=== PATIENT | male | born 1960 | race Caucasian/White ===

== ENCOUNTER 2017-06-21 03:13 | Inpatient (IN) ==
[2017-06-21] MEDS ORDERED: Ipratropium/Albuterol Neb 3 ML IH PRN (06:22)
[2017-06-21] MEDS ORDERED: Insulin Human Regular 100 UNIT in 0.9 % Sodium Chloride 100 ML IVC SCH (06:30)
[2017-06-21] MEDS ORDERED: Azithromycin 500 MG in D5% in Water 250 ML IVPB SCH (07:00)
[2017-06-21 08:11] LABS: Hematocrit 37.4 % (37.5-50.1)
[2017-06-21 08:12] LABS: Hemoglobin 13.1 g/dL (12.9-16.9); Mean Corpuscular Hemoglobin 32.4 pg (28.0-33.3); Mean Corpuscular Volume 92.6 fL (83.0-100.0); Mean Platelet Volume 9.9 fL (9.4-12.4); Platelet Count 299 K/mcL (140-400); Red Blood Count 4.04 M/mcL (4.19-5.50); Red Cell Distribution Width 12.7 % (11.5-14.5)
[2017-06-21 08:24] LABS: Alanine Aminotransferase 10 Units/L (0-55); Albumin 2.5 g/dL (3.5-5.0); Albumin/Globulin Ratio 0.6 (1.1-2.2); Alkaline Phosphatase 80 Units/L (38-126); Aspartate Amino Transferase 7 Units/L (5-34); BUN/Creatinine Ratio 14 (6-26); Bilirubin,Total 0.4 mg/dL (0.2-1.2); Blood Urea Nitrogen 13 mg/dL (8-26); Carbon Dioxide 25 mEq/L (19-29); Chloride 97 mEq/L (98-109); Globulin 4.5 g/dL (2.4-3.5); Glucose 182 mg/dL (70-99); Osmolality,Calculated 279 (280-300); Potassium 3.8 mEq/L (3.5-4.5); Sodium 132 mEq/L (136-145); eGFR For African Americans > 60 (> 60); eGFR For Non-African Americans > 60 (> 60)
[2017-06-21] MEDS ORDERED: Vancomycin 1,250 MG in D5% in Water 250 ML IVPB SCH (08:34)
[2017-06-21] MEDS ORDERED: Pregabalin 75 MG CAPSULE PO SCH (09:00)
[2017-06-21] MEDS ORDERED: Isosorbide MONOnitrate (24 HR) 30 MG TAB.ER.24H PO SCH (09:00)
[2017-06-21] MEDS ORDERED: Ipratropium/Albuterol Neb 3 ML IH SCH ×2 (09:00→10:00)
[2017-06-21 09:19] LABS: Basophils # 0.6 K/mcL (0.0-0.2); Neutrophils # 20.7 K/mcL (1.6-8.9)
[2017-06-21 09:21] LABS: Dohle Bodies Present (Not Present); Nucleated Red Blood Cells 1 /100 WBC (0); Platelet Estimate Normal (Normal)
[2017-06-21 09:41] LABS: Platelet Clumps Few (Not Present)
[2017-06-21] MEDS: Ranolazine 500 MG TAB.ER.12H PO SCH ×2 (09:54→20:00)
[2017-06-21] MEDS: 0.9 % Sodium Chloride 1,000 ML IVC SCH ×2 (09:54→22:57)
[2017-06-21] MEDS: Aspirin 81 MG TAB.CHEW PO SCH (09:54)
[2017-06-21] MEDS: Colchicine 0.6 MG TABLET PO SCH (09:54)
[2017-06-21] MEDS: Vancomycin 1,000 MG in D5% in Water 250 ML IVPB SCH ×2 (09:55→20:01)
--- NOTE | 2017-06-21 10:37 | Internal Med History&Physical ---
Date of Encounter: 06/21/17 Time of Encounter: 09:00 Assessment and Plan (1) COPD with exacerbation Current visit: Yes Status: Acute (2) Pneumonia due to gram-negative bacteria Current visit: Yes Status: Acute (3) DM2 (diabetes mellitus, type 2) Current visit: Yes Status: Acute Qualifiers: Diabetes mellitus complication status: without complication Diabetes mellitus chcf insulin use: with chcf use Qualified Code(s): E11.9 - Type 2 diabetes mellitus without complications; Z79.4 - halfway (current) use of insulin; Z79.4 - roasterman (current) use of insulin; Z79.4 - halfway ( current) use of insulin; Z79.4 - halfway (current) use of insulin (4) HTN (hypertension), benign Current visit: Yes Status: Acute 56yo male poor historian who presents as a transfer from [place] ED and found to have COPD exacerbation, pneumonia and hyperglycemia - Start Oral prednisone, Duonebs and mucinex. supplemental oxygen. Will not do IV steroids due to hyperglycemia. - Blood glucose levels have improved, pt was sent from [place] on Insulin drip but she is no longer acidotic, so will stop drip and place on SQ insulin with accuchecks - Will start on Vanc and Cefepime for pneumonia and monitor. Hope we can deescalate abx in 24hrs. Check Blood cultures. - Home meds reviewed and resumed as deemed appropriate. BP meds held due to hypotension. - GI and DVT prophylaxis with PPI and Heparin SQ. Internal Medicine - H&P: HPI Chief complaint: Cough, congestion, chills Admitted From: Home Plans for Post Hospital Care: Home History of present illness: Mr. Ibanez is a 56 year old male who was transferred from [place] ED, he has a pmh of DM2, CAD, COPD and tobacco abuse. He is a poor historian. He presented to the ED with complains for not feeling good for 2wks. He said he had been having cough and congestion for 2 weeks with no improvement. He reports he has also had chills but no fever. He denies chest pain, abdominal pain or dysuria. CXR done at [place] suggests possible vascular congestion but no visible infiltrates. Past Med Surg Social Fam HX - Past Medical History Medical history: COPD, diabetes, glaucoma, hyperlipidemia, hypertension, myocardial infarction, seizures, other Psychiatric history: depression - Past Surgical History Surgical History: splenectomy, tracheostomy, other - Social History Smoking Status: Former smoker Smokeless Tobacco Status: No Alcohol use: none Drug use: none - Family History Father Living Status: Hx Family Cardiac Disorders: Yes (CAD) Hx Family Cancer: Yes (lung CA) Internal Medicine - H&P: Meds RX: Canagliflozin/Metformin HCl [Invokamet 150-1,000 mg Tablet] 1 each PO BID [History] RX: Colchicine [Colcrys] 0.6 mg PO DAILY 04/08/15 [History] RX: DULoxetine [Cymbalta] 60 mg PO DAILY 04/08/15 [History] RX: Nortriptyline HCl 25 mg PO HS 04/08/15 [History] RX: OxyCODONE/APAP 7.5/325 [Percocet 7.5/325] 1 each PO Q8HR 04/08/15 [History] RX: Oxygen 1 each .ROUTE PRN PRN 04/08/15 [History] RX: Pravastatin Sodium [Pravachol] 20 mg PO DAILY 04/08/15 [History] RX: Pregabalin [Lyrica] 300 mg PO BID 04/08/15 [History] RX: SitaGLIPtin [Januvia] 100 mg PO DAILY PRN 04/08/15 [History] RX: Insulin Glargine,Hum.rec.anlog [Lantus Solostar] 80 unit SQ BID 04/09/15 [ History] RX: Insulin LISPRO [HumaLOG] 75 units SQ TIDWM 04/09/15 [History] RX: Albuterol Sulfate [Proair Hfa] 2 puff IH Q4H PRN 05/19/16 [History] RX: Aspirin 81 mg PO DAILY 05/19/16 [History] RX: Docusate Sodium [Dok] 100 mg PO DAILY PRN 05/19/16 [History] RX: Fluticasone/Salmeterol [Advair 250-50 Diskus] 1 puff IH BID 05/19/16 [ History] RX: Ipratropium/Albuterol Neb [Duoneb] 3 ml IH Q6HR PRN 05/19/16 [History] RX: Polyethylene Glycol 3350 [MiraLAX] 17 gm PO DAILY PRN 05/19/16 [History] RX: Clopidogrel [Plavix] 75 mg PO DAILY #30 tablet 05/20/16 [Rx] RX: Metoprolol [Lopressor] 25 mg PO BID #60 tablet 05/20/16 [Rx] RX: Nitroglycerin 0.4 mg SL Q5MIN PRN #30 tab.subl 05/20/16 [Rx] Allopurinol [Zyloprim 100 MG] 100 mg PO DAILY 06/21/17 [History] Isosorbide MONOnitrate (24 HR) [Imdur] 30 mg PO DAILY 06/21/17 [History] Ranolazine [Ranexa] 500 mg PO BID 06/21/17 [History] 3 Allergy/AdvReac Type Severity Reaction Status Date / Time No Known Allergies Allergy Verified 06/20/17 20:00 All Systems PM: A 10-system review of systems was performed and is negative for pertinent findings except as documented above in the HPI. - Constitutional Constitutional: chills, fever(s), no night sweats - EENT Eyes: no change in vision, no discharge, no pain, no photophobia Ears: no ear discharge, no ear pain, no tinnitus Nose, mouth and throat: no dysphagia, no nasal discharge, no neck pain, no sore throat - Cardiovascular Cardiovascular ROS IM: dyspnea, no chest pain, no diaphoresis, no lightheadedness, no palpitations, no syncope - Respiratory Respiratory: cough, dyspnea, no wheezing, no excessive phlegm production - Gastrointestinal Gastrointestinal: no abdominal pain, no diarrhea, no hematemesis, no hematochezia, no melena, no nausea, no vomiting - Genitourinary Genitourinary ROS male: no difficulty urinating - Musculoskeletal Musculoskeletal ROS IM: no numbness, no tingling - Integumentary Integumentary IM: no rash, no unusual bruising - Neurological Neurological ROS: no confusion, no convulsions, no focal weakness, no numbness, no tingling, no tremor(s) - Hematologic/Lymphatic Hematologic/Lymphatic: no easy bruising - Constitutional Vitals: Temp Pulse Resp BP Pulse Ox 98.8 F 93 18 100/51 88 06/21/17 07:30 06/21/17 07:30 06/21/17 07:30 06/21/17 07:30 06/21/17 07:30 General appearance: Present: A&O X 3 - Head Head exam: Present: atraumatic, normocephalic - Eye Eye exam: Present: PERRL, conjuntiva pink, sclera anicteric Pupils: Present: PERRL - Neck Neck exam general surgery: Present: supple, trachea midline. Absent: lymphadenopathy - Respiratory Respiratory exam: Present: rhonchi, wheezes. Absent: accessory muscle use, rales - Cardiovascular Cardiovascular exam: Present: RRR, +S1, +S2. Absent: diastolic murmur, gallop, rubs, systolic murmur - GI/Abdominal GI/Abdominal exam: Present: normal bowel sounds, soft, no peritoneal signs. Absent: distended, tenderness - Extremities Exam Extremities exam: Present: warm, radial pulses palpable and symmetrical. Absent : calf tenderness, cyanotic, pedal edema - Neurological Exam Neurological exam: Present: CN II-XII intact, oriented X3, no focal deficits. Absent: pronater drift, facial droop, speech deficit - Skin Skin exam: Present: dry, intact Internal Med - H&P Results - Labs CBC & Chem 7: 06/21/17 08:03 06/21/17 08:03 Labs: Short CBC 06/21/17 Range/Units 08:03 WBC 31.4 H* (4.3-11.1) K/mcL Hgb 13.1 D (12.9-16.9) g/dL Hct 37.4 L (37.5-50.1) % Plt Count 299 (140-400) K/mcL Neutrophils # 20.7 H (1.6-8.9) K/mcL BMP 06/21/17 08:03 Sodium 132 L Potassium 3.8 Chloride 97 L Carbon Dioxide 25 BUN 13 Creatinine 0.95 Glucose 182 H Calcium 9.0 Liver Function 06/21/17 Range/Units 08:03 Total Bilirubin 0.4 (0.2-1.2) mg/dL AST 7 (5-34) Units/L ALT 10 (0-55) Units/L Alkaline Phosphatase 80 (38-126) Units/L Albumin 2.5 L D (3.5-5.0) g/dL
[2017-06-21] MEDS: Ipratropium/Albuterol Neb 3 ML IH SCH ×3 (12:06→20:50)
[2017-06-21 12:22] LABS: ABG Base Excess 2 mEq/L (-2 to 3); ABG HCO3 26 mEq/L (21-27); ABG Oxygen Saturation 90 % (95-98); ABG PCO2 38 mmHg (35-45); ABG PH 7.45 pH Units (7.32-7.45); ABG PO2 56 mmHg (85-104); ABG TCO2 27 mEq/L (20-26)
[2017-06-21 12:56] LABS: Bilirubin,Urine Negative (Negative); Blood,Urine Negative (Negative); Clarity,Urine Clear (Clear); Color,Urine Yellow (Yellow); Glucose,Urine (UA) >=1000 mg/dL (Normal); Ketones,Urine Trace mg/dL (Negative); Leukocyte Esterase,Urine Negative (Negative); Nitrite,Urine Negative (Negative); Protein,Urine 30 mg/dL (Neg-Trace); Specific Gravity,Urine > 1.030 (1.010-1.025); Urobilinogen,Urine Normal (Normal)
[2017-06-21] MEDS: predniSONE 20 MG TABLET PO SCH (12:58)
[2017-06-21] MEDS: Insulin LISPRO 300 UNITS/3 ML VIAL SQ SCH ×2 (12:59→17:04)
[2017-06-21] MEDS: Cefepime HCl 2,000 MG in Water for inj. (sterile) 20 ML IVP SCH ×2 (12:59→19:58)
[2017-06-21 13:12] LABS: Bacteria,Urine None Seen per hpf (None-Few); RBC,Urine 0-3 per hpf (0-3); Squamous Epithelial Cell,Urine Few per lpf (None-Few); WBC,Urine 0-3 per hpf (0-3)
[2017-06-21] MEDS: *HR* OxyCODONE/APAP 7.5/325 TABLET PO PRN (17:02)
[2017-06-21] MEDS: *HR* Heparin 5,000 UNIT/ML VIAL SQ SCH (17:03)
[2017-06-21] MEDS ORDERED: *HR* Heparin 5,000 UNIT/ML VIAL SQ SCH (18:00)
[2017-06-21] MEDS: Insulin DETEMIR 100 UNIT/ML X5UNITS SQ SCH (19:58)
[2017-06-22] MEDS: Ipratropium/Albuterol Neb 3 ML IH SCH ×6 (00:45→21:05)
[2017-06-22] MEDS: Cefepime HCl 2,000 MG in Water for inj. (sterile) 20 ML IVP SCH (04:02)
[2017-06-22 04:14] LABS: Hematocrit 35.2 % (37.5-50.1); Hemoglobin 12.2 g/dL (12.9-16.9); Mean Corpuscular HGB Conc 34.7 g/dL (31.6-35.5); Mean Corpuscular Hemoglobin 32.5 pg (28.0-33.3); Mean Corpuscular Volume 93.9 fL (83.0-100.0); Mean Platelet Volume 10.2 fL (9.4-12.4); Platelet Count 309 K/mcL (140-400); Red Blood Count 3.75 M/mcL (4.19-5.50)
[2017-06-22 04:29] LABS: BUN/Creatinine Ratio 21 (6-26); Blood Urea Nitrogen 14 mg/dL (8-26); Carbon Dioxide 25 mEq/L (19-29); Chloride 105 mEq/L (98-109); Glucose 190 mg/dL (70-99); Magnesium 2.1 mg/dL (1.6-2.6); Osmolality,Calculated 292 (280-300); Potassium 3.9 mEq/L (3.5-4.5); Sodium 138 mEq/L (136-145); eGFR For African Americans > 60 (> 60); eGFR For Non-African Americans > 60 (> 60)
[2017-06-22] MEDS: *HR* Heparin 5,000 UNIT/ML VIAL SQ SCH ×2 (05:29→17:07)
[2017-06-22] MEDS: *HR* OxyCODONE/APAP 7.5/325 TABLET PO PRN (05:34)
[2017-06-22 05:44] LABS: Lymphocytes # 2.5 K/mcL (0.6-4.6); Monocytes # 1.3 K/mcL (0.0-1.3); Neutrophils # 27.9 K/mcL (1.6-8.9); Platelet Estimate Normal (Normal)
[2017-06-22] MEDS: Insulin LISPRO 300 UNITS/3 ML VIAL SQ SCH ×3 (08:26→17:06)
[2017-06-22] MEDS: predniSONE 20 MG TABLET PO SCH (08:37)
[2017-06-22] MEDS: Aspirin 81 MG TAB.CHEW PO SCH (08:37)
[2017-06-22] MEDS: Ranolazine 500 MG TAB.ER.12H PO SCH ×2 (08:37→21:47)
[2017-06-22] MEDS: Colchicine 0.6 MG TABLET PO SCH (08:37)
[2017-06-22] MEDS: Insulin DETEMIR 100 UNIT/ML X5UNITS SQ SCH ×2 (08:38→21:46)
[2017-06-22] MEDS: Vancomycin 1,000 MG in D5% in Water 250 ML IVPB SCH ×2 (08:38→21:45)
[2017-06-22] MEDS ORDERED: Piperacillin/Tazobactam 3.375 GM in Water for inj. (sterile) 20 ML IVP ONE (13:07)
--- NOTE | 2017-06-22 13:14 | Internal Med Progress Note ---
Date of Encounter: 06/22/17 Time of Encounter: 13:12 - Assessment and plan (1) Pneumonia due to gram-positive bacteria Current Visit: Yes Status: Acute (2) Bacteremia due to Gram-positive bacteria Current Visit: Yes Status: Acute (3) COPD with exacerbation Current Visit: Yes Status: Acute (4) DM2 (diabetes mellitus, type 2) Current Visit: Yes Status: Acute Qualifiers: Diabetes mellitus complication status: without complication Diabetes mellitus dedicated intermodal truck driver insulin use: with detention use Qualified Code(s): E11.9 - Type 2 diabetes mellitus without complications; Z79.4 - long term care social worker (current) use of insulin; Z79.4 - MCFP (current) use of insulin; Z79.4 - [facility] ( current) use of insulin; Z79.4 - [facility]FP (current) use of insulin (5) HTN (hypertension), benign Current Visit: Yes Status: Acute Assessment and plan: Persistently elevated leukocytosis, likely steroids are contributing Bactermia noted on Clood culture, will repeat cultures. Will change antibiotics to Zosyn and continue Vanc. Will consult ID for recommendations. Will order a Echo to rule out vegetation. continue steroids and nebs, will decrease Prednisone to 40mg. continue Accucheck with insulin coverage. DVT prophylaxis. - Subjective Interval history: pt reports some improvement but still feeling weak. - Constitutional Vitals: Temp Pulse Resp BP Pulse Ox 98.4 F 74 18 124/68 92 06/22/17 11:47 06/22/17 11:47 06/22/17 11:47 06/22/17 11:47 06/22/17 11:47 General appearance: Present: A&O X 3 - Head Head exam: Present: atraumatic, normocephalic - Eye Eye exam: Present: PERRL, conjuntiva pink, sclera anicteric Pupils: Present: PERRL - Neck Neck exam general surgery: Present: supple, trachea midline. Absent: lymphadenopathy - Respiratory Respiratory exam: Present: decreased breath sounds, CTAB, rhonchi. Absent: accessory muscle use, rales, wheezes - Cardiovascular Cardiovascular exam: Present: RRR, +S1, +S2. Absent: diastolic murmur, gallop, rubs, systolic murmur - GI/Abdominal GI/Abdominal exam: Present: normal bowel sounds, soft, no peritoneal signs. Absent: distended, tenderness - Extremities Exam Extremities exam: Present: warm, radial pulses palpable and symmetrical. Absent : calf tenderness, cyanotic, pedal edema - Neurological Exam Neurological exam: Present: CN II-XII intact, oriented X3, no focal deficits. Absent: pronater drift, facial droop, speech deficit - Skin Skin exam: Present: dry, intact Internal Medicine: Result - Labs CBC & Chem 7: 06/22/17 03:47 06/22/17 03:47 Labs: Short CBC 06/22/17 Range/Units 03:47 WBC 31.7 H* (4.3-11.1) K/mcL Hgb 12.2 L (12.9-16.9) g/dL Hct 35.2 L (37.5-50.1) % Plt Count 309 (140-400) K/mcL Neutrophils # 27.9 H (1.6-8.9) K/mcL BMP 06/22/17 03:47 Sodium 138 Potassium 3.9 Chloride 105 Carbon Dioxide 25 BUN 14 Creatinine 0.68 L Glucose 190 H Calcium 9.0 - ABG Interpretation ABG results: ABG ABG pH 7.45 pH Units (7.32-7.45) 06/21/17 12:18 ABG pCO2 38 mmHg (35-45) 06/21/17 12:18 ABG pO2 56 mmHg (85-104) L 06/21/17 12:18 ABG O2 Saturation 90 % (95-98) L 06/21/17 12:18 Consult Discharge Plan - Plan Referrals: Catrachita Hernández CNP [Primary Care Provider] - 06/29/17 1:00 pm
[2017-06-22] MEDS: 0.9 % Sodium Chloride 1,000 ML IVC SCH ×2 (13:26→20:17)
[2017-06-22] MEDS: Piperacillin/Tazobactam 3.375 GM/200 ML BAG IVPB SCH ×2 (14:54→21:50)
[2017-06-22] MEDS ORDERED: MetroNIDAZOLE 500 MG/100 ML 500 MG/100 ML BAG IVPB SCH (16:00)
[2017-06-23] MEDS: Ipratropium/Albuterol Neb 3 ML IH SCH ×6 (00:18→21:47)
[2017-06-23] MEDS: Vancomycin 1,250 MG in D5% in Water 250 ML IVPB SCH ×2 (06:27→17:54)
[2017-06-23] MEDS: Piperacillin/Tazobactam 3.375 GM/200 ML BAG IVPB SCH ×3 (06:28→22:20)
[2017-06-23] MEDS: *HR* Heparin 5,000 UNIT/ML VIAL SQ SCH ×2 (06:29→17:53)
[2017-06-23 06:44] LABS: Eosinophils % 0.1 %; Immature Granulocytes % 1.8 % (0-4); Nucleated Red Blood Cells 0.1 /100 WBC (0); Red Cell Distribution Width 13.2 % (11.5-14.5)
[2017-06-23 06:45] LABS: Basophils % 0.4 %; Hematocrit 37.1 % (37.5-50.1); Hemoglobin 12.7 g/dL (12.9-16.9); Lymphocytes # 4.1 K/mcL (0.6-4.6); Lymphocytes % 12.1 %; Mean Corpuscular HGB Conc 34.2 g/dL (31.6-35.5); Mean Corpuscular Hemoglobin 32.4 pg (28.0-33.3); Mean Corpuscular Volume 94.6 fL (83.0-100.0); Monocytes # 2.5 K/mcL (0.0-1.3); Monocytes % 7.5 %; Neutrophils # 26.4 K/mcL (1.6-8.9); Platelet Count 344 K/mcL (140-400); Red Blood Count 3.92 M/mcL (4.19-5.50); Segmented Neutrophils % 78.1 %
[2017-06-23 06:48] LABS: Basophils # 0.1 K/mcL (0.0-0.2)
[2017-06-23 06:56] LABS: Platelet Estimate Normal (Normal)
[2017-06-23 06:57] LABS: BUN/Creatinine Ratio 17 (6-26); Blood Urea Nitrogen 11 mg/dL (8-26); Carbon Dioxide 25 mEq/L (19-29); Chloride 110 mEq/L (98-109); Glucose 60 mg/dL (70-99); Magnesium 2.1 mg/dL (1.6-2.6); Osmolality,Calculated 293 (280-300); Potassium 3.2 mEq/L (3.5-4.5); Sodium 143 mEq/L (136-145); eGFR For African Americans > 60 (> 60); eGFR For Non-African Americans > 60 (> 60)
[2017-06-23] MEDS: 0.9 % Sodium Chloride 1,000 ML IVC SCH ×3 (08:39→20:40)
[2017-06-23] MEDS: Insulin DETEMIR 100 UNIT/ML X5UNITS SQ SCH ×2 (08:43→20:38)
[2017-06-23] MEDS: Aspirin 81 MG TAB.CHEW PO SCH (08:43)
[2017-06-23] MEDS: Colchicine 0.6 MG TABLET PO SCH (08:43)
[2017-06-23] MEDS: predniSONE 20 MG TABLET PO SCH (08:43)
[2017-06-23] MEDS: Insulin LISPRO 300 UNITS/3 ML VIAL SQ SCH ×5 (08:43→20:40)
[2017-06-23] MEDS: Ranolazine 500 MG TAB.ER.12H PO SCH ×2 (08:43→20:38)
--- NOTE | 2017-06-23 13:41 | Internal Med Progress Note ---
<Hola Crystal - Last Filed: 06/23/17 13:38> Date of Encounter: 06/23/17 Time of Encounter: 13:38 - Assessment and plan (1) MRSA bacteremia Current Visit: Yes Status: Acute Assessment and plan: MRSA + Blood cultures - On Vancomycin Echocardiogram ordered Echocardiogram from 05/2016: Impressions: Mobile strands attached to mitral valve most consistent with ruptured chordae, less likely vegetation. Clinical correlation is advised. Mild mitral regurgitation. No pulmonary hypertension. LVEF 55-60%. Severely dilated left atrium. (2) Pneumonia due to gram-positive bacteria Current Visit: Yes Status: Acute Assessment and plan: Admitted and treated for COPD exacerbation plus pneumonia. Blood cultures were obtained growing MRSA. Chest CT described as below concerning for MRSA pneumonia versus septic emboli. - Echocardiogram ordered for evaluation of bowels concern for endocarditis. CT of the chest and abdomen: IMPRESSION: Multiple peripherally located areas of focal airspace consolidation and air bronchograms and both lungs suggesting multifocal pneumonia. In addition, there multiple pulmonary nodules measuring up to 16 x 14 mm in size seen in both lungs as described above. Findings suggest multifocal pneumonia although septic emboli are in the differential. Recommend close interval follow-up to resolution. Multiple borderline sized mediastinal lymph nodes suggesting reactive mediastinal lymphadenopathy. No acute process in the abdomen. Large amount of stool throughout the colon which can be seen with constipation. Plan: - Vancomycin IV may need 6 weeks treatment (3) Coronary artery disease Current Visit: No Status: Chronic Assessment and plan: Known hx of CAD - previous echocardiogram as listed above. - Continue to maximize cardiac medications: Diabetic control, daily aspirin, Plavix, simvastatin, Qualifiers: Coronary Disease-Associated Artery/Lesion type: lime artery [place] vs. transplanted heart: lime heart Associated angina: with unspecified angina Qualified Code(s): I25.119 - Atherosclerotic heart disease of lime coronary artery with unspecified angina pectoris (4) DM2 (diabetes mellitus, type 2) Current Visit: Yes Status: Acute Assessment and plan: Known type II diabetic, currently glucose is 60 plan: - Continue current dose N - Before meals at bedtime glucose checks - Low dose inpatient sliding scale. Qualifiers: Diabetes mellitus complication status: without complication Diabetes mellitus assisted insulin use: with termination clerk use Qualified Code(s): E11.9 - Type 2 diabetes mellitus without complications; Z79.4 - correction (current) use of insulin; Z79.4 - correction (current) use of insulin; Z79.4 - termination clerk ( current) use of insulin; Z79.4 - correction (current) use of insulin (5) HTN (hypertension), benign Current Visit: Yes Status: Acute Assessment and plan: Persistently elevated leukocytosis, likely steroids are contributing Bactermia noted on Clood culture, will repeat cultures. Will change antibiotics to Zosyn and continue Vanc. Will consult ID for recommendations. Will order a Echo to rule out vegetation. continue steroids and nebs, will decrease Prednisone to 40mg. continue Accucheck with insulin coverage. DVT prophylaxis. (6) Leukocytosis Current Visit: Yes Status: Acute Assessment and plan: WBC 33, likely secondary to MRSA bacteremia, and suspected MRSA pneumonia. - Patient on vancomycin, continue to monitor daily. Qualifiers: Leukocytosis type: unspecified Qualified Code(s): D72.829 - Elevated white blood cell count, unspecified (7) DVT prophylaxis Current Visit: Yes Status: Acute Assessment and plan: SQ Heparin q8hrs. - Subjective Interval history: Mr. Ibanez has been seen and evaluated patient bedside this morning. He denies any fevers, chills, sweating, shortness of breath, chest pain or palpitations, abdominal pain nausea vomiting diarrhea. He states that he is feeling better since admission. When asked about any lesions on his body he points to his arms and his head and says that he has been bitten by myself home. According to his family member at bedside he lives a very poor living conditions and is known to be a hoarder. He says that moist by him frequently at night and that the lesions on his arms and had her from the mice. When discussing his current medical situation and plan his family member at bedside states that he would likely not be compliant and unable to make any outpatient antibiotic treatments if necessary. They are very concerned about his well-being. - Constitutional Vitals: Temp Pulse Resp BP Pulse Ox 98.1 F 80 17 135/73 97 06/23/17 11:15 06/23/17 11:29 06/23/17 11:15 06/23/17 11:15 06/23/17 11:15 General appearance: Present: A&O X 3 - Head Head exam: Present: atraumatic, normocephalic - Eye Eye exam: Present: PERRL, conjuntiva pink, sclera anicteric Pupils: Present: PERRL - Neck Neck exam general surgery: Present: supple, trachea midline. Absent: lymphadenopathy - Respiratory Respiratory exam: Present: CTAB. Absent: accessory muscle use, rales, rhonchi, wheezes - Cardiovascular Cardiovascular exam: Present: RRR, +S1, +S2. Absent: diastolic murmur, gallop, rubs, systolic murmur - GI/Abdominal GI/Abdominal exam: Present: normal bowel sounds, soft, no peritoneal signs. Absent: distended, tenderness - Extremities Exam Extremities exam: Present: warm, radial pulses palpable and symmetrical. Absent : calf tenderness, cyanotic, pedal edema - Neurological Exam Neurological exam: Present: alert, oriented X3, no focal deficits. Absent: pronater drift, facial droop, speech deficit - Skin Skin exam: Present: dry, intact Additional comments: healing scabs on his scalp, and dorsal forearms bilaterally. Internal Medicine: Result - Labs CBC & Chem 7: 06/23/17 06:30 06/23/17 06:30 Labs: Short CBC 06/23/17 Range/Units 06:30 WBC 33.8 H* (4.3-11.1) K/mcL Hgb 12.7 L (12.9-16.9) g/dL Hct 37.1 L (37.5-50.1) % Plt Count 344 (140-400) K/mcL Neutrophils # 26.4 H (1.6-8.9) K/mcL BMP 06/23/17 06:30 Sodium 143 Potassium 3.2 L Chloride 110 H Carbon Dioxide 25 BUN 11 Creatinine 0.63 L Glucose 60 L Calcium 9.0 - ABG Interpretation ABG results: ABG ABG pH 7.45 pH Units (7.32-7.45) 06/21/17 12:18 ABG pCO2 38 mmHg (35-45) 06/21/17 12:18 ABG pO2 56 mmHg (85-104) L 06/21/17 12:18 ABG O2 Saturation 90 % (95-98) L 06/21/17 12:18 - Impressions Impressions Abdomen CT 06/23/17 12:00 IMPRESSION: Multiple peripherally located areas of focal airspace consolidation and air bronchograms and both lungs suggesting multifocal pneumonia. In addition, there multiple pulmonary nodules measuring up to 16 x 14 mm in size seen in both lungs as described above. Findings suggest multifocal pneumonia although septic emboli are in the differential. Recommend close interval follow-up to resolution. Multiple borderline sized mediastinal lymph nodes suggesting reactive mediastinal lymphadenopathy. No acute process in the abdomen. Large amount of stool throughout the colon which can be seen with constipation. D/ / Isaias Tineo MD / Isaias Tineo MD Interpreting Provider: Isaias Tineo MD Chest CT 06/23/17 12:00 IMPRESSION: Multiple peripherally located areas of focal airspace consolidation and air bronchograms and both lungs suggesting multifocal pneumonia. In addition, there multiple pulmonary nodules measuring up to 16 x 14 mm in size seen in both lungs as described above. Findings suggest multifocal pneumonia although septic emboli are in the differential. Recommend close interval follow-up to resolution. Multiple borderline sized mediastinal lymph nodes suggesting reactive mediastinal lymphadenopathy. No acute process in the abdomen. Large amount of stool throughout the colon which can be seen with constipation. D/ / Isaias Tineo MD / Isaias Tineo MD Interpreting Provider: Isaias Tineo MD Consult Discharge Plan - Plan Referrals: Catrahcita Hernández CNP [Primary Care Provider] - 06/29/17 1:00 pm <Apolinar Cabrera - Last Filed: 06/23/17 18:01> Date of Encounter: 06/23/17 - Assessment and plan (1) MRSA (methicillin resistant Staphylococcus aureus) infection Current Visit: Yes Status: Acute (2) MRSA bacteremia Current Visit: Yes Status: Acute (3) MRSA pneumonia Current Visit: Yes Status: Suspected Qualifiers: Laterality: bilateral Lung location: lower lobe of lung Qualified Code(s) : J15.212 - Pneumonia due to Methicillin resistant Staphylococcus aureus (4) DKA (diabetic ketoacidoses) Current Visit: Yes Status: Resolved Qualifiers: Diabetes mellitus type: type 2 Diabetes mellitus complication detail: without coma Qualified Code(s): E11.10 - Type 2 diabetes mellitus with ketoacidosis without coma (5) HTN (hypertension), benign Current Visit: Yes Status: Acute (6) COPD (chronic obstructive pulmonary disease) Current Visit: No Status: Chronic Qualifiers: COPD type: chronic bronchitis Chronic bronchitis type: simple Qualified Code(s): J41.0 - Simple chronic bronchitis (7) Coronary artery disease Current Visit: No Status: Chronic Qualifiers: Coronary Disease-Associated Artery/Lesion type: lime artery [place] vs. transplanted heart: lime heart Associated angina: without angina Qualified Code(s): I25.10 - Atherosclerotic heart disease of lime coronary artery without angina pectoris (8) Hyperlipidemia Current Visit: No Status: Chronic Qualifiers: Hyperlipidemia type: mixed hyperlipidemia Qualified Code(s): E78.2 - Mixed hyperlipidemia (9) Noncompliance Current Visit: No Status: Chronic - Constitutional Vitals: Temp Pulse Resp BP Pulse Ox 99 F 93 18 136/76 93 06/23/17 16:45 06/23/17 16:45 06/23/17 16:45 06/23/17 16:45 06/23/17 16:45 Internal Medicine: Result - Labs CBC & Chem 7: 06/23/17 06:30 06/23/17 06:30 Labs: Short CBC 06/23/17 Range/Units 06:30 WBC 33.8 H* (4.3-11.1) K/mcL Hgb 12.7 L (12.9-16.9) g/dL Hct 37.1 L (37.5-50.1) % Plt Count 344 (140-400) K/mcL Neutrophils # 26.4 H (1.6-8.9) K/mcL BMP 06/23/17 06:30 Sodium 143 Potassium 3.2 L Chloride 110 H Carbon Dioxide 25 BUN 11 Creatinine 0.63 L Glucose 60 L Calcium 9.0 - ABG Interpretation ABG results: ABG ABG pH 7.45 pH Units (7.32-7.45) 06/21/17 12:18 ABG pCO2 38 mmHg (35-45) 06/21/17 12:18 ABG pO2 56 mmHg (85-104) L 06/21/17 12:18 ABG O2 Saturation 90 % (95-98) L 06/21/17 12:18 - Impressions Impressions Abdomen CT 06/23/17 12:00 IMPRESSION: Multiple peripherally located areas of focal airspace consolidation and air bronchograms and both lungs suggesting multifocal pneumonia. In addition, there are multiple pulmonary nodules measuring up to 16 x 14 mm in size seen in both lungs as described above. Findings suggest multifocal pneumonia although septic emboli are in the differential. Recommend close interval follow-up to resolution. Multiple borderline sized mediastinal lymph nodes suggesting reactive mediastinal lymphadenopathy. No acute process in the abdomen. Large amount of stool throughout the colon which can be seen with constipation. D/ 06/23/2017 14:07:31 Isaias Tineo MD / [place] Interpreting Provider: Isaias Tineo MD Chest CT 06/23/17 12:00 IMPRESSION: Multiple peripherally located areas of focal airspace consolidation and air bronchograms and both lungs suggesting multifocal pneumonia. In addition, there are multiple pulmonary nodules measuring up to 16 x 14 mm in size seen in both lungs as described above. Findings suggest multifocal pneumonia although septic emboli are in the differential. Recommend close interval follow-up to resolution. Multiple borderline sized mediastinal lymph nodes suggesting reactive mediastinal lymphadenopathy. No acute process in the abdomen. Large amount of stool throughout the colon which can be seen with constipation. D/ / 06/23/2017 14:07:31 Isaias Tineo MD / [place] Interpreting Provider: Isaias Tineo MD - Attending Attestation I examined this patient and my medical decision-making was reviewed with the Resident Physician on 06/23/17. I agree with the documented findings, disposition and treatment plan as described except to the extent set forth below. Mr Ibanez is currently admitted for acute DKA and MRSA bacteremia. He remains moderate to high risk due to potential for worsening clinical status. Mr Ibanez is eating dinner. He is coughing some. No fever or chills. Echo is pending. CT of chest shows multifocal areas of pneumonia or septic emboli. Denies pain. Exam Alert. Comfortable Mucus membranes dry Multiple skin wounds (reportedly mouse bites) Heart reg - no overt murmur heard Lungs with crackles heard Abd soft I/P 1. MRSA bacteremia 2. Multifocal pneumonia versus septic emboli 3. DKA resolved Further diagnoses and plan as above.
[2017-06-23] MEDS ORDERED: D5% in Water 1,000 ML IVC PRN (13:53)
[2017-06-23] MEDS ORDERED: Dextrose Gel 15 GM/37.5 ML TUBE PO PRN ×2 (13:53)
[2017-06-24] MEDS: Ipratropium/Albuterol Neb 3 ML IH SCH ×8 (00:03→23:07)
[2017-06-24] MEDS: Vancomycin 1,250 MG in D5% in Water 250 ML IVPB SCH ×2 (05:40→18:05)
[2017-06-24] MEDS: Piperacillin/Tazobactam 3.375 GM/200 ML BAG IVPB SCH (05:41)
[2017-06-24] MEDS: *HR* Heparin 5,000 UNIT/ML VIAL SQ SCH ×2 (05:42→18:05)
[2017-06-24 07:43] LABS: Hemoglobin 12.6 g/dL (12.9-16.9); Mean Corpuscular HGB Conc 33.2 g/dL (31.6-35.5); Mean Corpuscular Hemoglobin 31.9 pg (28.0-33.3); Mean Corpuscular Volume 96.2 fL (83.0-100.0); Mean Platelet Volume 9.8 fL (9.4-12.4); Nucleated Red Blood Cells 0.1 /100 WBC (0); Platelet Count 368 K/mcL (140-400); Red Blood Count 3.95 M/mcL (4.19-5.50); Red Cell Distribution Width 13.4 % (11.5-14.5)
[2017-06-24 07:57] LABS: Alanine Aminotransferase 14 Units/L (0-55); Albumin 2.4 g/dL (3.5-5.0); Albumin/Globulin Ratio 0.5 (1.1-2.2); Alkaline Phosphatase 76 Units/L (38-126); Aspartate Amino Transferase 15 Units/L (5-34); BUN/Creatinine Ratio 20 (6-26); Bilirubin,Total 0.2 mg/dL (0.2-1.2); Blood Urea Nitrogen 11 mg/dL (8-26); Calcium 8.7 mg/dL (8.6-10.8); Calcium 8.9 mg/dL (8.6-10.8); Carbon Dioxide 25 mEq/L (19-29); Carbon Dioxide 26 mEq/L (19-29); Chloride 109 mEq/L (98-109); Globulin 4.4 g/dL (2.4-3.5); Glucose 43 mg/dL (70-99); Osmolality,Calculated 296 (280-300); Sodium 145 mEq/L (136-145); Total Protein 6.8 g/dL (6.0-8.3); eGFR For African Americans > 60 (> 60); eGFR For Non-African Americans > 60 (> 60)
[2017-06-24] MEDS: Insulin LISPRO 300 UNITS/3 ML VIAL SQ SCH ×7 (08:29→20:21)
[2017-06-24 08:32] LABS: Eosinophils # 0.4 K/mcL (0.0-0.6); Lymphocytes # 5.7 K/mcL (0.6-4.6); Monocytes # 3.4 K/mcL (0.0-1.3); Neutrophils # 28.2 K/mcL (1.6-8.9); Platelet Estimate Normal (Normal); Reactive Lymphocytes Present (Not Present)
[2017-06-24] MEDS: 0.9 % Sodium Chloride 1,000 ML IVC SCH (08:33)
[2017-06-24] MEDS: Insulin DETEMIR 100 UNIT/ML X5UNITS SQ SCH (08:33)
[2017-06-24] MEDS: Aspirin 81 MG TAB.CHEW PO SCH (08:34)
[2017-06-24] MEDS: Colchicine 0.6 MG TABLET PO SCH (08:34)
[2017-06-24] MEDS: Ranolazine 500 MG TAB.ER.12H PO SCH ×2 (08:34→20:51)
[2017-06-24] MEDS: predniSONE 20 MG TABLET PO SCH (08:34)
[2017-06-24] MEDS ORDERED: Insulin DETEMIR 100 UNIT/ML X5UNITS SQ SCH (09:15)
--- NOTE | 2017-06-24 10:22 | Pulmonology Consult Note ---
Date of Encounter: 06/24/17 Time of Encounter: 10:00 Assessment and Plan (1) MRSA (methicillin resistant Staphylococcus aureus) infection Current Visit: Yes Status: Acute Patient has been diagnosed with MRSA bacteremia and I suspect reviewing his CT chest this is all related and possible septic emboli. Patient is on appropriate treatment and his vancomycin level needs to be therapeutic. His follow-up cultures has been negative, however FREIDA would be appropriate to make sure there is no underlying cardiac source for his warts looks like septic emboli. This was discussed with primary team and thank you very much for the consultation. (2) MRSA bacteremia Current Visit: Yes Status: Acute (3) COPD (chronic obstructive pulmonary disease) Current Visit: No Status: Suspected I do not feel strongly this patient has COPD exacerbation and specially with his uncontrolled diabetes recommend to stop systemic steroid and continue bronchodilators and outpatient follow-up. Qualifiers: COPD type: chronic bronchitis Chronic bronchitis type: simple Qualified Code(s): J41.0 - Simple chronic bronchitis (4) Septic pulmonary embolism Current Visit: Yes Status: Acute As I explained under MRSA infection Qualifiers: Chronicity: unspecified Acute cor pulmonale presence: without acute cor pulmonale Qualified Code(s): I26.90 - Septic pulmonary embolism without acute cor pulmonale (5) GOLDEN (obstructive sleep apnea) Current Visit: Yes Status: Chronic Patient is not compliant with his treatment and on his discharge he may follow- up as outpatient. History of Present Illness Consult date: 06/24/17 Requesting physician: Apolinar Cabrera Reason for consult: pneumonia Chief complaint: Cough and chills History of present illness: This is a pleasant 56-year-old male who was admitted to the hospital for pneumonia and he was transferred from [facility] emergency room. Patient has diagnosis of obstructive sleep apnea and he is not compliant with his CPAP and he does not know his CPAP pressure. Patient denies any smoking and he is being treated for COPD exacerbation, however he was found to have multifocal pneumonia with leukocytosis. Patient stated this morning he started to have more cough and sputum production but denies any hemoptysis or significant wheezing. Patient's environment is not very sanitary and he has history of mice bites. Patient stated he had been having cough and congestion for about 2 weeks prior to this hospitalization. He had some chills and fever and he was started with antibiotics and steroids. Patient denies any chest pain. Past Med Surg Social Fam HX - Past Medical History Medical history: COPD, diabetes, glaucoma, hyperlipidemia, hypertension, myocardial infarction, seizures, other Psychiatric history: depression - Past Surgical History Surgical History: splenectomy, tracheostomy, other - Social History Smoking Status: Former smoker Smokeless Tobacco Status: No Alcohol use: none Drug use: none - Family History Father Living Status: Hx Family Cardiac Disorders: Yes (CAD) Hx Family Cancer: Yes (lung CA) Medications and Allergies Canagliflozin/Metformin HCl [Invokamet 150-1,000 mg Tablet] 1 each PO BID [History] Colchicine [Colcrys] 0.6 mg PO DAILY 04/08/15 [History] DULoxetine [Cymbalta] 60 mg PO DAILY 04/08/15 [History] Nortriptyline HCl 25 mg PO HS 04/08/15 [History] OxyCODONE/APAP 7.5/325 [Percocet 7.5/325] 1 each PO Q8HR 04/08/15 [History] Oxygen 1 each .ROUTE PRN PRN 04/08/15 [History] Pravastatin Sodium [Pravachol] 20 mg PO DAILY 04/08/15 [History] Pregabalin [Lyrica] 300 mg PO BID 04/08/15 [History] SitaGLIPtin [Januvia] 100 mg PO DAILY PRN 04/08/15 [History] Insulin Glargine,Hum.rec.anlog [Lantus Solostar] 80 unit SQ BID 04/09/15 [ History] Insulin LISPRO [HumaLOG] 75 units SQ TIDWM 04/09/15 [History] Albuterol Sulfate [Proair Hfa] 2 puff IH Q4H PRN 05/19/16 [History] Aspirin 81 mg PO DAILY 05/19/16 [History] Docusate Sodium [Dok] 100 mg PO DAILY PRN 05/19/16 [History] Fluticasone/Salmeterol [Advair 250-50 Diskus] 1 puff IH BID 05/19/16 [History] Ipratropium/Albuterol Neb [Duoneb] 3 ml IH Q6HR PRN 05/19/16 [History] Polyethylene Glycol 3350 [MiraLAX] 17 gm PO DAILY PRN 05/19/16 [History] Clopidogrel [Plavix] 75 mg PO DAILY #30 tablet 05/20/16 [Rx] Metoprolol [Lopressor] 25 mg PO BID #60 tablet 05/20/16 [Rx] Nitroglycerin 0.4 mg SL Q5MIN PRN #30 tab.subl 05/20/16 [Rx] Allopurinol [Zyloprim 100 MG] 100 mg PO DAILY 06/21/17 [History] Isosorbide MONOnitrate (24 HR) [Imdur] 30 mg PO DAILY 06/21/17 [History] Ranolazine [Ranexa] 500 mg PO BID 06/21/17 [History] 3 Allergy/AdvReac Type Severity Reaction Status Date / Time No Known Allergies Allergy Verified 06/20/17 20:00 All Systems: A 10-system review of systems was performed and is negative for pertinent findings except as documented above in the HPI. Physical Examination Vital Signs: Vital Signs, Last 4 Hours Temp Pulse Resp BP Pulse Ox 06/24/17 09:39 131/66 06/24/17 08:48 80 06/24/17 08:21 98.8 F 80 17 173/87 96 General appearance: no acute distress Eyes: nonicteric ENT: oropharynx moist Mallampati (class): 4 Neck: supple, no lymphadenopathy Effort: normal Inspection: other (Patient is obese) Auscultation: bilateral: diminished breath sounds Percussion: bilateral: not dull Cardiovascular: regular rate and rhythm Gastrointestinal: normoactive bowel sounds, non-distended Extremities: no cyanosis normal mental status, non-focal exam mood appropriate Results - Laboratory Findings CBC and BMP: 06/24/17 07:31 06/24/17 07:31 ABG ABG pH 7.45 pH Units (7.32-7.45) 06/21/17 12:18 ABG pCO2 38 mmHg (35-45) 06/21/17 12:18 ABG pO2 56 mmHg (85-104) L 06/21/17 12:18 ABG O2 Saturation 90 % (95-98) L 06/21/17 12:18 Abnormal lab findings: Abnormal lab results WBC 38.1 K/mcL (4.3-11.1) H* 06/24/17 07:31 RBC 3.95 M/mcL (4.19-5.50) L 06/24/17 07:31 Hgb 12.6 g/dL (12.9-16.9) L 06/24/17 07:31 Band Neutrophils % 6.0 % (0-4) H 06/24/17 07:31 Metamyelocytes % 1.0 % (0) H 06/24/17 07:31 Neutrophils # 28.2 K/mcL (1.6-8.9) H 06/24/17 07:31 Lymphocytes # 5.7 K/mcL (0.6-4.6) H 06/24/17 07:31 Monocytes # 3.4 K/mcL (0.0-1.3) H 06/24/17 07:31 Nucleated RBCs/100 WBC 0.1 /100 WBC (0) H 06/24/17 07:31 Reactive Lymphocytes Present (Not Present) A 06/24/17 07:31 Dohle Bodies Present (Not Present) A 06/21/17 08:03 Clumped Platelets Few (Not Present) A 06/21/17 08:03 ABG pO2 56 mmHg (85-104) L 06/21/17 12:18 ABG Total CO2 27 mEq/L (20-26) H 06/21/17 12:18 ABG O2 Saturation 90 % (95-98) L 06/21/17 12:18 Potassium 3.0 mEq/L (3.5-4.5) L 06/24/17 07:31 Creatinine 0.55 mg/dL (0.72-1.25) L 06/24/17 07:31 Glucose 43 mg/dL (70-99) L 06/24/17 07:31 POC Glucose 139 (58-89) H 06/23/17 16:44 Albumin 2.4 g/dL (3.5-5.0) L 06/24/17 07:31 Globulin 4.4 g/dL (2.4-3.5) H 06/24/17 07:31 Albumin/Globulin Ratio 0.5 (1.1-2.2) L 06/24/17 07:31 Ur Specific Jamison > 1.030 (1.010-1.025) H 06/21/17 12:35 Urine Protein 30 mg/dL (Neg-Trace) H 06/21/17 12:35 Urine Glucose (UA) >=1000 mg/dL (Normal) H 06/21/17 12:35 Urine Ketones Trace mg/dL (Negative) H 06/21/17 12:35 Vancomycin Trough 7.3 mcg/mL (10-20) L 06/22/17 20:34 - Microbiology Findings Microbiology Findings: Microbiology, Last 48 Hours 06/22/17 13:24 Blood Culture - Preliminary Peripheral Venipuncture No growth. 06/22/17 13:24 Blood Culture - Preliminary Peripheral Venipuncture No growth. 06/21/17 10:40 Blood Culture - Preliminary Peripheral Venipuncture No growth. - Diagnostic Findings CT scan - chest: report reviewed, image reviewed - Clinical Findings Intake & Output: Intake & Output 06/23/17 06/24/17 06/24/17 23:59 07:59 15:59 Intake Total 1570 / 1570 1200 / 1200 800 / 800 Output Total 550 / 550 3200 / 3200 Balance 1020 / 1020 -2000 / -2000 800 / 800 Weight 83.6 kg Consult Discharge Plan - Plan Referrals: Catrachita Hernández, [employer] [Primary Care Provider] - 06/29/17 1:00 pm
--- NOTE | 2017-06-24 11:47 | Internal Med Progress Note ---
<Hola Crystal - Last Filed: 06/24/17 12:02> Date of Encounter: 06/24/17 Time of Encounter: 11:44 - Assessment and plan (1) MRSA bacteremia Current Visit: Yes Status: Acute Assessment and plan: MRSA + Blood cultures - On Vancomycin - Concerning findings on chest CT for septic emboli vs. multifocal pneumonia. FREIDA ordered TTE 06/22/2017: Impressions: LVEF 65%. Normal LV chamber size, wall thickness and function. Moderate left ventricular diastolic dysfunction. Chordal systolic anterior motion. No LVOT obstruction. Normal right ventricular structure and function. Moderate pulmonary hypertension. Estimated RVSP is 52 mmHg. No significant valvular dysfunction. No vegetations visualized. Repeat study or consider FREIDA as clinically indicated. (2) Pneumonia due to gram-positive bacteria Current Visit: Yes Status: Acute Assessment and plan: Admitted and treated for COPD exacerbation plus pneumonia. Blood cultures were obtained growing MRSA. Chest CT described as below concerning for MRSA pneumonia versus septic emboli. - Echocardiogram ordered for evaluation of bowels concern for endocarditis. CT of the chest and abdomen: IMPRESSION: Multiple peripherally located areas of focal airspace consolidation and air bronchograms and both lungs suggesting multifocal pneumonia. In addition, there multiple pulmonary nodules measuring up to 16 x 14 mm in size seen in both lungs as described above. Findings suggest multifocal pneumonia although septic emboli are in the differential. Recommend close interval follow-up to resolution. Multiple borderline sized mediastinal lymph nodes suggesting reactive mediastinal lymphadenopathy. No acute process in the abdomen. Large amount of stool throughout the colon which can be seen with constipation. Plan: - Vancomycin IV may need 6 weeks treatment - Pulmonary following appreciate recommendation - Doxycycline added with atypical pneumonia and recent mice bites. (3) Coronary artery disease Current Visit: No Status: Chronic Assessment and plan: Known hx of CAD - previous echocardiogram as listed above. - Continue to maximize cardiac medications: Diabetic control, daily aspirin, Plavix, simvastatin, Qualifiers: Coronary Disease-Associated Artery/Lesion type: kaw artery [place] vs. transplanted heart: kaw heart Associated angina: without angina Qualified Code(s): I25.10 - Atherosclerotic heart disease of kaw coronary artery without angina pectoris (4) DM2 (diabetes mellitus, type 2) Current Visit: Yes Status: Acute Assessment and plan: Known type II diabetic, currently glucose is 60 plan: - Continue current dose N - Before meals at bedtime glucose checks - Low dose inpatient sliding scale. Qualifiers: Diabetes mellitus complication status: without complication Diabetes mellitus ground layer insulin use: with ground layer use Qualified Code(s): E11.9 - Type 2 diabetes mellitus without complications; Z79.4 - senior living (current) use of insulin; Z79.4 - senior living (current) use of insulin; Z79.4 - senior living ( current) use of insulin; Z79.4 - vibration technician (current) use of insulin (5) HTN (hypertension), benign Current Visit: Yes Status: Acute Assessment and plan: Persistently elevated leukocytosis, likely steroids are contributing Bactermia noted on Clood culture, will repeat cultures. Will change antibiotics to Zosyn and continue Vanc. Will consult ID for recommendations. Will order a Echo to rule out vegetation. continue steroids and nebs, will decrease Prednisone to 40mg. continue Accucheck with insulin coverage. DVT prophylaxis. (6) Leukocytosis Current Visit: Yes Status: Acute Assessment and plan: WBC 38 elevated from yesterday, likely secondary to MRSA bacteremia, and suspected MRSA pneumonia. Can not rule out lymphoma or leukemia - Patient on vancomycin, continue to monitor daily. - Peripheral smear ordered. Qualifiers: Leukocytosis type: unspecified Qualified Code(s): D72.829 - Elevated white blood cell count, unspecified (7) DVT prophylaxis Current Visit: Yes Status: Acute Assessment and plan: SQ Heparin q8hrs. - Subjective Interval history: Mr. Ibanez has been seen and evaluated patient bedside this morning. He denies any fevers, chills, sweating, shortness of breath, chest pain or palpitations, abdominal pain nausea vomiting diarrhea. Denies any acute changes or events over night. He is moving bowels, eating, and voiding appropriately. He met with the restaurant maintenance technician this morning and understands the recommendations. He agrees to a FREIDA for evaluation of his cardiac valves and possible endocarditis. - Constitutional Vitals: Temp Pulse Resp BP Pulse Ox 98.8 F 80 17 131/66 96 06/24/17 08:21 06/24/17 08:48 06/24/17 08:21 06/24/17 09:39 06/24/17 08:21 General appearance: Present: A&O X 3 - Head Head exam: Present: atraumatic, normocephalic - Eye Eye exam: Present: PERRL, conjuntiva pink, sclera anicteric Pupils: Present: PERRL - Neck Neck exam general surgery: Present: supple, trachea midline. Absent: lymphadenopathy - Respiratory Respiratory exam: Present: CTAB. Absent: accessory muscle use, rales, rhonchi, wheezes - Cardiovascular Cardiovascular exam: Present: RRR, +S1, +S2. Absent: diastolic murmur, gallop, rubs, systolic murmur - GI/Abdominal GI/Abdominal exam: Present: normal bowel sounds, soft, no peritoneal signs. Absent: distended, tenderness - Extremities Exam Extremities exam: Present: warm, radial pulses palpable and symmetrical. Absent : calf tenderness, cyanotic, pedal edema - Neurological Exam Neurological exam: Present: CN II-XII intact, oriented X3, no focal deficits. Absent: pronater drift, facial droop, speech deficit - Skin Skin exam: Present: dry, intact Internal Medicine: Result - Labs CBC & Chem 7: 06/24/17 07:31 06/24/17 07:31 Labs: Short CBC 06/24/17 Range/Units 07:31 WBC 38.1 H* (4.3-11.1) K/mcL Hgb 12.6 L (12.9-16.9) g/dL Hct 38.0 (37.5-50.1) % Plt Count 368 (140-400) K/mcL Neutrophils # 28.2 H (1.6-8.9) K/mcL BMP 06/24/17 06/24/17 07:31 07:31 Sodium 145 145 Potassium 3.0 L 3.0 L Chloride 109 109 Carbon Dioxide 26 25 BUN 11 11 Creatinine 0.55 L 0.54 L Glucose 43 L 43 L Calcium 8.7 8.9 Liver Function 06/24/17 Range/Units 07:31 Total Bilirubin 0.2 (0.2-1.2) mg/dL AST 15 (5-34) Units/L ALT 14 (0-55) Units/L Alkaline Phosphatase 76 (38-126) Units/L Albumin 2.4 L (3.5-5.0) g/dL - ABG Interpretation ABG results: ABG ABG pH 7.45 pH Units (7.32-7.45) 06/21/17 12:18 ABG pCO2 38 mmHg (35-45) 12/14/17 12:18 ABG pO2 56 mmHg (85-104) L 06/21/17 12:18 ABG O2 Saturation 90 % (95-98) L 06/21/17 12:18 - Impressions Impressions Echocardiogram 06/22/17 13:18 Impressions: LVEF 65%. Normal LV chamber size, wall thickness and function. Moderate left ventricular diastolic dysfunction. Chordal systolic anterior motion. No LVOT obstruction. Normal right ventricular structure and function. Moderate pulmonary hypertension. Estimated RVSP is 52 mmHg. No significant valvular dysfunction. No vegetations visualized. Repeat study or consider FREIDA as clinically indicated. Left Ventricular Wall Motion: Rest Echo Findings All wall segments showed normal motion. Findings: Study Quality * Technically adequate exam. ECG Findings * Normal sinus rhythm. Left Ventricle * LVEF 65%. * Normal LV chamber size, wall thickness and function. * Moderate left ventricular diastolic dysfunction. * Chordal systolic anterior motion. No LVOT obstruction. Right Ventricle * Normal right ventricular structure and function. Left Atrium * Moderately dilated left atrium. Right Atrium * Normal right atrial size. Aortic Valve * Trileaflet aortic valve. * Mildly calcified left coronary cusp. * No aortic regurgitation. * No aortic stenosis. Mitral Valve * Normal mitral valve structure. * Trace mitral regurgitation. * No mitral stenosis. Tricuspid Valve * Normal tricuspid valve structure and function. * Trace tricuspid regurgitation. * Moderate pulmonary hypertension. * Estimated RVSP is 52 mmHg. Pulmonic Valve * Pulmonic valve is not well visualized. Aorta * Normally sized aortic root. Pericardium * The pericardium appears normal. IVC * Normal IVC dimensions and inspiratory collapse. Pulmonary Artery * Normal visualized portions of the main pulmonary artery. Abdomen CT 06/23/17 12:00 IMPRESSION: Multiple peripherally located areas of focal airspace consolidation and air bronchograms and both lungs suggesting multifocal pneumonia. In addition, there are multiple pulmonary nodules measuring up to 16 x 14 mm in size seen in both lungs as described above. Findings suggest multifocal pneumonia although septic emboli are in the differential. Recommend close interval follow-up to resolution. Multiple borderline sized mediastinal lymph nodes suggesting reactive mediastinal lymphadenopathy. No acute process in the abdomen. Large amount of stool throughout the colon which can be seen with constipation. D/ / 06/23/2017 14:07:31 Isaias Tineo MD / [place] Interpreting Provider: Isaias Tineo MD Chest CT 06/23/17 12:00 IMPRESSION: Multiple peripherally located areas of focal airspace consolidation and air bronchograms and both lungs suggesting multifocal pneumonia. In addition, there are multiple pulmonary nodules measuring up to 16 x 14 mm in size seen in both lungs as described above. Findings suggest multifocal pneumonia although septic emboli are in the differential. Recommend close interval follow-up to resolution. Multiple borderline sized mediastinal lymph nodes suggesting reactive mediastinal lymphadenopathy. No acute process in the abdomen. Large amount of stool throughout the colon which can be seen with constipation. D/ / 06/23/2017 14:07:31 Isaias Tineo MD / [place] Interpreting Provider: Isaias Tineo MD Consult Discharge Plan - Plan Referrals: Catrachita Hernández CNP [Primary Care Provider] - 06/29/17 1:00 pm <Apolinar Cabrera - Last Filed: 06/24/17 16:40> Date of Encounter: 06/24/17 - Assessment and plan (1) MRSA (methicillin resistant Staphylococcus aureus) infection Current Visit: Yes Status: Acute (2) MRSA bacteremia Current Visit: Yes Status: Acute (3) MRSA pneumonia Current Visit: Yes Status: Suspected Qualifiers: Laterality: bilateral Lung location: lower lobe of lung Qualified Code(s) : J15.212 - Pneumonia due to Methicillin resistant Staphylococcus aureus (4) DKA (diabetic ketoacidoses) Current Visit: Yes Status: Resolved Qualifiers: Diabetes mellitus type: type 2 Diabetes mellitus complication detail: without coma Qualified Code(s): E11.10 - Type 2 diabetes mellitus with ketoacidosis without coma (5) HTN (hypertension), benign Current Visit: Yes Status: Acute (6) COPD (chronic obstructive pulmonary disease) Current Visit: No Status: Suspected Qualifiers: COPD type: chronic bronchitis Chronic bronchitis type: simple Qualified Code(s): J41.0 - Simple chronic bronchitis (7) Coronary artery disease Current Visit: No Status: Chronic Qualifiers: Coronary Disease-Associated Artery/Lesion type: [place] artery [place] vs. 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, sequela Current Visit: Yes Status: Chronic - Constitutional Vitals: Temp Pulse Resp BP Pulse Ox 98.7 F 82 18 142/82 94 06/24/17 11:42 06/24/17 11:50 06/24/17 11:42 06/24/17 11:42 06/24/17 11:42 Internal Medicine: Result - Labs CBC & Chem 7: 06/24/17 07:31 06/24/17 07:31 Labs: Short CBC 06/24/17 Range/Units 07:31 WBC 38.1 H* (4.3-11.1) K/mcL Hgb 12.6 L (12.9-16.9) g/dL Hct 38.0 (37.5-50.1) % Plt Count 368 (140-400) K/mcL Neutrophils # 28.2 H (1.6-8.9) K/mcL BMP 06/24/17 06/24/17 07:31 07:31 Sodium 145 145 Potassium 3.0 L 3.0 L Chloride 109 109 Carbon Dioxide 26 25 BUN 11 11 Creatinine 0.55 L 0.54 L Glucose 43 L 43 L Calcium 8.7 8.9 Liver Function 06/24/17 Range/Units 07:31 Total Bilirubin 0.2 (0.2-1.2) mg/dL AST 15 (5-34) Units/L ALT 14 (0-55) Units/L Alkaline Phosphatase 76 (38-126) Units/L Albumin 2.4 L (3.5-5.0) g/dL - ABG Interpretation ABG results: ABG ABG pH 7.45 pH Units (7.32-7.45) 06/21/17 12:18 ABG pCO2 38 mmHg (35-45) 06/21/17 12:18 ABG pO2 56 mmHg (85-104) L 06/21/17 12:18 ABG O2 Saturation 90 % (95-98) L 06/21/17 12:18 - Impressions Impressions Echocardiogram 06/22/17 13:18 Impressions: LVEF 65%. Normal LV chamber size, wall thickness and function. Moderate left ventricular diastolic dysfunction. Chordal systolic anterior motion. No LVOT obstruction. Normal right ventricular structure and function. Moderate pulmonary hypertension. Estimated RVSP is 52 mmHg. No significant valvular dysfunction. No vegetations visualized. Repeat study or consider FREIDA as clinically indicated. Left Ventricular Wall Motion: Rest Echo Findings All wall segments showed normal motion. Findings: Study Quality * Technically adequate exam. ECG Findings * Normal sinus rhythm. Left Ventricle * LVEF 65%. * Normal LV chamber size, wall thickness and function. * Moderate left ventricular diastolic dysfunction. * Chordal systolic anterior motion. No LVOT obstruction. Right Ventricle * Normal right ventricular structure and function. Left Atrium * Moderately dilated left atrium. Right Atrium * Normal right atrial size. Aortic Valve * Trileaflet aortic valve. * Mildly calcified left coronary cusp. * No aortic regurgitation. * No aortic stenosis. Mitral Valve * Normal mitral valve structure. * Trace mitral regurgitation. * No mitral stenosis. Tricuspid Valve * Normal tricuspid valve structure and function. * Trace tricuspid regurgitation. * Moderate pulmonary hypertension. * Estimated RVSP is 52 mmHg. Pulmonic Valve * Pulmonic valve is not well visualized. Aorta * Normally sized aortic root. Pericardium * The pericardium appears normal. IVC * Normal IVC dimensions and inspiratory collapse. Pulmonary Artery * Normal visualized portions of the main pulmonary artery. Abdomen CT 06/23/17 12:00 IMPRESSION: Multiple peripherally located areas of focal airspace consolidation and air bronchograms and both lungs suggesting multifocal pneumonia. In addition, there are multiple pulmonary nodules measuring up to 16 x 14 mm in size seen in both lungs as described above. Findings suggest multifocal pneumonia although septic emboli are in the differential. Recommend close interval follow-up to resolution. Multiple borderline sized mediastinal lymph nodes suggesting reactive mediastinal lymphadenopathy. No acute process in the abdomen. Large amount of stool throughout the colon which can be seen with constipation. D/ 06/23/2017 14:07:31 Isaias Tineo MD / [place] Interpreting Provider: Isaias Tineo MD Chest CT 06/23/17 12:00 IMPRESSION: Multiple peripherally located areas of focal airspace consolidation and air bronchograms and both lungs suggesting multifocal pneumonia. In addition, there are multiple pulmonary nodules measuring up to 16 x 14 mm in size seen in both lungs as described above. Findings suggest multifocal pneumonia although septic emboli are in the differential. Recommend close interval follow-up to resolution. Multiple borderline sized mediastinal lymph nodes suggesting reactive mediastinal lymphadenopathy. No acute process in the abdomen. Large amount of stool throughout the colon which can be seen with constipation. D/ / 06/23/2017 14:07:31 Isaias Tineo MD / [place] Interpreting Provider: Isaias Tineo MD - Attending Attestation I examined this patient and my medical decision-making was reviewed with the Resident Physician on 06/24/17. I agree with the documented findings, disposition and treatment plan as described except to the extent set forth below. Mr Ibanez is currently admitted for acute MRSA bacteremia and concern for septic pulmonary emboli. His DKA has resolved. He remains moderate to high risk due to potential for worsening clinical status. Mr Ibanez is resting in bed. No CP or SOB at this time. No fever or chills. WBC remains markedly elevated. Denies abd pain or GI issues. Tolerating IV abx. Exam Alert. Comfortable resting in bed. Mucus membranes dry Heart reg Scattered rhonchi and crackles Abd soft I/P 1. MRSA bacteremia - on IV Vanc 2. Mouse bites - Doxycycline added 3. FREIDA ordered due to concern for septic pulmonary emboli Further diagnoses and plan as above.
[2017-06-24] MEDS ORDERED: Doxycycline 100 MG in 0.9 % Sodium Chloride Mini Bag 100 ML IVPB SCH ×2 (12:00→18:00)
[2017-06-24] MEDS: *HR* OxyCODONE/APAP 7.5/325 TABLET PO PRN (20:51)
[2017-06-24] MEDS: Doxycycline 100 MG in 0.9 % Sodium Chloride Mini Bag 100 ML IVPB SCH (23:43)
[2017-06-25] MEDS: *HR* Dextrose 50 % in Water (Syg) 50 ML SYRINGE IVP PRN ×4 (03:52→08:03)
[2017-06-25] MEDS ORDERED: D5% in 0.9% NACL 1,000 ML IVC ONE (04:52)
[2017-06-25] MEDS: Ipratropium/Albuterol Neb 3 ML IH SCH ×6 (04:55→23:16)
[2017-06-25] MEDS: *HR* Heparin 5,000 UNIT/ML VIAL SQ SCH ×2 (05:07→17:33)
[2017-06-25] MEDS: *HR* OxyCODONE/APAP 7.5/325 TABLET PO PRN ×2 (05:10→15:03)
[2017-06-25 05:59] LABS: Basophils % 0.2 %; Eosinophils % 0.3 %; Nucleated Red Blood Cells 0.1 /100 WBC (0)
[2017-06-25 06:01] LABS: Basophils # 0.1 K/mcL (0.0-0.2); Eosinophils # 0.1 K/mcL (0.0-0.6); Hematocrit 37.7 % (37.5-50.1); Hemoglobin 12.7 g/dL (12.9-16.9); Immature Granulocytes % 4.2 % (0-4); Lymphocytes # 5.5 K/mcL (0.6-4.6); Lymphocytes % 19.7 %; Mean Corpuscular HGB Conc 33.7 g/dL (31.6-35.5); Mean Corpuscular Hemoglobin 32.2 pg (28.0-33.3); Mean Corpuscular Volume 95.7 fL (83.0-100.0); Mean Platelet Volume 9.9 fL (9.4-12.4); Monocytes # 3.5 K/mcL (0.0-1.3); Monocytes % 12.5 %; Platelet Count 386 K/mcL (140-400); Red Blood Count 3.94 M/mcL (4.19-5.50); Red Cell Distribution Width 13.6 % (11.5-14.5); Segmented Neutrophils % 63.1 %
[2017-06-25 06:15] LABS: Neutrophils # 17.7 K/mcL (1.6-8.9)
[2017-06-25 06:19] LABS: Alanine Aminotransferase 15 Units/L (0-55); Albumin 2.2 g/dL (3.5-5.0); Albumin/Globulin Ratio 0.5 (1.1-2.2); Alkaline Phosphatase 70 Units/L (38-126); Aspartate Amino Transferase 17 Units/L (5-34); BUN/Creatinine Ratio 21 (6-26); Bilirubin,Total 0.2 mg/dL (0.2-1.2); Blood Urea Nitrogen 12 mg/dL (8-26); Calcium 8.8 mg/dL (8.6-10.8); Carbon Dioxide 27 mEq/L (19-29); Chloride 106 mEq/L (98-109); Globulin 4.3 g/dL (2.4-3.5); Glucose 81 mg/dL (70-99); Osmolality,Calculated 291 (280-300); Potassium 3.8 mEq/L (3.5-4.5); Sodium 141 mEq/L (136-145); Total Protein 6.5 g/dL (6.0-8.3); eGFR For African Americans > 60 (> 60); eGFR For Non-African Americans > 60 (> 60)
[2017-06-25 06:41] LABS: Large Platelets Present (Not Present); Platelet Estimate Normal (Normal); Reactive Lymphocytes Present (Not Present)
[2017-06-25] MEDS ORDERED: Vancomycin 1,250 MG in D5% in Water 250 ML IVPB SCH ×2 (07:00→10:00)
[2017-06-25 07:41] LABS: Mycoplasma pneumoniae IgG 2.24 U/L (<=0.09)
[2017-06-25] MEDS: Aspirin 81 MG TAB.CHEW PO SCH (08:01)
[2017-06-25] MEDS: Insulin LISPRO 300 UNITS/3 ML VIAL SQ SCH ×6 (08:02→20:12)
[2017-06-25] MEDS: Ranolazine 500 MG TAB.ER.12H PO SCH ×2 (08:02→20:10)
[2017-06-25] MEDS: Colchicine 0.6 MG TABLET PO SCH (08:02)
--- NOTE | 2017-06-25 08:21 | Pulmonology Progress Note ---
Date of Encounter: 06/25/17 Time of Encounter: 08:00 Assessment and Plan (1) MRSA (methicillin resistant Staphylococcus aureus) infection Current Visit: Yes Status: Acute Patient had MRSA bactremia with septic embolic and multilobar pneumonia classical for hematogenous spread now the blood cultures x 2 negative , with FREIDA negative for any vegetations , to get MRI of spine according to primary team . Patient repeated mice bite in his skin that can be potential source . Will need terminal press operator antibiotics due to multifocal MRSA pneumonia. septic emboli (2) Septic embolism Current Visit: Yes Status: Acute Patient has multiple pulmonary septic emboli most likely due ot MRSA bactremia FREIDA is negative , will need atleast 3 weeks of antibiotics MRSA bactremia with pneumonia IV Vancomycin will be the choice . Will consult ID for half-way antibiotics . To keep Vancomycin therapeutic adjusting the dose . (3) COPD (chronic obstructive pulmonary disease) Current Visit: No Status: Chronic To continue bronchodilators Qualifiers: COPD type: chronic bronchitis Chronic bronchitis type: simple Qualified Code(s): J41.0 - Simple chronic bronchitis (4) GOLDEN (obstructive sleep apnea) Current Visit: Yes Status: Acute asked him to bring the home machine to be used here in the night , patient is motivated to use . Subjective Principal diagnosis: MRSA bactremia Interval history: 56 year old male with MRSA bactremia and septic emboli now on IV antibiotics he is feeling lot better , denies any cough or sputum production has some left sided chest pain , denies any fever or chills Objective PUL Vital signs: Last Vital Signs Temp 98.1 F 06/25/17 07:49 Pulse 74 06/25/17 07:49 Resp 16 06/25/17 07:49 BP 132/84 06/25/17 07:49 Pulse Ox 92 06/25/17 07:49 Auscultation: bilateral: diminished breath sounds Results - Laboratory Findings CBC and BMP: 06/25/17 05:26 06/25/17 05:26 ABG ABG pH 7.45 pH Units (7.32-7.45) 06/21/17 12:18 ABG pCO2 38 mmHg (35-45) 06/21/17 12:18 ABG pO2 56 mmHg (85-104) L 06/21/17 12:18 ABG O2 Saturation 90 % (95-98) L 06/21/17 12:18 Abnormal lab findings: Abnormal lab results WBC 28.1 K/mcL (4.3-11.1) H 06/25/17 05:26 RBC 3.94 M/mcL (4.19-5.50) L 06/25/17 05:26 Hgb 12.7 g/dL (12.9-16.9) L 06/25/17 05:26 Immature Gran % 4.2 % (0-4) H 06/25/17 05:26 Band Neutrophils % 6.0 % (0-4) H 06/24/17 07:31 Metamyelocytes % 1.0 % (0) H 06/24/17 07:31 Neutrophils # 17.7 K/mcL (1.6-8.9) H 06/25/17 05:26 Lymphocytes # 5.5 K/mcL (0.6-4.6) H 06/25/17 05:26 Monocytes # 3.5 K/mcL (0.0-1.3) H 06/25/17 05:26 Nucleated RBCs/100 WBC 0.1 /100 WBC (0) H 06/25/17 05:26 Reactive Lymphocytes Present (Not Present) A 06/25/17 05:26 Dohle Bodies Present (Not Present) A 06/21/17 08:03 Clumped Platelets Few (Not Present) A 06/21/17 08:03 Large Platelets Present (Not Present) A 06/25/17 05:26 ABG pO2 56 mmHg (85-104) L 06/21/17 12:18 ABG Total CO2 27 mEq/L (20-26) H 06/21/17 12:18 ABG O2 Saturation 90 % (95-98) L 06/21/17 12:18 Creatinine 0.57 mg/dL (0.72-1.25) L 06/25/17 05:26 POC Glucose 48 (58-89) L* 06/25/17 07:46 Albumin 2.2 g/dL (3.5-5.0) L 06/25/17 05:26 Globulin 4.3 g/dL (2.4-3.5) H 06/25/17 05:26 Albumin/Globulin Ratio 0.5 (1.1-2.2) L 06/25/17 05:26 Ur Specific [place] > 1.030 (1.010-1.025) H 06/21/17 12:35 Urine Protein 30 mg/dL (Neg-Trace) H 06/21/17 12:35 Urine Glucose (UA) >=1000 mg/dL (Normal) H 06/21/17 12:35 Urine Ketones Trace mg/dL (Negative) H 06/21/17 12:35 Vancomycin Trough 8.6 mcg/mL (10-20) L 06/25/17 05:26 Mycoplasma pneumon IgG 2.24 U/L (<=0.09) H 06/22/17 03:47 - Microbiology Findings Microbiology Findings: Microbiology, Last 48 Hours 06/22/17 13:24 Blood Culture - Preliminary Peripheral Venipuncture No growth. 06/22/17 13:24 Blood Culture - Preliminary Peripheral Venipuncture No growth. 06/21/17 10:40 Blood Culture - Preliminary Peripheral Venipuncture No growth. - Clinical Findings Intake & Output: Intake & Output 06/24/17 06/25/17 06/25/17 23:59 07:59 15:59 Intake Total 1090 / 1090 100 / 100 Output Total 2900 / 2900 400 / 400 Balance -1810 / -1810 -300 / -300 Weight 85.1 kg Consult Discharge Plan - Plan Referrals: Catrachita Hernández CNP [Primary Care Provider] - 06/29/17 1:00 pm
[2017-06-25] MEDS ORDERED: *HR* Midazolam HCl 5 MG/5 ML VIAL IVP PRN (08:27)
[2017-06-25] MEDS ORDERED: *HR* FentaNYL (PF) 100 MCG/2 ML VIAL IVP PRN (08:27)
[2017-06-25] MEDS ORDERED: Lidocaine Viscous Oral Soln 15 ML SOLUTION MM PRN (08:27)
[2017-06-25] MEDS ORDERED: Tetracaine/Benzocaine/Butamben 200MG/SPRAY (100SPY/BOT) MM ONE (08:27)
[2017-06-25] MEDS ORDERED: 0.9 % Sodium Chloride 500 ML IVC ONE (08:27)
--- NOTE | 2017-06-25 11:04 | Internal Med Progress Note ---
<Sinan Moss - Last Filed: 06/25/17 13:14> Date of Encounter: 06/25/17 Time of Encounter: 11:03 - Assessment and plan (1) MRSA bacteremia Current Visit: Yes Status: Acute Assessment and plan: Initial cultures positive for MRSA 2/2, but repeat cultures remain negative FREIDA today did not reveal vegetations Continue with Vanc and Doxycycline as source may be from rat bites White count did decrease from 38 to 28 today Awaiting ID recommendations (2) Multifocal pneumonia Current Visit: Yes Status: Acute Assessment and plan: CT chest initially showed bilateral opacities with initial concerns for septic emboli, but FREIDA was negative Source of multifocal infiltrates possibly contributed by mouse bites, as patient 's white count did respond to Doxycycline Pulmonology is consulted, appreciate recs as he may benefit from bronchoscopy Continue with Vanc and Doxy as above (3) COPD (chronic obstructive pulmonary disease) Current Visit: No Status: Chronic Assessment and plan: Pulmonology consulted and felt symptoms were more due to PNA rather than COPD exacerbation Not currently on steroids, but will continue supplemental oxygen and breathing treatments Qualifiers: COPD type: chronic bronchitis Chronic bronchitis type: simple Qualified Code(s): J41.0 - Simple chronic bronchitis (4) Hypertension Current Visit: No Status: Chronic Assessment and plan: Blood pressures well controlled Restarting home BB Qualifiers: Hypertension type: essential hypertension Qualified Code(s): I10 - Essential (primary) hypertension (5) Coronary artery disease Current Visit: No Status: Chronic Assessment and plan: Not currently in any chest pain Continue home ASA, plavix, BB, Statin Qualifiers: Coronary Disease-Associated Artery/Lesion type: [place] artery [place] vs. transplanted heart: [place] heart Associated angina: without angina Qualified Code(s): I25.10 - Atherosclerotic heart disease of [place] coronary artery without angina pectoris (6) DM2 (diabetes mellitus, type 2) Current Visit: Yes Status: Chronic Assessment and plan: Patient has been hypoglycemic as his sugars in 30's Will decrease basal dose from 40 to 20 BID and stop preprandial insulin boluses but continue low dose SSI ACHS accuchecks Qualifiers: Diabetes mellitus complication status: without complication Diabetes mellitus nursing home insulin use: with watermelon inspector use Qualified Code(s): E11.9 - Type 2 diabetes mellitus without complications; Z79.4 - technician terminal and repeater (current) use of insulin; Z79.4 - halfway (current) use of insulin; Z79.4 - halfway ( current) use of insulin; Z79.4 - halfway (current) use of insulin (7) 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 He just returned from his FREIDA and tolerated the procedure well. He complains of chronic head, neck and back pain but otherwise has no issues with breathing as he is on his home dose of 2 L for COPD. Denies fever, nausea, vomiting, diarrhea, constipation. - Constitutional Vitals: Temp Pulse Resp BP Pulse Ox 97.8 F 73 20 124/72 93 06/25/17 08:50 06/25/17 08:50 06/25/17 08:50 06/25/17 08:50 06/25/17 08:50 General appearance: Present: cooperative, A&O X 3, pleasant, no acute distress, answers questions appropriately - Head Head exam: Present: atraumatic, normocephalic - Eye Eye exam: Present: PERRL, conjuntiva pink, sclera anicteric - Neck Neck exam general surgery: Present: supple, trachea midline. Absent: lymphadenopathy - Respiratory Respiratory exam: Present: CTAB. Absent: accessory muscle use, rales, rhonchi, wheezes - Cardiovascular Cardiovascular exam: Present: distant heart sounds, RRR, +S1, +S2. Absent: diastolic murmur, gallop, rubs, systolic murmur - GI/Abdominal GI/Abdominal exam: Present: normal bowel sounds, soft, no peritoneal signs. Absent: distended, tenderness - Extremities Exam Extremities exam: Present: warm, radial pulses palpable and symmetrical. Absent : calf tenderness, cyanotic, pedal edema - Neurological Exam Neurological exam: Present: alert, no focal deficits. Absent: facial droop, speech deficit - Skin Skin exam: Present: dry, intact Internal Medicine: Result - Labs CBC & Chem 7: 06/25/17 05:26 06/25/17 05:26 Labs: Short CBC 06/25/17 Range/Units 05:26 WBC 28.1 H (4.3-11.1) K/mcL Hgb 12.7 L (12.9-16.9) g/dL Hct 37.7 (37.5-50.1) % Plt Count 386 (140-400) K/mcL Neutrophils # 17.7 H (1.6-8.9) K/mcL BMP 06/25/17 05:26 Sodium 141 Potassium 3.8 Chloride 106 Carbon Dioxide 27 BUN 12 Creatinine 0.57 L Glucose 81 Calcium 8.8 Liver Function 06/25/17 Range/Units 05:26 Total Bilirubin 0.2 (0.2-1.2) mg/dL AST 17 (5-34) Units/L ALT 15 (0-55) Units/L Alkaline Phosphatase 70 (38-126) Units/L Albumin 2.2 L (3.5-5.0) g/dL - ABG Interpretation ABG results: ABG ABG pH 7.45 pH Units (7.32-7.45) 06/21/17 12:18 ABG pCO2 38 mmHg (35-45) 06/21/17 12:18 ABG pO2 56 mmHg (85-104) L 06/21/17 12:18 ABG O2 Saturation 90 % (95-98) L 06/21/17 12:18 - Impressions Impressions Abdomen CT 06/23/17 12:00 IMPRESSION: Multiple peripherally located areas of focal airspace consolidation and air bronchograms and both lungs suggesting multifocal pneumonia. In addition, there are multiple pulmonary nodules measuring up to 16 x 14 mm in size seen in both lungs as described above. Findings suggest multifocal pneumonia although septic emboli are in the differential. Recommend close interval follow-up to resolution. Multiple borderline sized mediastinal lymph nodes suggesting reactive mediastinal lymphadenopathy. No acute process in the abdomen. Large amount of stool throughout the colon which can be seen with constipation. D/ 06/23/2017 14:07:31 Isaias Tineo MD / [place] Interpreting Provider: Isaias Tineo MD Chest CT 06/23/17 12:00 IMPRESSION: Multiple peripherally located areas of focal airspace consolidation and air bronchograms and both lungs suggesting multifocal pneumonia. In addition, there are multiple pulmonary nodules measuring up to 16 x 14 mm in size seen in both lungs as described above. Findings suggest multifocal pneumonia although septic emboli are in the differential. Recommend close interval follow-up to resolution. Multiple borderline sized mediastinal lymph nodes suggesting reactive mediastinal lymphadenopathy. No acute process in the abdomen. Large amount of stool throughout the colon which can be seen with constipation. D/ / 06/23/2017 14:07:31 Isaias Tineo MD / [place] Interpreting Provider: Isaias Tineo MD Consult Discharge Plan - Plan Referrals: Catrachita Hernández CNP [Primary Care Provider] - 06/29/17 1:00 pm <Apolinar Cabrera - Last Filed: 06/25/17 13:53> Date of Encounter: 06/25/17 - Assessment and plan (1) MRSA (methicillin resistant Staphylococcus aureus) infection Current Visit: Yes Status: Acute (2) MRSA bacteremia Current Visit: Yes Status: Acute (3) MRSA pneumonia Current Visit: Yes Status: Suspected Qualifiers: Laterality: bilateral Lung location: lower lobe of lung Qualified Code(s) : J15.212 - Pneumonia due to Methicillin resistant Staphylococcus aureus (4) DKA (diabetic ketoacidoses) Current Visit: Yes Status: Resolved Qualifiers: Diabetes mellitus type: type 2 Diabetes mellitus complication detail: without coma Qualified Code(s): E11.10 - Type 2 diabetes mellitus with ketoacidosis without coma (5) HTN (hypertension), benign Current Visit: Yes Status: Acute (6) COPD (chronic obstructive pulmonary disease) Current Visit: No Status: Chronic Qualifiers: COPD type: chronic bronchitis Chronic bronchitis type: simple Qualified Code(s): J41.0 - Simple chronic bronchitis (7) Coronary artery disease Current Visit: No Status: Chronic Qualifiers: Coronary Disease-Associated Artery/Lesion type: [place] artery [place] vs. 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, sequela Current Visit: Yes Status: Chronic - Constitutional Vitals: Temp Pulse Resp BP Pulse Ox 97.9 F 78 19 141/83 93 06/25/17 12:00 06/25/17 12:00 06/25/17 12:00 06/25/17 12:00 06/25/17 12:00 Internal Medicine: Result - Labs CBC & Chem 7: 06/25/17 05:26 06/25/17 05:26 Labs: Short CBC 06/25/17 Range/Units 05:26 WBC 28.1 H (4.3-11.1) K/mcL Hgb 12.7 L (12.9-16.9) g/dL Hct 37.7 (37.5-50.1) % Plt Count 386 (140-400) K/mcL Neutrophils # 17.7 H (1.6-8.9) K/mcL BMP 06/25/17 05:26 Sodium 141 Potassium 3.8 Chloride 106 Carbon Dioxide 27 BUN 12 Creatinine 0.57 L Glucose 81 Calcium 8.8 Liver Function 06/25/17 Range/Units 05:26 Total Bilirubin 0.2 (0.2-1.2) mg/dL AST 17 (5-34) Units/L ALT 15 (0-55) Units/L Alkaline Phosphatase 70 (38-126) Units/L Albumin 2.2 L (3.5-5.0) g/dL - ABG Interpretation ABG results: ABG ABG pH 7.45 pH Units (7.32-7.45) 06/21/17 12:18 ABG pCO2 38 mmHg (35-45) 06/21/17 12:18 ABG pO2 56 mmHg (85-104) L 06/21/17 12:18 ABG O2 Saturation 90 % (95-98) L 06/21/17 12:18 - Impressions Impressions Abdomen CT 06/23/17 12:00 IMPRESSION: Multiple peripherally located areas of focal airspace consolidation and air bronchograms and both lungs suggesting multifocal pneumonia. In addition, there are multiple pulmonary nodules measuring up to 16 x 14 mm in size seen in both lungs as described above. Findings suggest multifocal pneumonia although septic emboli are in the differential. Recommend close interval follow-up to resolution. Multiple borderline sized mediastinal lymph nodes suggesting reactive mediastinal lymphadenopathy. No acute process in the abdomen. Large amount of stool throughout the colon which can be seen with constipation. D/ /23/2017 14:07:31 Isaias Tineo MD / [place] Interpreting Provider: Isaias Tineo MD Chest CT 06/23/17 12:00 IMPRESSION: Multiple peripherally located areas of focal airspace consolidation and air bronchograms and both lungs suggesting multifocal pneumonia. In addition, there are multiple pulmonary nodules measuring up to 16 x 14 mm in size seen in both lungs as described above. Findings suggest multifocal pneumonia although septic emboli are in the differential. Recommend close interval follow-up to resolution. Multiple borderline sized mediastinal lymph nodes suggesting reactive mediastinal lymphadenopathy. No acute process in the abdomen. Large amount of stool throughout the colon which can be seen with constipation. D/ /23/2017 14:07:31 Isaias Tineo MD / [place] Interpreting Provider: Isaias Tineo MD - Attending Attestation I examined this patient and my medical decision-making was reviewed with the Resident Physician on 06/25/17. I agree with the documented findings, disposition and treatment plan as described except to the extent set forth below. Mr Ibanez has been admitted for acute DKA and MRSA bacteremia. He remains moderate to high risk due to potential for worsening clinical status. He had FREIDA today which was negative for endocarditis. Mr Ibanez is up in chair. He denies new issues overnight. No fever or chills. Still coughing. Tolerating IV Vanc at this time. No GI issues. Exam Alert. Comfortable Mucus membranes dry Heart reg Lungs with scattered rhonchi Abd soft No edema I/P 1. MRSA bacteremia 2. Possible MRSA pneumonia 3. Mouse bites Further diagnoses and plan as above.
[2017-06-25] MEDS: Vancomycin 1,250 MG in D5% in Water 250 ML IVPB SCH ×2 (11:17→17:36)
--- NOTE | 2017-06-25 14:01 | Infectious Disease Consult ---
Date of Encounter: 06/25/17 Time of Encounter: 13:59 Assessment and Plan (1) Severe sepsis Status: Acute Assessment and plan: The patient had two SIRS criteria on admission with VANI and lactic acidosis. Likely secondary to bacteremia and PNA. Improved. The patient has been afebrile x 4 days. Leukocytosis is improving. Hypotension has resolved. Blood cultures drawn 06/20/17 were positive 2/2 sets for MRSA. Repeat blood cultures drawn 06/21/17 x 1 set and 06/22/17 x 2 sets are NGTD. (2) Bacteremia Status: Acute Assessment and plan: Causative organism: MRSA. Source unclear, but possibly PNA. He does have a history of mouse bites to his head, but clinically these do not appear infected. Complicated due to septic emboli in the lungs. Blood cultures drawn 06/20/17 were positive 2/2 sets for MRSA. Repeat blood cultures drawn 06/21/17 x 1 set and 06/22/17 x 2 sets are NGTD. No endocarditis stigmata noted on exam, but the patient does have septic emboli. He has one major and one minor Modified Mireles's Criteria. TTE negative for vegetations. Recommend a FREIDA prior to discharge. Continue Vancomycin IV. Pharmacy to dose. Goal trough ~15. Vanc trough this morning 8.6. Will discuss dosing with pharmacy. Discontinue doxycycline. Duration of treatment depends on the clinical picture, but likely 4-6 weeks of IV antibiotics will be required. Monitor renal function and for drug toxicity and dose-adjust antibiotics. business services associate to follow to assist with discharge planning. Apparently, there is concern about the patient's living conditions. He would likely benefit from ECF placement to complete his course of IV antibiotics. Consult VAT for PICC placement in preparation for discharge. (3) Multifocal pneumonia Status: Acute Assessment and plan: Causative organism unclear, but given the blood culture results, concern for MRSA. Get sputum and send for culture if the patient is able to give an adequate specimen. Check S. pneumo and Legionella UAT. Continue antibiotics as above. (4) Septic embolism Status: Acute Assessment and plan: Location: Bilateral Lungs. Secondary to MRSA bacteremia. Pulmonology consulted and following. (5) Back pain Status: Acute Assessment and plan: Location: Thoracic and lumbar spine. Etiology unclear. The patient has chronic back pain, but states it has gotten worse since being in the hospital. Given the patient's markedly elevated WBC, concern for OM/discitis. Get MRI of the T-spine and L-spine. Check ESR and CRP. Continue antibiotics as above. Pain management per the primary team. Qualifiers: Back pain location: low back pain Back pain laterality: midline Sciatica presence: without sciatica Qualified Code(s): M54.5 - Low back pain (6) Hyperglycemia Status: Acute Assessment and plan: Likely secondary to poorly controlled DM and sepsis. Improved. Management per the primary team. (7) Hyponatremia Status: Resolved Assessment and plan: Likely pseudohyponatremia from hyperglycemia. Resolved. (8) Chest pain Status: Acute Assessment and plan: Appears pleuritic. Likely secondary to PNA and septic emboli. Pain management per the primary team. Qualifiers: Chest pain type: unspecified Qualified Code(s): R07.9 - Chest pain, unspecified (9) COPD (chronic obstructive pulmonary disease) Status: Chronic Qualifiers: COPD type: chronic bronchitis Chronic bronchitis type: simple Qualified Code(s): J41.0 - Simple chronic bronchitis (10) Coronary artery disease Status: Chronic Qualifiers: Coronary Disease-Associated Artery/Lesion type: [place] artery [place] vs. transplanted heart: [place] heart Associated angina: without angina Qualified Code(s): I25.10 - Atherosclerotic heart disease of [place] coronary artery without angina pectoris (11) DM2 (diabetes mellitus, type 2) Status: Chronic Assessment and plan: Check HgbA1C. Recommend aggressive glucose monitoring and control. Management per the primary team. Qualifiers: Diabetes mellitus complication status: without complication Diabetes mellitus jail insulin use: with terminologist use Qualified Code(s): E11.9 - Type 2 diabetes mellitus without complications; Z79.4 - long term care pharmacist (current) use of insulin; Z79.4 - long term care pharmacist (current) use of insulin; Z79.4 - [facility] ( current) use of insulin; Z79.4 - [facility] (current) use of insulin (12) GOLDEN (obstructive sleep apnea) Status: Acute Infectious Disease HPI - Data of Consult Patient: new to practice Consult date: 06/25/17 Requesting Physician: Apolinar Cabrera DO Primary Care Provider: Catrachita Hernández CNP - Consult Narrative Reason for consult: MRSA bacteremia History of present illness: Mr. Ibanez is a 56 year old male with a past medical history of COPD, diabetes, glaucoma, hypertension, CA, and CAD with remote history of splenectomy. The patient was admitted to the hospital for for acute exacerbation of COPD, pneumonia, and hyponatremia. We are consulted June 25 for antibiotic recommendations regarding MRSA bacteremia. Aaron, the patient's a 56-year-old male with past medical history as stated above. The patient reports a two-week history of chest tightness, congestion, and cough. He presented to the emergency department after his family called the squad. Upon arrival, the patient was afebrile and hemodynamically stable. He did have a leukocytosis with bandemia and acute kidney injury as well as lactic acidosis. While in the emergency department, the patient developed hypotension that was responsive to IV fluids. A chest x-ray showed findings consistent with possible pulmonary vascular congestion, but based on the clinical picture, there was concern that the patient actually had pneumonia. Blood cultures were obtained 2 sets. Antibiotics were initiated and he was subsequently transferred to our hospital for further evaluation. Since admission, the patient's leukocytosis has improved. He did spike a fever with a MAXIMUM TEMPERATURE of 102.9, he has been afebrile for four days now. Lactic acidosis and acute kidney injury have resolved. Blood cultures obtained in the emergency department came back positive for MRSA 2 out of 2 sets. He had a transthoracic echocardiogram that showed an EF of 65%, but no vegetations. Repeat blood cultures obtained June 21 are no growth to date 1 out of 1 set and June 22 2/2 sets. The patient had a CT the abdomen and pelvis and chest that showed multifocal pneumonia as well as multiple pulmonary nodules concerning for septic emboli. Pulmonology was consulted and do believe the pulmonary nodules are secondary septic emboli. The patient has been on IV vancomycin. Doxycycline was added due to concern about a possible mouse bite. We 've been asked to evaluate and make further recommendations. My exam today, the patient denies any fevers or chills or rigors. He denies any headache or neck pain. He denies any congestion, earache, or sore throat. He reports chest tightness and congestion with pain that radiated into his back that is worse with cough or deep inspiration. He reports a nonproductive moist cough. He denies any nausea, vomiting, diarrhea, constipation. He denies any abdominal pain, urinary complaints, or appetite changes. He states his blood sugars at that home. He does complain of some thoracic and lumbar back pain that is chronic, but states it seems to be worse than normal. He denies any pain in his extremitites. He denies any oral thrush or rashes. He does report scabbed lesions to the top of his head from a mouse bite. The patient lives at home with his niece and her three children. He is disabled due to a back injury and is unable to work. He denies any recent travel. He denies tobacco, alcohol, or illicit drug use. CC: Apolinar Cabrera, DO Past Med Surg Social Fam HX - Past Medical History Attestation: Yes The following information was validated with the patient. Source: patient, old records reviewed, nursing notes reviewed Medical history: COPD, diabetes, glaucoma, hyperlipidemia, hypertension, myocardial infarction, seizures, other Psychiatric history: depression - Past Surgical History Surgical History: splenectomy, tracheostomy, other - Social History Smoking Status: Former smoker Smokeless Tobacco Status: No Alcohol use: none Drug use: none Occupational status: disabled Current living situation: Home, With Family Activity Level: Independent ambulation Recent Out of Country Travel Within the Last 8 Weeks: No Exposure or Possible Exposure to Illness During Travel: No - Family History Father Living Status: Hx Family Cardiac Disorders: Yes (CAD) Hx Family Cancer: Yes (lung CA) Infectious Disease-CN:Meds Canagliflozin/Metformin HCl [Invokamet 150-1,000 mg Tablet] 1 each PO BID [History] Colchicine [Colcrys] 0.6 mg PO DAILY 04/08/15 [History] DULoxetine [Cymbalta] 60 mg PO DAILY 04/08/15 [History] Nortriptyline HCl 25 mg PO HS 04/08/15 [History] OxyCODONE/APAP 7.5/325 [Percocet 7.5/325] 1 each PO Q8HR 04/08/15 [History] Oxygen 1 each .ROUTE PRN PRN 04/08/15 [History] Pravastatin Sodium [Pravachol] 20 mg PO DAILY 04/08/15 [History] Pregabalin [Lyrica] 300 mg PO BID 04/08/15 [History] SitaGLIPtin [Januvia] 100 mg PO DAILY PRN 04/08/15 [History] Insulin Glargine,Hum.rec.anlog [Lantus Solostar] 80 unit SQ BID 04/09/15 [ History] Insulin LISPRO [HumaLOG] 75 units SQ TIDWM 04/09/15 [History] Albuterol Sulfate [Proair Hfa] 2 puff IH Q4H PRN 05/19/16 [History] Aspirin 81 mg PO DAILY 05/19/16 [History] Docusate Sodium [Dok] 100 mg PO DAILY PRN 05/19/16 [History] Fluticasone/Salmeterol [Advair 250-50 Diskus] 1 puff IH BID 05/19/16 [History] Ipratropium/Albuterol Neb [Duoneb] 3 ml IH Q6HR PRN 05/19/16 [History] Polyethylene Glycol 3350 [MiraLAX] 17 gm PO DAILY PRN 05/19/16 [History] Clopidogrel [Plavix] 75 mg PO DAILY #30 tablet 05/20/16 [Rx] Metoprolol [Lopressor] 25 mg PO BID #60 tablet 05/20/16 [Rx] Nitroglycerin 0.4 mg SL Q5MIN PRN #30 tab.subl 05/20/16 [Rx] Allopurinol [Zyloprim 100 MG] 100 mg PO DAILY 06/21/17 [History] Isosorbide MONOnitrate (24 HR) [Imdur] 30 mg PO DAILY 06/21/17 [History] Ranolazine [Ranexa] 500 mg PO BID 06/21/17 [History] 3 Allergy/AdvReac Type Severity Reaction Status Date / Time No Known Allergies Allergy Verified 06/20/17 20:00 All systems: reviewed and no additional remarkable complaints except as stated Exam - Constitutional Vitals: Temp Pulse Resp BP Pulse Ox 97.9 F 78 19 141/83 93 06/25/17 12:00 06/25/17 12:00 06/25/17 12:00 06/25/17 12:00 06/25/17 12:00 General appearance: cooperative, no acute distress, obese - Head Head exam: Present: atraumatic, normal inspection, normocephalic - Eye Eye exam: Present: EOMI, normal appearance, PERRL Pupils: Present: normal accommodation Additional comments: No subconjunctival hemorrhage noted. - ENT ENT exam: Present: mucous membranes moist - Neck Neck exam: Present: normal inspection - Respiratory Respiratory exam: Present: CTAB. Absent: rales, respiratory distress, rhonchi, wheezes - Cardiovascular Cardiovascular exam: Present: RRR, +S1, +S2 - GI/Abdominal GI/Abdominal exam: Present: distended (obese), normal bowel sounds, soft. Absent: tenderness - Extremities Exam Extremities exam: Present: normal inspection. Absent: joint swelling, pedal edema, tenderness - Back Exam Back exam: Present: normal inspection, vertebral tenderness (Thoracic and lumbar spine). Absent: paraspinal tenderness - Neurological Exam Neurological exam: Present: alert, oriented X3, no focal deficits - Psychiatric Psychiatric exam: Present: normal affect, normal mood - Skin Skin exam: Present: dry, intact, normal color, warm Additional comments: No endocarditis stigmata noted. Small, scabbed lesions noted to the top of the head. No erythema, warmth, or drainage noted. Infectious Disease CN: Results - Labs CBC & Chem 7: 06/26/17 05:13 06/26/17 05:13 Cultures: Cultures 06/22/17 13:24 Blood Culture - Preliminary Peripheral Venipuncture No growth. 06/22/17 13:24 Blood Culture - Preliminary Peripheral Venipuncture No growth. 06/21/17 10:40 Blood Culture - Preliminary Peripheral Venipuncture No growth. 06/21/17 12:35 Legionella Antigen - Final Urine,Clean Catch Serology: Serology 06/22/17 06/21/17 Range/Units 03:47 12:35 Urine Color Yellow (Yellow) Urine Clarity Clear (Clear) Urine pH 6.0 (5.0-8.0) pH Units Ur Specific [place] > 1.030 H (1.010-1.025) Urine Protein 30 H (Neg-Trace) mg/dL Urine Glucose (UA) >=1000 H (Normal) mg/dL Urine Ketones Trace H (Negative) mg/dL Urine Blood Negative (Negative) Urine Nitrite Negative (Negative) Urine Bilirubin Negative (Negative) Urine Urobilinogen Normal (Normal) mg/dL Ur Leukocyte Esterase Negative (Negative) Urine Microscopic RBC 0-3 (0-3) per hpf Urine Microscopic WBC 0-3 (0-3) per hpf Ur Squamous Epith Cells Few (None-Few) per lpf Urine Bacteria None Seen (None-Few) per hpf Ur Culture Indicated? NO (NO) Mycoplasma pneumon IgG 2.24 H (<=0.09) U/L Mycoplasma pneumon IgM 0.17 (<=0.76) U/L Consult Discharge Plan - Plan Referrals: Catrachita Hernández, KELLY [Primary Care Provider] - 06/29/17 1:00 pm
[2017-06-25] MEDS: Doxycycline 100 MG in 0.9 % Sodium Chloride Mini Bag 100 ML IVPB SCH ×2 (15:03→20:50)
[2017-06-25] MEDS: Insulin DETEMIR 100 UNIT/ML X5UNITS SQ SCH (20:20)
[2017-06-26] MEDS: Doxycycline 100 MG in 0.9 % Sodium Chloride Mini Bag 100 ML IVPB SCH ×2 (03:30→12:12)
[2017-06-26] MEDS: Ipratropium/Albuterol Neb 3 ML IH SCH ×6 (03:39→22:45)
[2017-06-26] MEDS: Vancomycin 1,250 MG in D5% in Water 250 ML IVPB SCH ×3 (04:44→20:20)
[2017-06-26] MEDS: *HR* Heparin 5,000 UNIT/ML VIAL SQ SCH ×2 (05:27→17:11)
[2017-06-26 05:35] LABS: BUN/Creatinine Ratio 17 (6-26); Blood Urea Nitrogen 10 mg/dL (8-26); Calcium 9.1 mg/dL (8.6-10.8); Carbon Dioxide 28 mEq/L (19-29); Chloride 103 mEq/L (98-109); Glucose 58 mg/dL (70-99); Hematocrit 39.4 % (37.5-50.1); Hemoglobin 12.7 g/dL (12.9-16.9); Mean Corpuscular HGB Conc 32.2 g/dL (31.6-35.5); Mean Corpuscular Hemoglobin 31.3 pg (28.0-33.3); Mean Platelet Volume 9.6 fL (9.4-12.4); Osmolality,Calculated 285 (280-300); Platelet Count 452 K/mcL (140-400); Red Blood Count 4.06 M/mcL (4.19-5.50); Red Cell Distribution Width 13.5 % (11.5-14.5); Sodium 139 mEq/L (136-145); eGFR For African Americans > 60 (> 60); eGFR For Non-African Americans > 60 (> 60)
[2017-06-26 06:16] LABS: Lymphocytes # 5.7 K/mcL (0.6-4.6); Monocytes # 2.4 K/mcL (0.0-1.3); Neutrophils # 15.6 K/mcL (1.6-8.9)
[2017-06-26 06:17] LABS: Reactive Lymphocytes Present (Not Present)
[2017-06-26] MEDS: Insulin LISPRO 300 UNITS/3 ML VIAL SQ SCH ×4 (07:45→20:39)
[2017-06-26] MEDS: Aspirin 81 MG TAB.CHEW PO SCH (08:30)
[2017-06-26] MEDS: Colchicine 0.6 MG TABLET PO SCH (08:30)
[2017-06-26] MEDS: Ranolazine 500 MG TAB.ER.12H PO SCH ×2 (08:30→20:38)
[2017-06-26] MEDS: Insulin DETEMIR 100 UNIT/ML X5UNITS SQ SCH ×2 (08:31→20:39)
--- NOTE | 2017-06-26 09:11 | Internal Med Progress Note ---
<Sinan Moss - Last Filed: 06/26/17 10:26> Date of Encounter: 06/26/17 Time of Encounter: 09:10 - Assessment and plan (1) MRSA bacteremia Current Visit: Yes Status: Acute Assessment and plan: Initial cultures positive for MRSA 2/, but repeat cultures remain negative FREIDA 06/25 did not reveal vegetations Continue with Vanc day 5 and Doxycycline day 3 as source may be from rat bites White count did decrease from 28 to 23 today Awaiting ID recommendations (2) Multifocal pneumonia Current Visit: Yes Status: Acute Assessment and plan: CT chest initially showed bilateral opacities with initial concerns for septic emboli, but FREIDA was negative Source of multifocal infiltrates possibly contributed by mouse bites, as patient 's white count did respond to Doxycycline Pulmonology is consulted, who do not believe he needs urgent bronch at this time Continue with Vanc and Doxy as above (3) COPD (chronic obstructive pulmonary disease) Current Visit: No Status: Chronic Assessment and plan: Pulmonology consulted and felt symptoms were more due to PNA rather than COPD exacerbation Not currently on steroids, but will continue supplemental oxygen and breathing treatments Qualifiers: COPD type: chronic bronchitis Chronic bronchitis type: simple Qualified Code(s): J41.0 - Simple chronic bronchitis (4) Hypertension Current Visit: No Status: Chronic Assessment and plan: Blood pressures well controlled Restarted home BB Qualifiers: Hypertension type: essential hypertension Qualified Code(s): I10 - Essential (primary) hypertension (5) Coronary artery disease Current Visit: No Status: Chronic Assessment and plan: Patient did complain of left sided chest pain but this may be due to pleuritic pain from PNA as it is worse with cough Will obtain EKG and troponin to rule out ACS Continue home ASA, plavix, BB, Statin Qualifiers: Coronary Disease-Associated Artery/Lesion type: [place] artery [place] vs. transplanted heart: e[place] heart Associated angina: without angina Qualified Code(s): I25.10 - Atherosclerotic heart disease of [place] coronary artery without angina pectoris (6) DM2 (diabetes mellitus, type 2) Current Visit: Yes Status: Chronic Assessment and plan: Patient's hypoglycemia slightly improved from yesterday after basal dose decreased from 40 to 20 BID Continue to hold preprandial insulin boluses but continue low dose SSI ACHS accuchecks Qualifiers: Diabetes mellitus complication status: without complication Diabetes mellitus exterminator helper insulin use: with exterminator helper use Qualified Code(s): E11.9 - Type 2 diabetes mellitus without complications; Z79.4 - alf (current) use of insulin; Z79.4 - alf (current) use of insulin; Z79.4 - alf ( current) use of insulin; Z79.4 - meterman (current) use of insulin (7) 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 He states he is having left sided chest pain that started last night but it started after an infusion which he wasn't sure what it was. He has no cardiac history of note but states his breathing is fine. No issues with fever, nausea, vomiting, diarrhea, or constipation. - Constitutional Vitals: Temp Pulse Resp BP Pulse Ox 98.7 F 78 18 106/66 95 06/26/17 07:04 06/26/17 08:41 06/26/17 07:04 06/26/17 07:04 06/26/17 07:04 General appearance: Present: cooperative, A&O X 3, pleasant, no acute distress, answers questions appropriately Internal Medicine: Result - Labs CBC & Chem 7: 06/26/17 05:13 06/26/17 05:13 Labs: Short CBC 06/26/17 Range/Units 05:13 WBC 23.6 H (4.3-11.1) K/mcL Hgb 12.7 L (12.9-16.9) g/dL Hct 39.4 (37.5-50.1) % Plt Count 452 H (140-400) K/mcL Neutrophils # 15.6 H (1.6-8.9) K/mcL BMP 06/26/17 05:13 Sodium 139 Potassium 4.0 Chloride 103 Carbon Dioxide 28 BUN 10 Creatinine 0.60 L Glucose 58 L Calcium 9.1 - ABG Interpretation ABG results: ABG ABG pH 7.45 pH Units (7.32-7.45) 06/21/17 12:18 ABG pCO2 38 mmHg (35-45) 06/21/17 12:18 ABG pO2 56 mmHg (85-104) L 06/21/17 12:18 ABG O2 Saturation 90 % (95-98) L 06/21/17 12:18 - Impressions Impressions Lumbar Spine MRI 06/25/17 14:00 IMPRESSION: Disc and osteophytes result in mild narrowing of the neural foramina throughout the lumbar region as discussed in detail above. No stenosis of the thecal sac in the lumbar region. No abnormal enhancement in the lumbar region. D/ / 06/25/2017 19:56:58 Octavia Guidry MD / [facility] Interpreting Provider: Octavia Guidry MD Thoracic Spine MRI 06/25/17 14:00 IMPRESSION: No disc abnormality, stenosis of the thecal sac, or narrowing of the neural foramina in the thoracic region. No abnormal enhancement in the thoracic spine. Consolidation in the left lung base. D/ / 06/25/2017 19:59:14 Octavia Guidry MD / [facility] Interpreting Provider: Octavia Guidry MD Consult Discharge Plan - Plan Referrals: Catrachita Hernández CNP [Primary Care Provider] - 06/29/17 1:00 pm Brenda Beltran CNP [Advanced Practice Nurse] - 07/10/17 9:20 am <Tyson Wilder - Last Filed: 06/26/17 16:01> Date of Encounter: 06/26/17 - Constitutional Vitals: Temp Pulse Resp BP Pulse Ox 99.2 F 75 18 112/65 94 06/26/17 11:41 06/26/17 15:26 06/26/17 11:41 06/26/17 11:41 06/26/17 11:41 Internal Medicine: Result - Labs CBC & Chem 7: 06/26/17 05:13 06/26/17 05:13 Labs: Short CBC 06/26/17 Range/Units 05:13 WBC 23.6 H (4.3-11.1) K/mcL Hgb 12.7 L (12.9-16.9) g/dL Hct 39.4 (37.5-50.1) % Plt Count 452 H (140-400) K/mcL Neutrophils # 15.6 H (1.6-8.9) K/mcL BMP 06/26/17 05:13 Sodium 139 Potassium 4.0 Chloride 103 Carbon Dioxide 28 BUN 10 Creatinine 0.60 L Glucose 58 L Calcium 9.1 Cardiac Enzymes 06/26/17 Range/Units 09:24 Troponin I 0.01 (0-0.03) ng/mL - ABG Interpretation ABG results: ABG ABG pH 7.45 pH Units (7.32-7.45) 06/21/17 12:18 ABG pCO2 38 mmHg (35-45) 06/21/17 12:18 ABG pO2 56 mmHg (85-104) L 06/21/17 12:18 ABG O2 Saturation 90 % (95-98) L 06/21/17 12:18 - Impressions Impressions Lumbar Spine MRI 06/25/17 14:00 IMPRESSION: Disc and osteophytes result in mild narrowing of the neural foramina throughout the lumbar region as discussed in detail above. No stenosis of the thecal sac in the lumbar region. No abnormal enhancement in the lumbar region. D/ / 06/25/2017 19:56:58 Octavia Guidry MD / [facility] Interpreting Provider: Octavia Guidry MD Thoracic Spine MRI 06/25/17 14:00 IMPRESSION: No disc abnormality, stenosis of the thecal sac, or narrowing of the neural foramina in the thoracic region. No abnormal enhancement in the thoracic spine. Consolidation in the left lung base. D/ / 06/25/2017 19:59:14 Octavia Guidry MD / [facility] Interpreting Provider: Octavia Guidry MD - Attending Attestation I conducted a face to face diagnostic evaluation of this patient and my medical decision-making was reviewed with the Resident Physician, Dr Sinan Moss. I agree with the documented findings, disposition and treatment plan as described except to the extent set forth below: Patient reports improvement and his left-sided chest pain. He states that cough has also improved. On exam he is in no acute distress. Heart is regular. Lungs are clear. EKG personally reviewed shows normal sinus rhythm, normal rate, normal axis and intervals, no acute ST and T-wave changes. Plan: Continue with IV vancomycin. I discussed the need for subacute rehabilitation for the patient today and he is in agreement with disposition planning. All listed medical problems are new to me today. Tyson Wilder MD
--- NOTE | 2017-06-26 11:16 | Pulmonology Progress Note ---
Date of Encounter: 06/26/17 Time of Encounter: 11:00 Assessment and Plan (1) MRSA (methicillin resistant Staphylococcus aureus) infection Current Visit: Yes Status: Acute Patient had MRSA bactremia with septic embolic and multilobar pneumonia classical for hematogenous spread now the blood cultures x 2 negative , with FREIDA negative for any vegetations , to get MRI of spine according to primary team . Patient repeated mice bite in his skin that can be potential source . Will need vermin exterminator antibiotics due to multifocal MRSA pneumonia for atleast 4 weeks (2) Septic embolism Current Visit: Yes Status: Acute Patient has multiple pulmonary septic emboli most likely due ot MRSA bactremia FREIDA is negative , will need atleast 4 weeks of antibiotics MRSA bactremia with pneumonia IV Vancomycin will be the choice . Therapeutic levels to be done drawn today (3) COPD (chronic obstructive pulmonary disease) Current Visit: No Status: Chronic To continue bronchodilators Qualifiers: COPD type: chronic bronchitis Chronic bronchitis type: simple Qualified Code(s): J41.0 - Simple chronic bronchitis (4) GOLDEN (obstructive sleep apnea) Current Visit: Yes Status: Acute Patient is motivated to use PAP therapy regularly. Subjective Principal diagnosis: MRSA bactremia Interval history: 56 year old male with MRSA bactremia and septic emboli now on IV antibiotics he is feeling lot better was sitting eating his lunch not back to his baseline yet Objective PUL Vital signs: Last Vital Signs Temp 98.7 F 06/26/17 07:04 Pulse 78 06/26/17 08:41 Resp 18 06/26/17 07:04 BP 106/66 06/26/17 07:04 Pulse Ox 95 06/26/17 07:04 Auscultation: bilateral: diminished breath sounds, other (some basilar scattered crackles ) Results - Laboratory Findings CBC and BMP: 06/26/17 05:13 06/26/17 05:13 ABG ABG pH 7.45 pH Units (7.32-7.45) 06/21/17 12:18 ABG pCO2 38 mmHg (35-45) 06/21/17 12:18 ABG pO2 56 mmHg (85-104) L 06/21/17 12:18 ABG O2 Saturation 90 % (95-98) L 06/21/17 12:18 Abnormal lab findings: Abnormal lab results WBC 23.6 K/mcL (4.3-11.1) H 06/26/17 05:13 RBC 4.06 M/mcL (4.19-5.50) L 06/26/17 05:13 Hgb 12.7 g/dL (12.9-16.9) L 06/26/17 05:13 Plt Count 452 K/mcL (140-400) H 06/26/17 05:13 Immature Gran % 4.2 % (0-4) H 06/25/17 05:26 Band Neutrophils % 22.0 % (0-4) H 06/26/17 05:13 Metamyelocytes % 1.0 % (0) H 06/24/17 07:31 Neutrophils # 15.6 K/mcL (1.6-8.9) H 06/26/17 05:13 Lymphocytes # 5.7 K/mcL (0.6-4.6) H 06/26/17 05:13 Monocytes # 2.4 K/mcL (0.0-1.3) H 06/26/17 05:13 Nucleated RBCs/100 WBC 0.1 /100 WBC (0) H 06/25/17 05:26 Reactive Lymphocytes Present (Not Present) A 06/26/17 05:13 Dohle Bodies Present (Not Present) A 06/21/17 08:03 Platelet Estimate Slight increase (Normal) H 06/26/17 05:13 Clumped Platelets Few (Not Present) A 06/21/17 08:03 Large Platelets Present (Not Present) A 06/25/17 05:26 ABG pO2 56 mmHg (85-104) L 06/21/17 12:18 ABG Total CO2 27 mEq/L (20-26) H 06/21/17 12:18 ABG O2 Saturation 90 % (95-98) L 06/21/17 12:18 Creatinine 0.60 mg/dL (0.72-1.25) L 06/26/17 05:13 Glucose 58 mg/dL (70-99) L 06/26/17 05:13 POC Glucose 257 (58-89) H 06/25/17 17:02 Albumin 2.2 g/dL (3.5-5.0) L 06/25/17 05:26 Globulin 4.3 g/dL (2.4-3.5) H 06/25/17 05:26 Albumin/Globulin Ratio 0.5 (1.1-2.2) L 06/25/17 05:26 Ur Specific [place] > 1.030 (1.010-1.025) H 06/21/17 12:35 Urine Protein 30 mg/dL (Neg-Trace) H 06/21/17 12:35 Urine Glucose (UA) >=1000 mg/dL (Normal) H 06/21/17 12:35 Urine Ketones Trace mg/dL (Negative) H 06/21/17 12:35 Vancomycin Trough 8.6 mcg/mL (10-20) L 06/25/17 05:26 Mycoplasma pneumon IgG 2.24 U/L (<=0.09) H 06/22/17 03:47 - Microbiology Findings Microbiology Findings: Microbiology, Last 48 Hours 06/22/17 13:24 Blood Culture - Preliminary Peripheral Venipuncture No growth. 06/22/17 13:24 Blood Culture - Preliminary Peripheral Venipuncture No growth. - Clinical Findings Intake & Output: Intake & Output 06/25/17 06/26/17 06/26/17 23:59 07:59 15:59 Intake Total 750 / 750 570 / 570 Output Total 750 / 750 300 / 300 400 / 400 Balance 0 / 0 270 / 270 -400 / -400 Weight 84.4 kg Consult Discharge Plan - Plan Referrals: Catrachita Hernández CNP [Primary Care Provider] - 06/29/17 1:00 pm Brenda Beltran CNP [Advanced Practice Nurse] - 07/10/17 9:20 am
--- NOTE | 2017-06-26 12:49 | Infectious Disease Progress No ---
Date of Encounter: 06/26/17 Time of Encounter: 12:45 - Assessment and Plan (1) Severe sepsis Current Visit: Yes Status: Acute The patient had two SIRS criteria on admission with VANI and lactic acidosis. Likely secondary to bacteremia and PNA. Improved. The patient has been afebrile x 4 days. Leukocytosis is improving. Hypotension has resolved. Blood cultures drawn 06/20/17 were positive 2/2 sets for MRSA. Repeat blood cultures drawn 06/21/17 x 1 set and 06/22/17 x 2 sets are negative. (2) Bacteremia Current Visit: Yes Status: Acute Causative organism: MRSA. Source unclear, but possibly PNA. He does have a history of mouse bites to his head, but clinically these do not appear infected. Complicated due to septic emboli in the lungs. Blood cultures drawn 06/20/17 were positive 2/2 sets for MRSA. Repeat blood cultures drawn 06/21/17 x 1 set and 06/22/17 x 2 sets are negative. No endocarditis stigmata noted on exam, but the patient does have septic emboli. He has one major and one minor Modified Mireles's Criteria. TTE negative for vegetations. FREIDA negative. Continue Vancomycin IV. Pharmacy to dose. Goal trough ~15. Vanc trough 8.6. Dosing discussed with pharmacy. Discontinue doxycycline. Duration of treatment depends on the clinical picture, but likely 4 weeks of IV antibiotics will be required. Monitor renal function and for drug toxicity and dose-adjust antibiotics. environmental services aide to follow to assist with discharge planning. Apparently, there is concern about the patient's living conditions. He would likely benefit from ECF placement to complete his course of IV antibiotics. Consult VAT for PICC placement in preparation for discharge. Will need weekly CBC, BUN/Cr, and Vanc trough every Sunday for the duration of antibiotic therapy. Weekly PICC care per protocol. Follow up with ID 07/10/17 at 0920. (3) Multifocal pneumonia Current Visit: Yes Status: Acute Causative organism unclear, but given the blood culture results, concern for MRSA. Get sputum and send for culture if the patient is able to give an adequate specimen. Check S. pneumo and Legionella UAT. Continue antibiotics as above. Continue contact and respiratory precautions. (4) Septic embolism Current Visit: Yes Status: Acute Location: Bilateral Lungs. Secondary to MRSA bacteremia. Pulmonology consulted and following. (5) Back pain Current Visit: Yes Status: Acute Location: Thoracic and lumbar spine. Etiology unclear. The patient has chronic back pain, but states it has gotten worse since being in the hospital. Given the patient's markedly elevated WBC, concern for OM/discitis. MRI negative for OM/discitis. Check ESR and CRP. Continue antibiotics as above. Pain management per the primary team. Qualifiers: Back pain location: low back pain Chronicity: chronic Back pain laterality: midline Sciatica presence: without sciatica Qualified Code(s): M54.5 - Low back pain; G89.29 - Other chronic pain; G89.29 - Other chronic pain (6) Hyperglycemia Current Visit: No Status: Acute Likely secondary to poorly controlled DM and sepsis. Improved. Management per the primary team. (7) Hyponatremia Current Visit: No Status: Resolved Likely pseudohyponatremia from hyperglycemia. Resolved. (8) Chest pain Current Visit: No Status: Acute Appears pleuritic. Likely secondary to PNA and septic emboli. Pain management per the primary team. Qualifiers: Chest pain type: unspecified Qualified Code(s): R07.9 - Chest pain, unspecified (9) COPD (chronic obstructive pulmonary disease) Current Visit: No Status: Chronic Qualifiers: COPD type: chronic bronchitis Chronic bronchitis type: simple Qualified Code(s): J41.0 - Simple chronic bronchitis (10) Coronary artery disease Current Visit: No Status: Chronic Qualifiers: Coronary Disease-Associated Artery/Lesion type: [place] artery [place] vs. transplanted heart: [place] heart Associated angina: without angina Qualified Code(s): I25.10 - Atherosclerotic heart disease of [place] coronary artery without angina pectoris (11) DM2 (diabetes mellitus, type 2) Current Visit: Yes Status: Chronic Check HgbA1C. Recommend aggressive glucose monitoring and control. Management per the primary team. 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 Discontinue doxycycline. - Subjective Interval history: Patient seen and examined. No acute events noted overnight. MRI of the T-spine and L-spine negative for OM/discitis. Denies fevers, chills, or rigors. Denies chest pain or shortness of breath. Reports sparse, dry cough. Denies nausea, vomiting, or diarrhea. Denies abdominal pain, appetite changes, or urinary complaints. Complains of left lateral chest wall pain that started yesterday. Denies oral thrush or skin lesions. Infect Dis PN-Objective Data - Labs CBC & Chem 7: 06/26/17 05:13 06/26/17 05:13 Labs: Laboratory Results - last 24 hr 06/25/17 06/25/17 06/25/17 10:41 11:45 13:55 WBC RBC Hgb Hct MCV MCH MCHC RDW Plt Count MPV Seg Neutrophils % Band Neutrophils % Lymphocytes % Monocytes % Neutrophils # Lymphocytes # Monocytes # Reactive Lymphocytes Platelet Estimate Sodium Potassium Chloride Carbon Dioxide BUN Creatinine Est GFR ( Amer) Est GFR (Non-Af Amer) BUN/Creatinine Ratio Glucose POC Glucose 70 58 209 H Calculated Osmolality Calcium Troponin I 06/25/17 06/26/17 06/26/17 17:02 05:13 05:13 WBC 23.6 H RBC 4.06 L Hgb 12.7 L Hct 39.4 MCV 97.0 MCH 31.3 MCHC 32.2 RDW 13.5 Plt Count 452 H MPV 9.6 Seg Neutrophils % 44.0 Band Neutrophils % 22.0 H Lymphocytes % 24.0 Monocytes % 10.0 Neutrophils # 15.6 H Lymphocytes # 5.7 H Monocytes # 2.4 H Reactive Lymphocytes Present A Platelet Estimate Slight increase H Sodium 139 Potassium 4.0 Chloride 103 Carbon Dioxide 28 BUN 10 Creatinine 0.60 L Est GFR ( Amer) > 60 Est GFR (Non-Af Amer) > 60 BUN/Creatinine Ratio 17 Glucose 58 L POC Glucose 257 H Calculated Osmolality 285 Calcium 9.1 Troponin I 06/26/17 09:24 WBC RBC Hgb Hct MCV MCH MCHC RDW Plt Count MPV Seg Neutrophils % Band Neutrophils % Lymphocytes % Monocytes % Neutrophils # Lymphocytes # Monocytes # Reactive Lymphocytes Platelet Estimate Sodium Potassium Chloride Carbon Dioxide BUN Creatinine Est GFR ( Amer) Est GFR (Non-Af Amer) BUN/Creatinine Ratio Glucose POC Glucose Calculated Osmolality Calcium Troponin I 0.01 Cultures: Cultures 06/22/17 13:24 Blood Culture - Preliminary Peripheral Venipuncture No growth. 06/22/17 13:24 Blood Culture - Preliminary Peripheral Venipuncture No growth. 06/21/17 10:40 Blood Culture - Preliminary Peripheral Venipuncture No growth. 06/21/17 12:35 Legionella Antigen - Final Urine,Clean Catch Serology 06/22/17 06/21/17 Range/Units 03:47 12:35 Urine Color Yellow (Yellow) Urine Clarity Clear (Clear) Urine pH 6.0 (5.0-8.0) pH Units Ur Specific [place] > 1.030 H (1.010-1.025) Urine Protein 30 H (Neg-Trace) mg/dL Urine Glucose (UA) >=1000 H (Normal) mg/dL Urine Ketones Trace H (Negative) mg/dL Urine Blood Negative (Negative) Urine Nitrite Negative (Negative) Urine Bilirubin Negative (Negative) Urine Urobilinogen Normal (Normal) mg/dL Ur Leukocyte Esterase Negative (Negative) Urine Microscopic RBC 0-3 (0-3) per hpf Urine Microscopic WBC 0-3 (0-3) per hpf Ur Squamous Epith Cells Few (None-Few) per lpf Urine Bacteria None Seen (None-Few) per hpf Ur Culture Indicated? NO (NO) Mycoplasma pneumon IgG 2.24 H (<=0.09) U/L Mycoplasma pneumon IgM 0.17 (<=0.76) U/L - Impressions Impressions Lumbar Spine MRI 06/25/17 14:00 IMPRESSION: Disc and osteophytes result in mild narrowing of the neural foramina throughout the lumbar region as discussed in detail above. No stenosis of the thecal sac in the lumbar region. No abnormal enhancement in the lumbar region. D/ / 06/25/2017 19:56:58 Octavia Guidry MD / [place] Interpreting Provider: Octavia Guidry MD Thoracic Spine MRI 06/25/17 14:00 IMPRESSION: No disc abnormality, stenosis of the thecal sac, or narrowing of the neural foramina in the thoracic region. No abnormal enhancement in the thoracic spine. Consolidation in the left lung base. D/ / 06/25/2017 19:59:14 Octavia Guidry MD / [place] Interpreting Provider: Octavia Guidry MD Exam - Constitutional Vitals: Temp Pulse Resp BP Pulse Ox 99.2 F 72 18 112/65 94 06/26/17 11:41 06/26/17 12:30 06/26/17 11:41 06/26/17 11:41 06/26/17 11:41 General appearance: cooperative, no acute distress, obese - Head Head exam: Present: atraumatic, normal inspection, normocephalic - Eye Eye exam: Present: EOMI, normal appearance, PERRL Pupils: Present: normal accommodation Additional comments: No subconjunctival hemorrhage noted. - ENT ENT exam: Present: mucous membranes moist - Neck Neck exam: Present: normal inspection - Respiratory Respiratory exam: Present: CTAB. Absent: rales, respiratory distress, rhonchi, wheezes - Cardiovascular Cardiovascular exam: Present: RRR, +S1, +S2 - GI/Abdominal GI/Abdominal exam: Present: distended (obese), normal bowel sounds, soft. Absent: tenderness - Extremities Exam Extremities exam: Present: normal inspection. Absent: joint swelling, pedal edema, tenderness Additional comments: No endocarditis stigmata noted. - Neurological Exam Neurological exam: Present: alert, oriented X3, no focal deficits, strengths equal and symetr throughout - Psychiatric Psychiatric exam: Present: normal affect, normal mood - Skin Skin exam: Present: dry, intact, normal color, warm Additional comments: Small scabbed lesion noted to the forehead without erythema, warmth, or drainage noted. Consult Discharge Plan - Plan Referrals: Catrachita Hernández CNP [Primary Care Provider] - 06/29/17 1:00 pm Brenda Beltran CNP [Advanced Practice Nurse] - 07/10/17 9:20 am
[2017-06-26] MEDS: *HR* OxyCODONE/APAP 7.5/325 TABLET PO PRN (20:37)
[2017-06-27] MEDS: Ipratropium/Albuterol Neb 3 ML IH SCH ×5 (03:39→20:48)
[2017-06-27] MEDS: Vancomycin 1,250 MG in D5% in Water 250 ML IVPB SCH ×2 (03:55→11:22)
[2017-06-27 04:59] LABS: Hematocrit 38.8 % (37.5-50.1); Hemoglobin 12.7 g/dL (12.9-16.9); Mean Corpuscular HGB Conc 32.7 g/dL (31.6-35.5); Mean Corpuscular Hemoglobin 31.4 pg (28.0-33.3); Mean Platelet Volume 9.2 fL (9.4-12.4); Platelet Count 540 K/mcL (140-400); Red Blood Count 4.04 M/mcL (4.19-5.50); Red Cell Distribution Width 13.3 % (11.5-14.5)
[2017-06-27 05:24] LABS: BUN/Creatinine Ratio 22 (6-26); Blood Urea Nitrogen 12 mg/dL (6-20); Calcium 8.8 mg/dL (8.6-10.3); Carbon Dioxide 30 mEq/L (23-29); Chloride 104 mEq/L (98-107); Glucose 72 mg/dL (70-105); Osmolality,Calculated 286 (280-300); Potassium 3.8 mEq/L (3.5-5.1); Sodium 139 mEq/L (136-145); eGFR For African Americans > 60 (> 60); eGFR For Non-African Americans > 60 (> 60)
[2017-06-27 06:12] LABS: Eosinophils # 0.4 K/mcL (0.0-0.6)
[2017-06-27 06:14] LABS: Basophils # 0.2 K/mcL (0.0-0.2); Lymphocytes # 7.2 K/mcL (0.6-4.6); Monocytes # 2.1 K/mcL (0.0-1.3); Neutrophils # 10.8 K/mcL (1.6-8.9); Platelet Estimate Increased (Normal)
[2017-06-27 06:15] LABS: Reactive Lymphocytes Present (Not Present)
[2017-06-27] MEDS: *HR* Heparin 5,000 UNIT/ML VIAL SQ SCH ×2 (06:45→17:21)
[2017-06-27] MEDS: *HR* OxyCODONE/APAP 7.5/325 TABLET PO PRN ×2 (07:00→21:45)
[2017-06-27] MEDS: Insulin LISPRO 300 UNITS/3 ML VIAL SQ SCH ×4 (07:46→21:36)
[2017-06-27] MEDS: Colchicine 0.6 MG TABLET PO SCH (07:49)
[2017-06-27] MEDS: Ranolazine 500 MG TAB.ER.12H PO SCH ×2 (07:50→21:43)
[2017-06-27] MEDS: Aspirin 81 MG TAB.CHEW PO SCH (07:50)
[2017-06-27] MEDS: Insulin DETEMIR 100 UNIT/ML X5UNITS SQ SCH ×2 (08:25→21:45)
--- NOTE | 2017-06-27 09:04 | Infectious Disease Progress No ---
Date of Encounter: 06/27/17 Time of Encounter: 09:01 - Assessment and Plan (1) Severe sepsis Current Visit: Yes Status: Acute The patient had two SIRS criteria on admission with VANI and lactic acidosis. Likely secondary to bacteremia and PNA. Improved. The patient has been afebrile x 4 days. Leukocytosis is improving. Hypotension has resolved. Blood cultures drawn 06/20/17 were positive 2/2 sets for MRSA. Repeat blood cultures drawn 06/21/17 x 1 set and 06/22/17 x 2 sets are negative. (2) Bacteremia Current Visit: Yes Status: Acute Causative organism: MRSA. Source unclear, but possibly PNA. He does have a history of mouse bites to his head, but clinically these do not appear infected. Complicated due to septic emboli in the lungs. Blood cultures drawn 06/20/17 were positive 2/2 sets for MRSA. Repeat blood cultures drawn 06/21/17 x 1 set and 06/22/17 x 2 sets are negative. No endocarditis stigmata noted on exam, but the patient does have septic emboli. He has one major and one minor Modified Mireles's Criteria. TTE negative for vegetations. FREIDA negative. Continue Vancomycin IV. Pharmacy to dose. Goal trough ~15. Duration of treatment depends on the clinical picture, but likely 4 weeks of IV antibiotics will be required. Monitor renal function and for drug toxicity and dose-adjust antibiotics. vp marketing services and skin to follow to assist with discharge planning. Apparently, there is concern about the patient's living conditions. He would likely benefit from ECF placement to complete his course of IV antibiotics. Consult VAT for PICC placement in preparation for discharge. Will need weekly CBC, BUN/Cr, and Vanc trough every Sunday for the duration of antibiotic therapy. Weekly PICC care per protocol. Follow up with ID 07/10/17 at 0920. (3) Multifocal pneumonia Current Visit: Yes Status: Acute Causative organism unclear, but given the blood culture results, concern for MRSA. Get sputum and send for culture if the patient is able to give an adequate specimen. Check S. pneumo and Legionella UAT. Continue antibiotics as above. Continue contact and respiratory precautions. (4) Septic embolism Current Visit: Yes Status: Acute Location: Bilateral Lungs. Secondary to MRSA bacteremia. Pulmonology consulted and following. (5) Back pain Current Visit: Yes Status: Acute Location: Thoracic and lumbar spine. Etiology unclear. The patient has chronic back pain, but states it has gotten worse since being in the hospital. Given the patient's markedly elevated WBC, concern for OM/discitis. MRI negative for OM/discitis. Continue antibiotics as above. Pain management per the primary team. Qualifiers: Back pain location: low back pain Chronicity: chronic Back pain laterality: midline Sciatica presence: without sciatica Qualified Code(s): M54.5 - Low back pain; G89.29 - Other chronic pain; G89.29 - Other chronic pain (6) Hyperglycemia Current Visit: No Status: Acute Likely secondary to poorly controlled DM and sepsis. Improved. Management per the primary team. (7) Hyponatremia Current Visit: No Status: Resolved Likely pseudohyponatremia from hyperglycemia. Resolved. (8) Chest pain Current Visit: No Status: Acute Appears pleuritic. Likely secondary to PNA and septic emboli. Pain management per the primary team. Qualifiers: Chest pain type: unspecified Qualified Code(s): R07.9 - Chest pain, unspecified (9) COPD (chronic obstructive pulmonary disease) Current Visit: No Status: Chronic Qualifiers: COPD type: chronic bronchitis Chronic bronchitis type: simple Qualified Code(s): J41.0 - Simple chronic bronchitis (10) Coronary artery disease Current Visit: No Status: Chronic Qualifiers: Coronary Disease-Associated Artery/Lesion type: [place] artery [place] vs. transplanted heart: [place] heart Associated angina: without angina Qualified Code(s): I25.10 - Atherosclerotic heart disease of [place] coronary artery without angina pectoris (11) DM2 (diabetes mellitus, type 2) Current Visit: Yes Status: Chronic Check HgbA1C. Recommend aggressive glucose monitoring and control. Management per the primary team. 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 . - Subjective Interval history: Patient seen and examined. No acute events noted overnight. Denies fevers, chills, or rigors. Denies chest pain or shortness of breath. Reports sparse cough, now productive of dark yellow sputum. Denies nausea, vomiting, or diarrhea. Denies abdominal pain, appetite changes, or urinary complaints. Complains of left lateral chest wall pain, but states is improved today. Denies oral thrush or skin lesions. Infect Dis PN-Objective Data - Labs CBC & Chem 7: 06/27/17 04:49 06/27/17 04:49 Labs: Laboratory Results - last 24 hr 06/25/17 06/26/17 06/26/17 19:35 05:04 07:06 WBC RBC Hgb Hct MCV MCH MCHC RDW Plt Count MPV Seg Neutrophils % Lymphocytes % Monocytes % Eosinophils % Basophils % Myelocytes % Neutrophils # Lymphocytes # Monocytes # Eosinophils # Basophils # Reactive Lymphocytes Platelet Estimate Sodium Potassium Chloride Carbon Dioxide BUN Creatinine Est GFR ( Amer) Est GFR (Non-Af Amer) BUN/Creatinine Ratio Glucose POC Glucose 154 H 78 56 L Calculated Osmolality Calcium Troponin I Vancomycin Trough 06/26/17 06/26/17 06/26/17 09:24 11:39 16:30 WBC RBC Hgb Hct MCV MCH MCHC RDW Plt Count MPV Seg Neutrophils % Lymphocytes % Monocytes % Eosinophils % Basophils % Myelocytes % Neutrophils # Lymphocytes # Monocytes # Eosinophils # Basophils # Reactive Lymphocytes Platelet Estimate Sodium Potassium Chloride Carbon Dioxide BUN Creatinine Est GFR ( Amer) Est GFR (Non-Af Amer) BUN/Creatinine Ratio Glucose POC Glucose 172 H 200 H Calculated Osmolality Calcium Troponin I 0.01 Vancomycin Trough 06/26/17 06/26/17 06/27/17 19:11 20:30 04:49 WBC 21.1 H RBC 4.04 L Hgb 12.7 L Hct 38.8 MCV 96.0 MCH 31.4 MCHC 32.7 RDW 13.3 Plt Count 540 H MPV 9.2 L Seg Neutrophils % 51.0 Lymphocytes % 34.0 Monocytes % 10.0 Eosinophils % 2.0 Basophils % 1.0 Myelocytes % 2.0 H Neutrophils # 10.8 H Lymphocytes # 7.2 H Monocytes # 2.1 H Eosinophils # 0.4 Basophils # 0.2 Reactive Lymphocytes Present A Platelet Estimate Increased H Sodium Potassium Chloride Carbon Dioxide BUN Creatinine Est GFR ( Amer) Est GFR (Non-Af Amer) BUN/Creatinine Ratio Glucose POC Glucose 158 H Calculated Osmolality Calcium Troponin I Vancomycin Trough 14.6 06/27/17 04:49 WBC RBC Hgb Hct MCV MCH MCHC RDW Plt Count MPV Seg Neutrophils % Lymphocytes % Monocytes % Eosinophils % Basophils % Myelocytes % Neutrophils # Lymphocytes # Monocytes # Eosinophils # Basophils # Reactive Lymphocytes Platelet Estimate Sodium 139 Potassium 3.8 Chloride 104 Carbon Dioxide 30 H BUN 12 Creatinine 0.54 L Est GFR ( Amer) > 60 Est GFR (Non-Af Amer) > 60 BUN/Creatinine Ratio 22 Glucose 72 POC Glucose Calculated Osmolality 286 Calcium 8.8 Troponin I Vancomycin Trough Cultures: Cultures 06/21/17 10:40 Blood Culture - Final Peripheral Venipuncture No growth. 06/22/17 13:24 Blood Culture - Preliminary Peripheral Venipuncture No growth. 06/22/17 13:24 Blood Culture - Preliminary Peripheral Venipuncture No growth. 06/21/17 12:35 Legionella Antigen - Final Urine,Clean Catch Serology 06/22/17 06/21/17 Range/Units 03:47 12:35 Urine Color Yellow (Yellow) Urine Clarity Clear (Clear) Urine pH 6.0 (5.0-8.0) pH Units Ur Specific [place] > 1.030 H (1.010-1.025) Urine Protein 30 H (Neg-Trace) mg/dL Urine Glucose (UA) >=1000 H (Normal) mg/dL Urine Ketones Trace H (Negative) mg/dL Urine Blood Negative (Negative) Urine Nitrite Negative (Negative) Urine Bilirubin Negative (Negative) Urine Urobilinogen Normal (Normal) mg/dL Ur Leukocyte Esterase Negative (Negative) Urine Microscopic RBC 0-3 (0-3) per hpf Urine Microscopic WBC 0-3 (0-3) per hpf Ur Squamous Epith Cells Few (None-Few) per lpf Urine Bacteria None Seen (None-Few) per hpf Ur Culture Indicated? NO (NO) Mycoplasma pneumon IgG 2.24 H (<=0.09) U/L Mycoplasma pneumon IgM 0.17 (<=0.76) U/L Exam - Constitutional Vitals: Temp Pulse Resp BP Pulse Ox 99.2 F 64 16 110/60 91 06/27/17 04:56 06/27/17 07:56 06/27/17 07:48 06/27/17 07:48 06/27/17 07:48 General appearance: cooperative, no acute distress, obese - Head Head exam: Present: atraumatic, normal inspection, normocephalic - Eye Eye exam: Present: EOMI, normal appearance, PERRL Pupils: Present: normal accommodation Additional comments: No subconjunctival hemorrhage noted. - ENT ENT exam: Present: mucous membranes moist - Neck Neck exam: Present: normal inspection - Respiratory Respiratory exam: Present: CTAB. Absent: rales, respiratory distress, rhonchi, wheezes - Cardiovascular Cardiovascular exam: Present: RRR, +S1, +S2 - GI/Abdominal GI/Abdominal exam: Present: distended (obese), normal bowel sounds, soft. Absent: tenderness - Extremities Exam Extremities exam: Present: normal inspection. Absent: joint swelling, pedal edema, tenderness - Neurological Exam Neurological exam: Present: alert, oriented X3, no focal deficits - Psychiatric Psychiatric exam: Present: normal affect, normal mood - Skin Skin exam: Present: dry, intact, normal color, warm Additional comments: No endocarditis stigmata noted. Consult Discharge Plan - Plan Referrals: Catrachita Hernández CNP [Primary Care Provider] - 06/29/17 1:00 pm Brenda Beltran CNP [Advanced Practice Nurse] - 07/10/17 9:20 am
--- NOTE | 2017-06-27 09:04 | Internal Med Progress Note ---
<Sinan Moss - Last Filed: 06/27/17 14:52> Date of Encounter: 06/27/17 Time of Encounter: 09:02 - Assessment and plan (1) MRSA bacteremia Current Visit: Yes Status: Acute Assessment and plan: Initial cultures positive for MRSA 2/, but repeat cultures remain negative FREIDA 06/25 did not reveal vegetations Continue with Vanc day 6 and doxycycline has been discontinued per ID recommendations White count continues to decrease, down to 21.3 yesterday PICC line has been place this patient will need 4 weeks of IV Vancomycin Pharmacist has been contacted and will change dose to q12hr as patient will be going to [facility] to get infusion upon discharge (2) Multifocal pneumonia Current Visit: Yes Status: Acute Assessment and plan: CT chest initially showed bilateral opacities with initial concerns for septic emboli, but FREIDA was negative Pulmonology is consulted, who do not believe he needs urgent bronch at this time Continue with Vanc as above (3) COPD (chronic obstructive pulmonary disease) Current Visit: No Status: Chronic Assessment and plan: Pulmonology consulted and felt symptoms were more due to PNA rather than COPD exacerbation Not currently on steroids, but will continue supplemental oxygen and breathing treatments Qualifiers: COPD type: chronic bronchitis Chronic bronchitis type: simple Qualified Code(s): J41.0 - Simple chronic bronchitis (4) Hypertension Current Visit: No Status: Chronic Assessment and plan: Blood pressures well controlled Restarted home BB Qualifiers: Hypertension type: essential hypertension Qualified Code(s): I10 - Essential (primary) hypertension (5) Coronary artery disease Current Visit: No Status: Chronic Assessment and plan: Patient no longer having any chest pain EKG and troponin yesterday were both unremarkable Continue home ASA, plavix, BB, Statin Qualifiers: Coronary Disease-Associated Artery/Lesion type: [place] artery [place] vs. transplanted heart: [place] heart Associated angina: without angina Qualified Code(s): I25.10 - Atherosclerotic heart disease of [place] coronary artery without angina pectoris (6) DM2 (diabetes mellitus, type 2) Current Visit: Yes Status: Chronic Assessment and plan: Patient's hypoglycemia slightly improved after basal dose decreased from 40 to 20 BID on 06/25 Continue to hold preprandial insulin boluses but continue low dose SSI ACHS accuchecks Qualifiers: Diabetes mellitus complication status: without complication Diabetes mellitus fci insulin use: with terminal operations manager use Qualified Code(s): E11.9 - Type 2 diabetes mellitus without complications; Z79.4 - termite exterminator helper (current) use of insulin; Z79.4 - termite exterminator helper (current) use of insulin; Z79.4 - termite exterminator helper ( current) use of insulin; Z79.4 - correction (current) use of insulin (7) 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 He states his chest pain has completely resolved and still has chronic back pain but has no issues with breathing. Ate his breakfast without difficulties and denies any diarrhea or constipation. - Constitutional Vitals: Temp Pulse Resp BP Pulse Ox 99.2 F 64 16 110/60 91 06/27/17 04:56 06/27/17 07:56 06/27/17 07:48 06/27/17 07:48 06/27/17 07:48 General appearance: Present: cooperative, pleasant, no acute distress, answers questions appropriately - Head Head exam: Present: atraumatic, normocephalic - Eye Eye exam: Present: PERRL, conjuntiva pink, sclera anicteric - Neck Neck exam general surgery: Present: supple, trachea midline. Absent: lymphadenopathy - Respiratory Respiratory exam: Present: CTAB. Absent: accessory muscle use, rales, rhonchi, wheezes - Cardiovascular Cardiovascular exam: Present: RRR, +S1, +S2. Absent: diastolic murmur, gallop, rubs, systolic murmur - GI/Abdominal GI/Abdominal exam: Present: normal bowel sounds, soft, no peritoneal signs. Absent: distended, tenderness - Extremities Exam Extremities exam: Present: warm, radial pulses palpable and symmetrical. Absent : calf tenderness, cyanotic, pedal edema - Neurological Exam Neurological exam: Present: alert, no focal deficits. Absent: facial droop, speech deficit - Skin Skin exam: Present: dry, intact Internal Medicine: Result - Labs CBC & Chem 7: 06/27/17 04:49 06/27/17 04:49 Labs: Short CBC 06/27/17 Range/Units 04:49 WBC 21.1 H (4.3-11.1) K/mcL Hgb 12.7 L (12.9-16.9) g/dL Hct 38.8 (37.5-50.1) % Plt Count 540 H (140-400) K/mcL Neutrophils # 10.8 H (1.6-8.9) K/mcL BMP 06/27/17 04:49 Sodium 139 Potassium 3.8 Chloride 104 Carbon Dioxide 30 H BUN 12 Creatinine 0.54 L Glucose 72 Calcium 8.8 Cardiac Enzymes 06/26/17 Range/Units 09:24 Troponin I 0.01 (0-0.03) ng/mL - ABG Interpretation ABG results: ABG ABG pH 7.45 pH Units (7.32-7.45) 06/21/17 12:18 ABG pCO2 38 mmHg (35-45) 06/21/17 12:18 ABG pO2 56 mmHg (85-104) L 06/21/17 12:18 ABG O2 Saturation 90 % (95-98) L 06/21/17 12:18 Consult Discharge Plan - Plan Referrals: Catrachita Hernández CNP [Primary Care Provider] - 06/29/17 1:00 pm Brenda Beltran CNP [Advanced Practice Nurse] - 07/10/17 9:20 am <Tyson Wilder - Last Filed: 06/27/17 18:31> Date of Encounter: 06/27/17 - Constitutional Vitals: Temp Pulse Resp BP Pulse Ox 98.7 F 83 16 129/68 92 06/27/17 17:15 06/27/17 17:15 06/27/17 17:15 06/27/17 17:15 06/27/17 17:15 Internal Medicine: Result - Labs CBC & Chem 7: 06/27/17 04:49 06/27/17 04:49 Labs: Short CBC 06/27/17 Range/Units 04:49 WBC 21.1 H (4.3-11.1) K/mcL Hgb 12.7 L (12.9-16.9) g/dL Hct 38.8 (37.5-50.1) % Plt Count 540 H (140-400) K/mcL Neutrophils # 10.8 H (1.6-8.9) K/mcL BMP 06/27/17 04:49 Sodium 139 Potassium 3.8 Chloride 104 Carbon Dioxide 30 H BUN 12 Creatinine 0.54 L Glucose 72 Calcium 8.8 - ABG Interpretation ABG results: ABG ABG pH 7.45 pH Units (7.32-7.45) 06/21/17 12:18 ABG pCO2 38 mmHg (35-45) 06/21/17 12:18 ABG pO2 56 mmHg (85-104) L 06/21/17 12:18 ABG O2 Saturation 90 % (95-98) L 06/21/17 12:18 - Attending Attestation I conducted a face to face diagnostic evaluation of this patient and my medical decision-making was reviewed with the Resident Physician, Dr Sinan Moss. I agree with the documented findings, disposition and treatment plan as described except to the extent set forth below: On exam he is in no acute distress. Heart is regular, lungs are clear. Extremities with no edema. Plan continue with IV antibiotics. Switch IV vancomycin to 1750 mg IV twice a day and check trough level tomorrow. He is at high risk for morbidity mortality and complications due to IV vancomycin which requires close blood level monitoring for toxicity Tyson Wilder MD
--- NOTE | 2017-06-27 11:36 | Pulmonology Progress Note ---
Date of Encounter: 06/27/17 Time of Encounter: 11:20 Assessment and Plan (1) MRSA (methicillin resistant Staphylococcus aureus) infection Current Visit: Yes Status: Acute Patient had MRSA bactremia with septic embolic and multilobar pneumonia classical for hematogenous spread now the blood cultures x 2 negative , with FREIDA negative for any vegetations , to get MRI of spine according to primary team . Patient repeated mice bite in his skin that can be potential source . Will need superintendent terminal antibiotics due to multifocal MRSA pneumonia for atleast 4 weeks . Had PICC line today patient to go home on vancomycin will sign off call with questions. (2) Septic embolism Current Visit: Yes Status: Acute Patient has multiple pulmonary septic emboli most likely due ot MRSA bactremia FREIDA is negative , will need atleast 4 weeks of antibiotics MRSA bactremia with pneumonia IV Vancomycin will be the choice . (3) COPD (chronic obstructive pulmonary disease) Current Visit: No Status: Chronic To continue bronchodilators . Will need follow up in outpatient pulmonary in 8 weeks Qualifiers: COPD type: chronic bronchitis Chronic bronchitis type: simple Qualified Code(s): J41.0 - Simple chronic bronchitis (4) GOLDEN (obstructive sleep apnea) Current Visit: Yes Status: Acute Patient is motivated to use PAP therapy regularly. Has a machine at home Subjective Principal diagnosis: MRSA bactremia Interval history: 56 year old male with MRSA bactremia and septic emboli now on IV antibiotics he is feeling lot better was sitting eating his lunch nearly back to baseline Objective PUL Vital signs: Last Vital Signs Temp 99.2 F 06/27/17 04:56 Pulse 68 06/27/17 11:31 Resp 16 06/27/17 11:20 BP 85/48 06/27/17 11:20 Pulse Ox 91 06/27/17 11:20 Auscultation: bilateral: diminished breath sounds Results - Laboratory Findings CBC and BMP: 06/27/17 04:49 06/27/17 04:49 ABG ABG pH 7.45 pH Units (7.32-7.45) 06/21/17 12:18 ABG pCO2 38 mmHg (35-45) 06/21/17 12:18 ABG pO2 56 mmHg (85-104) L 06/21/17 12:18 ABG O2 Saturation 90 % (95-98) L 06/21/17 12:18 Abnormal lab findings: Abnormal lab results WBC 21.1 K/mcL (4.3-11.1) H 06/27/17 04:49 RBC 4.04 M/mcL (4.19-5.50) L 06/27/17 04:49 Hgb 12.7 g/dL (12.9-16.9) L 06/27/17 04:49 Plt Count 540 K/mcL (140-400) H 06/27/17 04:49 MPV 9.2 fL (9.4-12.4) L 06/27/17 04:49 Immature Gran % 4.2 % (0-4) H 06/25/17 05:26 Band Neutrophils % 22.0 % (0-4) H 06/26/17 05:13 Metamyelocytes % 1.0 % (0) H 06/24/17 07:31 Myelocytes % 2.0 % (0) H 06/27/17 04:49 Neutrophils # 10.8 K/mcL (1.6-8.9) H 06/27/17 04:49 Lymphocytes # 7.2 K/mcL (0.6-4.6) H 06/27/17 04:49 Monocytes # 2.1 K/mcL (0.0-1.3) H 06/27/17 04:49 Nucleated RBCs/100 WBC 0.1 /100 WBC (0) H 06/25/17 05:26 Reactive Lymphocytes Present (Not Present) A 06/27/17 04:49 Dohle Bodies Present (Not Present) A 06/21/17 08:03 Platelet Estimate Increased (Normal) H 06/27/17 04:49 Clumped Platelets Few (Not Present) A 06/21/17 08:03 Large Platelets Present (Not Present) A 06/25/17 05:26 ABG pO2 56 mmHg (85-104) L 06/21/17 12:18 ABG Total CO2 27 mEq/L (20-26) H 06/21/17 12:18 ABG O2 Saturation 90 % (95-98) L 06/21/17 12:18 Carbon Dioxide 30 mEq/L (23-29) H 06/27/17 04:49 Creatinine 0.54 mg/dL (0.70-1.30) L 06/27/17 04:49 POC Glucose 158 (58-89) H 06/26/17 20:30 Albumin 2.2 g/dL (3.5-5.0) L 06/25/17 05:26 Globulin 4.3 g/dL (2.4-3.5) H 06/25/17 05:26 Albumin/Globulin Ratio 0.5 (1.1-2.2) L 06/25/17 05:26 Ur Specific [place] > 1.030 (1.010-1.025) H 06/21/17 12:35 Urine Protein 30 mg/dL (Neg-Trace) H 06/21/17 12:35 Urine Glucose (UA) >=1000 mg/dL (Normal) H 06/21/17 12:35 Urine Ketones Trace mg/dL (Negative) H 06/21/17 12:35 Mycoplasma pneumon IgG 2.24 U/L (<=0.09) H 06/22/17 03:47 - Microbiology Findings Microbiology Findings: Microbiology, Last 48 Hours 06/21/17 10:40 Blood Culture - Final Peripheral Venipuncture No growth. - Clinical Findings Intake & Output: Intake & Output 06/26/17 06/27/17 06/27/17 23:59 07:59 15:59 Intake Total 250 / 250 250 / 250 480 / 480 Output Total 975 / 975 375 / 375 0 / 0 Balance -725 / -725 -125 / -125 480 / 480 Weight 82.7 kg Consult Discharge Plan - Plan Referrals: Catrachita Hernández CNP [Primary Care Provider] - 06/29/17 1:00 pm Brenda Beltran CNP [Advanced Practice Nurse] - 07/10/17 9:20 am
[2017-06-27] MEDS ORDERED: Aminoglycoside Consult 1 EACH MC ONE (15:39)
--- NOTE | 2017-06-27 16:55 | Electrocardiograph Report ---
[place] [id number] Test Date: 2017-06-26 Pat Name: James Ibanez Department: 110 Room: 2N14 Gender: M Sterilization Tech: : 1960 Requested By: Sinan Moss Order Number: [id number] Reading MD: Michael Fernandez MD Measurements Intervals [place] Rate: 75 P: -22 WI: 179 QRS: -9 QRSD: 97 T: 30 QT: 381 QTc: 410 Interpretive Statements SINUS RHYTHM Electronically Signed On 06-27-2017 16:54:00 EST by Michael Fernandez MD
[2017-06-27] MEDS: Vancomycin 1,750 MG in D5% in Water 500 ML IVPB SCH (23:02)
[2017-06-28] MEDS: Ipratropium/Albuterol Neb 3 ML IH SCH ×5 (00:49→15:17)
[2017-06-28 04:15] LABS: Hemoglobin 11.7 g/dL (12.9-16.9); Mean Corpuscular HGB Conc 32.5 g/dL (31.6-35.5); Mean Corpuscular Hemoglobin 31.5 pg (28.0-33.3); Mean Corpuscular Volume 96.8 fL (83.0-100.0); Mean Platelet Volume 9.2 fL (9.4-12.4); Platelet Count 601 K/mcL (140-400); Red Blood Count 3.72 M/mcL (4.19-5.50); Red Cell Distribution Width 13.1 % (11.5-14.5)
[2017-06-28 04:34] LABS: Eosinophils # 0.9 K/mcL (0.0-0.6); Lymphocytes # 3.4 K/mcL (0.6-4.6); Monocytes # 2.1 K/mcL (0.0-1.3)
[2017-06-28 04:35] LABS: Platelet Estimate Increased (Normal)
[2017-06-28 04:43] LABS: BUN/Creatinine Ratio 27 (6-26); Blood Urea Nitrogen 14 mg/dL (6-20); Calcium 8.6 mg/dL (8.6-10.3); Carbon Dioxide 28 mEq/L (23-29); Chloride 105 mEq/L (98-107); Glucose 184 mg/dL (70-105); Osmolality,Calculated 297 (280-300); Potassium 3.9 mEq/L (3.5-5.1); Sodium 141 mEq/L (136-145); eGFR For African Americans > 60 (> 60); eGFR For Non-African Americans > 60 (> 60)
[2017-06-28] MEDS: *HR* Heparin 5,000 UNIT/ML VIAL SQ SCH (06:18)
[2017-06-28] MEDS: Ranolazine 500 MG TAB.ER.12H PO SCH (07:51)
[2017-06-28] MEDS: Aspirin 81 MG TAB.CHEW PO SCH (07:51)
[2017-06-28] MEDS: Colchicine 0.6 MG TABLET PO SCH (07:51)
[2017-06-28] MEDS: Insulin LISPRO 300 UNITS/3 ML VIAL SQ SCH ×2 (07:52→12:18)
--- NOTE | 2017-06-28 08:20 | Discharge Summary ---
<Sinan Moss - Last Filed: 06/28/17 11:07> Date of Encounter: 06/28/17 Time of Encounter: 08:18 - Discharge Diagnosis (1) MRSA bacteremia Priority: Primary Status: Acute (2) Multifocal pneumonia Priority: Secondary Status: Acute (3) COPD (chronic obstructive pulmonary disease) Priority: Secondary Status: Chronic Qualifiers: COPD type: chronic bronchitis Chronic bronchitis type: simple Qualified Code(s): J41.0 - Simple chronic bronchitis (4) Hypertension Priority: Secondary Status: Chronic Qualifiers: Hypertension type: essential hypertension Qualified Code(s): I10 - Essential (primary) hypertension (5) Coronary artery disease Priority: Secondary Status: Chronic Qualifiers: Coronary Disease-Associated Artery/Lesion type: [place] artery [place] vs. transplanted heart: [place] heart Associated angina: without angina Qualified Code(s): I25.10 - Atherosclerotic heart disease of [place] coronary artery without angina pectoris (6) DM2 (diabetes mellitus, type 2) Priority: Secondary Status: Chronic Qualifiers: Diabetes mellitus complication status: without complication Diabetes mellitus metal extrusion supervisor insulin use: with metal extrusion supervisor use Qualified Code(s): E11.9 - Type 2 diabetes mellitus without complications; Z79.4 - custodial (current) use of insulin; Z79.4 - custodial (current) use of insulin; Z79.4 - custodial ( current) use of insulin; Z79.4 - transmission calibration engineer (current) use of insulin (7) 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, sequela Priority: Secondary Status: Chronic (8) DVT prophylaxis Priority: Secondary Status: Acute - Discharge Medications Prescriptions: Vancomycin [Vancocin] 1,750 gm IV Q12H #42 vial Home Medications: Canagliflozin/Metformin HCl [Invokamet 150-1,000 mg Tablet] 1 each PO BID [History] Colchicine [Colcrys] 0.6 mg PO DAILY 04/08/15 [History] DULoxetine [Cymbalta] 60 mg PO DAILY 04/08/15 [History] Nortriptyline HCl 25 mg PO HS 04/08/15 [History] OxyCODONE/APAP 7.5/325 [Percocet 7.5/325] 1 each PO Q8HR 04/08/15 [History] Oxygen 1 each .ROUTE PRN PRN 04/08/15 [History] Pravastatin Sodium [Pravachol] 20 mg PO DAILY 04/08/15 [History] Pregabalin [Lyrica] 300 mg PO BID 04/08/15 [History] SitaGLIPtin [Januvia] 100 mg PO DAILY PRN 04/08/15 [History] Insulin Glargine,Hum.rec.anlog [Lantus Solostar] 80 unit SQ BID 04/09/15 [ History] Insulin LISPRO [HumaLOG] 75 units SQ TIDWM 04/09/15 [History] Albuterol Sulfate [Proair Hfa] 2 puff IH Q4H PRN 05/19/16 [History] Aspirin 81 mg PO DAILY 05/19/16 [History] Docusate Sodium [Dok] 100 mg PO DAILY PRN 05/19/16 [History] Fluticasone/Salmeterol [Advair 250-50 Diskus] 1 puff IH BID 05/19/16 [History] Ipratropium/Albuterol Neb [Duoneb] 3 ml IH Q6HR PRN 05/19/16 [History] Polyethylene Glycol 3350 [MiraLAX] 17 gm PO DAILY PRN 05/19/16 [History] Clopidogrel [Plavix] 75 mg PO DAILY #30 tablet 05/20/16 [Rx] Metoprolol [Lopressor] 25 mg PO BID #60 tablet 05/20/16 [Rx] Nitroglycerin 0.4 mg SL Q5MIN PRN #30 tab.subl 05/20/16 [Rx] Allopurinol [Zyloprim 100 MG] 100 mg PO DAILY 06/21/17 [History] Isosorbide MONOnitrate (24 HR) [Imdur] 30 mg PO DAILY 06/21/17 [History] Ranolazine [Ranexa] 500 mg PO BID 06/21/17 [History] Vancomycin [Vancocin] 1,750 gm IV Q12H #42 vial 06/28/17 [Rx] Allergies/Adverse Reactions: 3 Allergy/AdvReac Type Severity Reaction Status Date / Time No Known Allergies Allergy Verified 06/20/17 20:00 Procedures/tests Complete & Pending: Procedures Performed prior 72 hours Category Date Time Status MR lumbar spine wo/w con [MR] Routine MRI 06/25/17 14:00 Draft MR thoracic spine wo/w con [MR] Routine MRI 06/25/17 14:00 Draft ECG 12 lead ECG [ECG] Routine Y 06/26/17 09:13 Completed EV FREIDA transesophageal echo Stat Y 06/25/17 09:47 Completed Date of admission: 06/21/17 05:28 Primary care physician: Catrachita Hernández CNP Consults: 06/21/17 06:11 Consult to Nutrition [CONS] Routine Comment: Consulting Provider: NUTRITION Reason for Dietary Consult: MST Score Consult to Boarding Mother [CONS] Routine Reason for SW Consult: Pt requesting guidance setting up POA. Poor home living conditions. Per pt niece does not feed him properly and there are mice at home that bite him while sleeping. 06/22/17 13:00 Consult to Infectious Diseases [CONS] Routine Consulting Provider: Infectious Disease Tiffany Reason for Consult: bacteremia Call Completed: Yes 06/24/17 09:46 Consult to Pulmonology [CONS] Routine Consulting Provider: Pulm Crit Care & Sleep [place] Reason for Consult: Suspect MRSA multifocal PNA vs septic emboli Call Completed: Yes 06/27/17 11:05 Consult to Invasive Line Access Team [CONS] Routine Reason for Consult: PICC line insertion Line Type: PICC 06/27/17 13:54 Consult to Invasive Line Access Team [CONS] Routine Reason for Consult: Picc Line Insertion Line Type: PICC Discharging clinician: Sinan Moss Anticipated date of discharge: 06/28/17 - Patient Status Disposition: Home Health Service Condition: Good Functional capacity at discharge: independent ambulation Overall status at discharge: patient is progressing back to baseline - Discharge Instructions Follow Up With: Catrachita Hernández CNP [Primary Care Provider] - 07/05/17 10:00 am Brenda Beltran CNP [Advanced Practice Nurse] - 07/10/17 9:20 am Additional Instructions: Please follow up with your PCP and infectious disease provider as scheduled Home health will assist you in home infusion of antibiotics - Diet and Activity Activity: increase activity as tolerated Diet: diabetic diet Hospital course: Mr. Ibanez is a 56 year old male who initially presented with cough and congestion for 2 weeks. He was initially thought to have COPD exacerbation in setting of pneumonia and was started on empiric antibiotics of vancomycin and cefepime. Blood cultures eventually grew MRSA and there was concern of septic emboli as demonstrated on CT. A transthoracic and follow-up transesophageal echocardiogram revealed no vegetation. Infectious disease was also consulted and ordered MRI of his spine to look for other source of infection but imaging was negative. Patient is a hoarder and admits to having mice living in his room. He does have bites on his forehead but states that he has taken necessary steps as his niece who lives with him will purchase mouse traps when he gets home. He will receive an additional 3 weeks (4 weeks total) of IV vancomycin for MRSA bacteremia and will be following closely with infectious diseases to monitor his vancomycin troughs. emergency services director initially evaluated patient and recommended ECF, however patient elected to go home with home health and will be on Vancomycin every 12 hours. - Time Spent with Patient Total time spent providing and/or coordinating discharge services: - Constitutional Vitals: Temp Pulse Resp BP Pulse Ox 98.1 F 65 18 116/66 95 06/28/17 07:15 06/28/17 07:15 06/28/17 07:15 06/28/17 07:15 06/28/17 07:15 General appearance: Present: cooperative, pleasant, no acute distress, answers questions appropriately - Head Head exam: Present: atraumatic, normocephalic - Eye Eye exam: Present: PERRL, conjuntiva pink, sclera anicteric - Neck Neck exam general surgery: Present: supple, trachea midline. Absent: lymphadenopathy - Respiratory Respiratory exam: Present: CTAB. Absent: accessory muscle use, rales, rhonchi, wheezes - Cardiovascular Cardiovascular exam: Present: RRR, +S1, +S2. Absent: diastolic murmur, gallop, rubs, systolic murmur - GI/Abdominal GI/Abdominal exam: Present: normal bowel sounds, soft, no peritoneal signs. Absent: distended, tenderness - Extremities Exam Extremities exam: Present: pedal edema (trace), warm, radial pulses palpable and symmetrical. Absent: calf tenderness, cyanotic - Neurological Exam Neurological exam: Present: alert, no focal deficits. Absent: facial droop, speech deficit - Skin Skin exam: Present: dry, intact <Tyson Wilder - Last Filed: 06/28/17 18:59> Date of Encounter: 06/28/17 Procedures/tests Complete & Pending: Procedures Performed prior 72 hours Category Date Time Status ECG 12 lead ECG [ECG] Routine Y 06/26/17 09:13 Completed Date of admission: 06/21/17 05:28 Primary care physician: Catrachita Hernández CNP Consults: 06/21/17 06:11 Consult to Nutrition [CONS] Routine Comment: Consulting Provider: NUTRITION Reason for Dietary Consult: MST Score Consult to Boarding Mother [CONS] Routine Reason for SW Consult: Pt requesting guidance setting up POA. Poor home living conditions. Per pt niece does not feed him properly and there are mice at home that bite him while sleeping. 06/22/17 13:00 Consult to Infectious Diseases [CONS] Routine Consulting Provider: Infectious Disease [place] Reason for Consult: bacteremia Call Completed: Yes 06/24/17 09:46 Consult to Pulmonology [CONS] Routine Consulting Provider: Pulm Crit Care & Sleep Tiffany Reason for Consult: Suspect MRSA multifocal PNA vs septic emboli Call Completed: Yes 06/27/17 11:05 Consult to Invasive Line Access Team [CONS] Routine Reason for Consult: PICC line insertion Line Type: PICC 06/27/17 13:54 Consult to Invasive Line Access Team [CONS] Routine Reason for Consult: Picc Line Insertion Line Type: PICC Hospital course: Mr. Ibanez is a 56 year old male - Time Spent with Patient Total time spent providing and/or coordinating discharge services: - Constitutional Vitals: Temp Pulse Resp BP Pulse Ox 98.2 F 67 18 123/68 92 06/28/17 11:31 06/28/17 11:31 06/28/17 11:31 06/28/17 11:31 06/28/17 11:31 - Attending Attestation I conducted a face to face diagnostic evaluation of this patient and my medical decision-making was reviewed with the Resident Physician. I agree with the documented findings, disposition and treatment plan as described except to the extent set forth below: Patient is in no acute distress. Heart is regular S1-S2 no murmurs. Lungs are clear. Plan: Patient will be discharged home to complete 4 weeks of IV vancomycin for MRSA bacteremia at a dose of 1750 mg IV every 12 hours to be administered at [facility]. I have instructed the patient to follow up closely with PCP. I have spent 40 minutes coordinating this discharge. Tyson Wilder MD
--- NOTE | 2017-06-28 08:23 | Physician Discharge Referral ---
Home Health/Hosp Referral Info Transfer to: Home Health Attending Provider: Dr. 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 For more information, call the [employer] Quit Line at 3-536-YHTF-NOW. - Diet/Nutrition Diet/Nutrition Orders: No Concentrated Sweets - Activity Activity Orders: Ambulate - Services Needed Following services are medically necessary services: Home Infusion - Transfer Medications Prescriptions: Vancomycin [Vancocin] 1,750 gm IV Q12H #42 vial Home Medications: Canagliflozin/Metformin HCl [Invokamet 150-1,000 mg Tablet] 1 each PO BID [History] Colchicine [Colcrys] 0.6 mg PO DAILY 04/08/15 [History] DULoxetine [Cymbalta] 60 mg PO DAILY 04/08/15 [History] Nortriptyline HCl 25 mg PO HS 04/08/15 [History] OxyCODONE/APAP 7.5/325 [Percocet 7.5/325] 1 each PO Q8HR 04/08/15 [History] Oxygen 1 each .ROUTE PRN PRN 04/08/15 [History] Pravastatin Sodium [Pravachol] 20 mg PO DAILY 04/08/15 [History] Pregabalin [Lyrica] 300 mg PO BID 04/08/15 [History] SitaGLIPtin [Januvia] 100 mg PO DAILY PRN 04/08/15 [History] Insulin Glargine,Hum.rec.anlog [Lantus Solostar] 80 unit SQ BID 04/09/15 [ History] Insulin LISPRO [HumaLOG] 75 units SQ TIDWM 04/09/15 [History] Albuterol Sulfate [Proair Hfa] 2 puff IH Q4H PRN 11/11/16 [History] Aspirin 81 mg PO DAILY 05/19/16 [History] Docusate Sodium [Dok] 100 mg PO DAILY PRN 05/19/16 [History] Fluticasone/Salmeterol [Advair 250-50 Diskus] 1 puff IH BID 05/19/16 [History] Ipratropium/Albuterol Neb [Duoneb] 3 ml IH Q6HR PRN 05/19/16 [History] Polyethylene Glycol 3350 [MiraLAX] 17 gm PO DAILY PRN 05/19/16 [History] Clopidogrel [Plavix] 75 mg PO DAILY #30 tablet 05/20/16 [Rx] Metoprolol [Lopressor] 25 mg PO BID #60 tablet 05/20/16 [Rx] Nitroglycerin 0.4 mg SL Q5MIN PRN #30 tab.subl 05/20/16 [Rx] Allopurinol [Zyloprim 100 MG] 100 mg PO DAILY 06/21/17 [History] Isosorbide MONOnitrate (24 HR) [Imdur] 30 mg PO DAILY 06/21/17 [History] Ranolazine [Ranexa] 500 mg PO BID 06/21/17 [History] Vancomycin [Vancocin] 1,750 gm IV Q12H #42 vial 06/28/17 [Rx] Allergies/Adverse Reactions: 3 Allergy/AdvReac Type Severity Reaction Status Date / Time No Known Allergies Allergy Verified 06/20/17 20:00 Certification: Further, I certify that my clinical findings support that this patient is homebound (i.e. absences from home require considerable and taxing effort and are for medical reasons or gnosticist services or infrequently or short duration when for other reasons) because: Homebound Reason: Patient requires assistance of a person or device to safely leave home Attestation: My signature below is to certify that this patient is under my care and that I, or nurse practitioner, or a physician's certified medical technician assistant working with me, has a face-to -face encounter with this patient.
[2017-06-28 11:34] VITALS: BP 123/68
[2017-06-28] MEDS: Insulin DETEMIR 100 UNIT/ML X5UNITS SQ SCH (12:18)
[2017-06-28] MEDS: Vancomycin 1,750 MG in D5% in Water 500 ML IVPB SCH (12:48)
--- NOTE | 2017-06-28 13:02 | Infectious Disease Progress No ---
Date of Encounter: 06/28/17 Time of Encounter: 10:45 - Assessment and Plan (1) Severe sepsis Current Visit: Yes Status: Acute The patient had two SIRS criteria on admission with VANI and lactic acidosis. Likely secondary to bacteremia and PNA. Improved. The patient has been afebrile x 4 days. Leukocytosis is improving. Hypotension has resolved. Blood cultures drawn 06/20/17 were positive 2/2 sets for MRSA. Repeat blood cultures drawn 06/21/17 x 1 set and 06/22/17 x 2 sets are negative. (2) Bacteremia Current Visit: Yes Status: Acute Causative organism: MRSA. Source unclear, but possibly PNA. He does have a history of mouse bites to his head, but clinically these do not appear infected. Complicated due to septic emboli in the lungs. Blood cultures drawn 06/20/17 were positive 2/2 sets for MRSA. Repeat blood cultures drawn 06/21/17 x 1 set and 06/22/17 x 2 sets are negative. No endocarditis stigmata noted on exam, but the patient does have septic emboli. He has one major and one minor Modified Mireles's Criteria. TTE negative for vegetations. FREIDA negative. Continue Vancomycin IV. Pharmacy to dose. Goal trough ~15. Duration of treatment depends on the clinical picture, but likely 4 weeks of IV antibiotics will be required. Monitor renal function and for drug toxicity and dose-adjust antibiotics. real estate services administrator to follow to assist with discharge planning. Apparently, there is concern about the patient's living conditions. He would likely benefit from ECF placement to complete his course of IV antibiotics. Will need weekly CBC, BUN/Cr, and Vanc trough every Sunday for the duration of antibiotic therapy. Weekly PICC care per protocol. Follow up with ID 07/10/17 at 0920. (3) Multifocal pneumonia Current Visit: Yes Status: Acute Causative organism unclear, but given the blood culture results, concern for MRSA. Get sputum and send for culture if the patient is able to give an adequate specimen. Continue antibiotics as above. Continue contact and respiratory precautions. (4) Septic embolism Current Visit: Yes Status: Acute Location: Bilateral Lungs. Secondary to MRSA bacteremia. Pulmonology consulted and following. (5) Back pain Current Visit: Yes Status: Acute Location: Thoracic and lumbar spine. Etiology unclear. The patient has chronic back pain, but states it has gotten worse since being in the hospital. Given the patient's markedly elevated WBC, concern for OM/discitis. MRI negative for OM/discitis. Continue antibiotics as above. Pain management per the primary team. Qualifiers: Back pain location: low back pain Chronicity: chronic Back pain laterality: midline Sciatica presence: without sciatica Qualified Code(s): M54.5 - Low back pain; G89.29 - Other chronic pain; G89.29 - Other chronic pain (6) Hyperglycemia Current Visit: No Status: Acute Likely secondary to poorly controlled DM and sepsis. Improved. Management per the primary team. (7) Hyponatremia Current Visit: No Status: Resolved Likely pseudohyponatremia from hyperglycemia. Resolved. (8) Chest pain Current Visit: No Status: Acute Appears pleuritic. Improved. Likely secondary to PNA and septic emboli. Pain management per the primary team. Qualifiers: Chest pain type: unspecified Qualified Code(s): R07.9 - Chest pain, unspecified (9) COPD (chronic obstructive pulmonary disease) Current Visit: No Status: Chronic Qualifiers: COPD type: chronic bronchitis Chronic bronchitis type: simple Qualified Code(s): J41.0 - Simple chronic bronchitis (10) Coronary artery disease Current Visit: No Status: Chronic Qualifiers: Coronary Disease-Associated Artery/Lesion type: [place] artery [place] vs. transplanted heart: [place] heart Associated angina: without angina Qualified Code(s): I25.10 - Atherosclerotic heart disease of [place] coronary artery without angina pectoris (11) DM2 (diabetes mellitus, type 2) Current Visit: Yes Status: Chronic Check HgbA1C. Recommend aggressive glucose monitoring and control. Management per the primary team. 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 . - Subjective Interval history: Patient seen and examined. No acute events noted overnight. Denies fevers, chills, or rigors. Denies chest pain or shortness of breath. Reports sparse cough, now productive of dark yellow sputum. Denies nausea, vomiting, or diarrhea. Denies abdominal pain, appetite changes, or urinary complaints. Denies left lateral chest wall pain. Denies oral thrush or skin lesions. Infect Dis PN-Objective Data - Labs CBC & Chem 7: 06/28/17 04:00 06/28/17 04:00 Labs: Laboratory Results - last 24 hr 06/27/17 06/27/17 06/27/17 07:42 07:43 11:14 WBC RBC Hgb Hct MCV MCH MCHC RDW Plt Count MPV Seg Neutrophils % Lymphocytes % Monocytes % Eosinophils % Neutrophils # Lymphocytes # Monocytes # Eosinophils # Platelet Estimate Sodium Potassium Chloride Carbon Dioxide BUN Creatinine Est GFR ( Amer) Est GFR (Non-Af Amer) BUN/Creatinine Ratio Glucose POC Glucose 49 L* 50 L 236 H Calculated Osmolality Calcium 06/27/17 06/27/17 06/28/17 17:22 19:30 04:00 WBC 21.4 H RBC 3.72 L Hgb 11.7 L Hct 36.0 L MCV 96.8 MCH 31.5 MCHC 32.5 RDW 13.1 Plt Count 601 H MPV 9.2 L Seg Neutrophils % 70.0 Lymphocytes % 16.0 Monocytes % 10.0 Eosinophils % 4.0 Neutrophils # 15.0 H Lymphocytes # 3.4 Monocytes # 2.1 H Eosinophils # 0.9 H Platelet Estimate Increased H Sodium Potassium Chloride Carbon Dioxide BUN Creatinine Est GFR ( Amer) Est GFR (Non-Af Amer) BUN/Creatinine Ratio Glucose POC Glucose 156 H 160 H Calculated Osmolality Calcium 06/28/17 04:00 WBC RBC Hgb Hct MCV MCH MCHC RDW Plt Count MPV Seg Neutrophils % Lymphocytes % Monocytes % Eosinophils % Neutrophils # Lymphocytes # Monocytes # Eosinophils # Platelet Estimate Sodium 141 Potassium 3.9 Chloride 105 Carbon Dioxide 28 BUN 14 Creatinine 0.51 L Est GFR ( Amer) > 60 Est GFR (Non-Af Amer) > 60 BUN/Creatinine Ratio 27 H Glucose 184 H POC Glucose Calculated Osmolality 297 Calcium 8.6 Cultures: Cultures 06/22/17 13:24 Blood Culture - Final Peripheral Venipuncture No growth. 06/22/17 13:24 Blood Culture - Final Peripheral Venipuncture No growth. 06/21/17 10:40 Blood Culture - Final Peripheral Venipuncture No growth. 06/21/17 12:35 Legionella Antigen - Final Urine,Clean Catch Serology 06/22/17 06/21/17 Range/Units 03:47 12:35 Urine Color Yellow (Yellow) Urine Clarity Clear (Clear) Urine pH 6.0 (5.0-8.0) pH Units Ur Specific [place] > 1.030 H (1.010-1.025) Urine Protein 30 H (Neg-Trace) mg/dL Urine Glucose (UA) >=1000 H (Normal) mg/dL Urine Ketones Trace H (Negative) mg/dL Urine Blood Negative (Negative) Urine Nitrite Negative (Negative) Urine Bilirubin Negative (Negative) Urine Urobilinogen Normal (Normal) mg/dL Ur Leukocyte Esterase Negative (Negative) Urine Microscopic RBC 0-3 (0-3) per hpf Urine Microscopic WBC 0-3 (0-3) per hpf Ur Squamous Epith Cells Few (None-Few) per lpf Urine Bacteria None Seen (None-Few) per hpf Ur Culture Indicated? NO (NO) Mycoplasma pneumon IgG 2.24 H (<=0.09) U/L Mycoplasma pneumon IgM 0.17 (<=0.76) U/L Exam - Constitutional Vitals: Temp Pulse Resp BP Pulse Ox 98.2 F 67 18 123/68 92 06/28/17 11:31 06/28/17 11:31 06/28/17 11:31 06/28/17 11:31 06/28/17 11:31 General appearance: cooperative, no acute distress, obese - Head Head exam: Present: atraumatic, normal inspection, normocephalic - Eye Eye exam: Present: EOMI, normal appearance, PERRL Pupils: Present: normal accommodation Additional comments: No subconjunctival hemorrhage noted. - ENT ENT exam: Present: mucous membranes moist - Neck Neck exam: Present: normal inspection - Respiratory Respiratory exam: Present: CTAB. Absent: rales, respiratory distress, rhonchi, wheezes - Cardiovascular Cardiovascular exam: Present: RRR, +S1, +S2 - GI/Abdominal GI/Abdominal exam: Present: distended (obese), normal bowel sounds, soft. Absent: tenderness - Extremities Exam Extremities exam: Present: normal inspection, pedal edema (Trace BLE). Absent: joint swelling, tenderness - Neurological Exam Neurological exam: Present: alert, oriented X3, no focal deficits - Psychiatric Psychiatric exam: Present: normal affect, normal mood - Skin Skin exam: Present: dry, intact, normal color, warm Additional comments: No endocarditis stigmata noted. Consult Discharge Plan - Plan Additional Instructions: Please follow up with your PCP and infectious disease provider as scheduled Home health will assist you in home infusion of antibiotics Referrals: Catrachita Hernández CNP [Primary Care Provider] - 07/05/17 10:00 am Brenda Beltran CNP [Advanced Practice Nurse] - 07/10/17 9:20 am Prescriptions: Vancomycin [Vancocin] 1,750 gm IV Q12H #42 vial
== END 2017-06-28 15:40 | disposition home health service (06) | DRG 871 ==
LOC: SUATTDRO 05:28 → 2NNU 05:28
PROVIDERS: ADMIT Internal Medicine Hematology & Oncology; ATTEND Internal Medicine

== ENCOUNTER 2020-03-16 11:12 | Observation (INO) ==
[2020-03-16] MEDS ORDERED: *HR* Promethazine 25 MG/ML VIAL IVP PRN (15:22)
[2020-03-16] MEDS ORDERED: *HR* LORazepam 2 MG/ML VIAL IVP PRN ×4 (15:22→15:47)
[2020-03-16 16:49] LABS: Basophils # 0.2 K/mcL (0.0-0.2); Basophils % 1.6 %; Eosinophils # 0.2 K/mcL (0.0-0.6); Eosinophils % 1.3 %; Hemoglobin 12.5 g/dL (12.9-16.9); Immature Granulocytes % 3.9 % (0-4); Lymphocytes # 4.9 K/mcL (0.6-4.6); Lymphocytes % 32.8 %; Mean Corpuscular HGB Conc 33.8 g/dL (31.6-35.5); Mean Corpuscular Hemoglobin 32.6 pg (28.0-33.3); Mean Corpuscular Volume 96.6 fL (83.0-100.0); Mean Platelet Volume 10.6 fL (9.4-12.4); Monocytes # 1.4 K/mcL (0.0-1.3); Monocytes % 9.1 %; Neutrophils # 7.7 K/mcL (1.6-8.9); Platelet Count 396 K/mcL (140-400); Red Blood Count 3.83 M/mcL (4.19-5.50); Red Cell Distribution Width 11.9 % (11.5-14.5); Segmented Neutrophils % 51.3 %
[2020-03-16 16:56] LABS: INR 0.9; Prothrombin Time 10.7 Seconds (9.4-12.1)
[2020-03-16] MEDS: Insulin LISPRO 300 UNITS/3 ML VIAL SQ SCH (17:10)
[2020-03-16] MEDS: *HR* Heparin 5,000 UNIT/ML VIAL SQ SCH (17:10)
[2020-03-16 17:14] LABS: Amylase 42 Units/L (29-103); Ethanol < 10 mg/dL (Less than 10); Lipase 55 Units/L (11-82)
[2020-03-16 17:15] LABS: eGFR For African Americans > 60 (> 60); eGFR For Non-African Americans > 60 (> 60)
[2020-03-16] MEDS ORDERED: Dextrose Gel 15 GM/37.5 ML TUBE PO PRN ×2 (19:53)
[2020-03-16] MEDS ORDERED: D5% in Water 1,000 ML IVC PRN (19:53)
[2020-03-16] MEDS ORDERED: *HR* Dextrose 50 % in Water (Vial) 50 ML VIAL IVP PRN (19:53)
[2020-03-16 20:07] LABS: Estimated Average Glucose 447 mg/dl
[2020-03-16] MEDS: Pregabalin 75 MG CAPSULE PO SCH (21:03)
[2020-03-17 01:33] LABS: Basophils # 0.3 K/mcL (0.0-0.2); Basophils % 1.8 %; Eosinophils # 0.2 K/mcL (0.0-0.6); Eosinophils % 1.5 %; Hematocrit 36.9 % (37.5-50.1); Hemoglobin 12.4 g/dL (12.9-16.9); Immature Granulocytes % 3.4 % (0-4); Lymphocytes # 6.6 K/mcL (0.6-4.6); Lymphocytes % 42.7 %; Mean Corpuscular HGB Conc 33.6 g/dL (31.6-35.5); Mean Corpuscular Hemoglobin 32.3 pg (28.0-33.3); Mean Corpuscular Volume 96.1 fL (83.0-100.0); Mean Platelet Volume 10.4 fL (9.4-12.4); Monocytes # 1.5 K/mcL (0.0-1.3); Monocytes % 9.8 %; Neutrophils # 6.3 K/mcL (1.6-8.9); Platelet Count 395 K/mcL (140-400); Red Blood Count 3.84 M/mcL (4.19-5.50); Red Cell Distribution Width 11.9 % (11.5-14.5); Segmented Neutrophils % 40.8 %; White Blood Count 15.4 K/mcL (4.3-11.1)
[2020-03-17 01:35] LABS: Chol/HDL Ratio 4.5 (0-4.9)
[2020-03-17 01:37] LABS: BUN/Creatinine Ratio 27 (6-26); Blood Urea Nitrogen 17 mg/dL (8-23); Calcium 8.9 mg/dL (8.6-10.3); Carbon Dioxide 25 mEq/L (23-29); Chloride 101 mEq/L (98-107); Glucose 279 mg/dL (70-105); Osmolality,Calculated 294 (280-300); Potassium 4.1 mEq/L (3.5-5.1); Sodium 136 mEq/L (136-145); eGFR For African Americans > 60 (> 60); eGFR For Non-African Americans > 60 (> 60)
[2020-03-17 01:56] LABS: Platelet Estimate Normal (Normal); Reactive Lymphocytes Present (Not Present)
[2020-03-17] MEDS: *HR* Heparin 5,000 UNIT/ML VIAL SQ SCH ×2 (05:38→17:25)
[2020-03-17] MEDS: Vitamin B Complex/Vit C/Vit E 1 EACH TABLET PO SCH (07:47)
[2020-03-17] MEDS: Pregabalin 75 MG CAPSULE PO SCH ×2 (07:48→22:01)
[2020-03-17] MEDS: Aspirin 81 MG TAB.CHEW PO SCH (07:48)
[2020-03-17] MEDS: allopurinoL 100 MG TABLET PO SCH (07:48)
[2020-03-17] MEDS: Colchicine 0.6 MG TABLET PO SCH (07:49)
[2020-03-17] MEDS: Folic Acid 1 MG TABLET PO SCH (07:49)
[2020-03-17] MEDS: Thiamine (B-1) 100 MG TABLET PO SCH (07:49)
[2020-03-17] MEDS: Isosorbide MONOnitrate (24 HR) 30 MG TAB.ER.24H PO SCH (07:49)
[2020-03-17] MEDS: lisinopriL 5 MG TABLET PO SCH (07:49)
[2020-03-17] MEDS: Insulin LISPRO 300 UNITS/3 ML VIAL SQ SCH ×3 (07:51→17:24)
[2020-03-17] MEDS ORDERED: Vancomycin (wt based) 1,000 MG VIAL IVPB SCH (09:00)
[2020-03-17 09:01] LABS: Amphetamine Screen,Urine Negative ng/mL (Cutoff=1000); Barbiturate Screen,Urine Negative ng/mL (Cutoff=200); Benzodiazepines Screen,Urine Negative ng/mL (Cutoff=200); Cannabinoid Screen,Urine Negative ng/mL (Cutoff = 50); Cocaine Screen,Urine Negative ng/mL (Cutoff= 300); Opiate Screen,Urine Negative ng/mL (Cutoff=300); Phencyclidine Screen,Urine Negative ng/mL (Cutoff=25)
[2020-03-17] MEDS ORDERED: *HR* OxyCODONE/APAP 7.5/325 TABLET PO PRN (10:14)
[2020-03-17] MEDS ORDERED: Insulin DETEMIR 100 UNIT/ML X5UNITS SQ ONE (11:12)
[2020-03-17] MEDS ORDERED: Insulin LISPRO 300 UNITS/3 ML VIAL SQ SCH (21:00)
[2020-03-17] MEDS: Insulin DETEMIR 100 UNIT/ML X5UNITS SQ SCH (22:01)
[2020-03-18] MEDS: *HR* Heparin 5,000 UNIT/ML VIAL SQ SCH (05:28)
[2020-03-18 05:32] LABS: Basophils # 0.3 K/mcL (0.0-0.2); Eosinophils # 0.3 K/mcL (0.0-0.6); Eosinophils % 2.3 %; Hematocrit 38.9 % (37.5-50.1); Hemoglobin 12.9 g/dL (12.9-16.9); Lymphocytes # 5.6 K/mcL (0.6-4.6); Lymphocytes % 38.2 %; Mean Corpuscular HGB Conc 33.2 g/dL (31.6-35.5); Mean Corpuscular Hemoglobin 32.3 pg (28.0-33.3); Mean Corpuscular Volume 97.5 fL (83.0-100.0); Mean Platelet Volume 10.5 fL (9.4-12.4); Monocytes # 1.5 K/mcL (0.0-1.3); Monocytes % 10.5 %; Platelet Count 378 K/mcL (140-400); Red Blood Count 3.99 M/mcL (4.19-5.50); Red Cell Distribution Width 12.2 % (11.5-14.5); White Blood Count 14.7 K/mcL (4.3-11.1)
[2020-03-18 05:40] LABS: Neutrophils # 6.3 K/mcL (1.6-8.9)
[2020-03-18 05:47] LABS: BUN/Creatinine Ratio 33 (6-26); Blood Urea Nitrogen 19 mg/dL (8-23); Calcium 9.2 mg/dL (8.6-10.3); Carbon Dioxide 26 mEq/L (23-29); Chloride 107 mEq/L (98-107); Glucose 187 mg/dL (70-105); Osmolality,Calculated 297 (280-300); Potassium 3.4 mEq/L (3.5-5.1); Sodium 140 mEq/L (136-145); eGFR For African Americans > 60 (> 60); eGFR For Non-African Americans > 60 (> 60)
[2020-03-18 06:33] LABS: Platelet Estimate Normal (Normal); Reactive Lymphocytes Present (Not Present)
[2020-03-18 07:57] LABS: Vancomycin,Trough 13 mcg/mL (5-10)
[2020-03-18] MEDS: Thiamine (B-1) 100 MG TABLET PO SCH (08:28)
[2020-03-18] MEDS: Aspirin 81 MG TAB.CHEW PO SCH (08:29)
[2020-03-18] MEDS: allopurinoL 100 MG TABLET PO SCH (08:29)
[2020-03-18] MEDS: Colchicine 0.6 MG TABLET PO SCH (08:29)
[2020-03-18] MEDS: Pregabalin 75 MG CAPSULE PO SCH (08:29)
[2020-03-18] MEDS: Folic Acid 1 MG TABLET PO SCH (08:30)
[2020-03-18] MEDS: Isosorbide MONOnitrate (24 HR) 30 MG TAB.ER.24H PO SCH (08:30)
[2020-03-18] MEDS: Insulin LISPRO 300 UNITS/3 ML VIAL SQ SCH (08:31)
[2020-03-18] MEDS: Vitamin B Complex/Vit C/Vit E 1 EACH TABLET PO SCH (08:31)
[2020-03-18] MEDS: Insulin DETEMIR 100 UNIT/ML X5UNITS SQ SCH (08:33)
[2020-03-18] MEDS: lisinopriL 5 MG TABLET PO SCH (08:54)
[2020-03-18] MEDS ORDERED: Vancomycin 1,250 MG/262.5 ML IV.SOLN IVPB SCH (09:00)
[2020-03-18 09:33] VITALS: BP 95/59
== END 2020-03-18 11:03 | disposition home or self-care (01) ==
LOC: 3ANU → SUATTDRO 15:17
PROVIDERS: ADMIT Internal Medicine; ATTEND Internal Medicine

== ENCOUNTER 2020-05-24 13:19 | Inpatient (IN) ==
[2020-05-24] MEDS ORDERED: Acetaminophen 325 MG TABLET PO PRN (16:03)
[2020-05-24] MEDS ORDERED: *HR* OxyCODONE Immed Rel 5 MG TABLET PO PRN (16:03)
[2020-05-24] MEDS ORDERED: Naloxone 0.4 MG/ML INJ IVP PRN (16:03)
[2020-05-24] MEDS ORDERED: Ondansetron 4 MG/2 ML VIAL IVP PRN (16:03)
[2020-05-24] MEDS ORDERED: D5% in Water 1,000 ML IVC PRN (16:09)
[2020-05-24] MEDS ORDERED: Dextrose Gel 15 GM/37.5 ML TUBE PO PRN ×2 (16:09)
[2020-05-24] MEDS ORDERED: 0.9 % Sodium Chloride 1,000 ML ONE (16:23)
[2020-05-24] MEDS ORDERED: 0.9 % Sodium Chloride 1,000 ML IVC ONE (16:23)
[2020-05-24] MEDS: Insulin LISPRO 300 UNITS/3 ML VIAL SQ SCH (16:35)
[2020-05-24 17:16] LABS: BUN/Creatinine Ratio 31 (6-26); Blood Urea Nitrogen 39 mg/dL (8-23); Calcium 8.1 mg/dL (8.6-10.3); Carbon Dioxide 21 mEq/L (23-29); Chloride 98 mEq/L (98-107); Glucose 341 mg/dL (70-105); Osmolality,Calculated 293 (280-300); Potassium 4.7 mEq/L (3.5-5.1); Sodium 130 mEq/L (136-145); eGFR For African Americans > 60 (> 60); eGFR For Non-African Americans 58 (> 60)
[2020-05-24] MEDS: Ringers Solution, Lactated 1,000 ML IVC SCH (18:37)
[2020-05-25] MEDS ORDERED: Acetaminophen 325 MG TABLET PO PRN (01:22)
[2020-05-25] MEDS: Ringers Solution, Lactated 1,000 ML IVC SCH (01:30)
[2020-05-25] MEDS: Insulin LISPRO 300 UNITS/3 ML VIAL SQ SCH ×5 (01:37→20:58)
[2020-05-25] MEDS: *HR* Enoxaparin 40 MG/0.4 ML SYRINGE SQ SCH (04:10)
[2020-05-25 04:58] LABS: Hematocrit 40.9 % (37.5-50.1); Hemoglobin 13.7 g/dL (12.9-16.9); Mean Corpuscular HGB Conc 33.5 g/dL (31.6-35.5); Mean Corpuscular Hemoglobin 32.2 pg (28.0-33.3); Mean Platelet Volume 10.1 fL (9.4-12.4); Platelet Count 276 K/mcL (140-400); Red Blood Count 4.26 M/mcL (4.19-5.50); Red Cell Distribution Width 12.2 % (11.5-14.5); White Blood Count 10.6 K/mcL (4.3-11.1)
[2020-05-25 05:16] LABS: BUN/Creatinine Ratio 30 (6-26); Blood Urea Nitrogen 24 mg/dL (8-23); Carbon Dioxide 18 mEq/L (23-29); Chloride 101 mEq/L (98-107); Glucose 296 mg/dL (70-105); Magnesium 1.8 mg/dL (1.6-2.6); Osmolality,Calculated 289 (280-300); Potassium 4.1 mEq/L (3.5-5.1); Sodium 132 mEq/L (136-145); eGFR For African Americans > 60 (> 60); eGFR For Non-African Americans > 60 (> 60)
[2020-05-25 05:17] LABS: Albumin 3.3 g/dL (3.5-5.7); Albumin/Globulin Ratio 1.1 (1.1-2.2); Bilirubin,Indirect 0.2 mg/dL (0.0-1.0); Bilirubin,Total 0.2 mg/dL (0.3-1.0); Globulin 2.9 g/dL (2.4-3.5); Total Protein 6.2 g/dL (6.4-8.9)
[2020-05-25] MEDS ORDERED: Dexamethasone Sodium Phos/PF 10 MG/ML VIAL IVP SCH (09:00)
[2020-05-25] MEDS ORDERED: Dexamethasone 4 MG/ML VIAL IVP SCH (09:00)
[2020-05-25] MEDS ORDERED: Aspirin 81 MG TAB.CHEW PO SCH (09:00)
[2020-05-25] MEDS: cefTRIAXone 1,000 MG in 0.9 % Sodium Chloride Mini Bag 100 ML IVP SCH (12:40)
[2020-05-25] MEDS: Ipratropium 1 PUFF INHALER IH SCH ×3 (15:20→23:57)
[2020-05-25] MEDS ORDERED: Ipratropium/Albuterol Neb 3 ML IH SCH (16:00)
[2020-05-25] MEDS: Furosemide 20 MG/2 ML VIAL IVP SCH (18:09)
[2020-05-25 19:17] LABS: Bacteria,Urine Few per hpf (None-Few); Bilirubin,Urine Negative (Negative); Blood,Urine Negative (Negative); Clarity,Urine Clear (Clear); Color,Urine Light-Yellow (Yellow); Glucose,Urine (UA) >=1000 mg/dL (Normal); Ketones,Urine 40 mg/dL (Negative); Leukocyte Esterase,Urine Negative (Negative); Mucus,Urine Few per lpf (None-Few); Nitrite,Urine Negative (Negative); PH,Urine 5.5 pH Units (5.0-8.0); Protein,Urine Trace mg/dL (Neg-Trace); RBC,Urine 0-3 per hpf (0-3); Specific Gravity,Urine 1.021 (1.010-1.025); Urobilinogen,Urine Normal (Normal); WBC,Urine 0-3 per hpf (0-3)
[2020-05-25] MEDS ORDERED: Haloperidol Lactate 5 MG/ML VIAL IVP ONE (22:02)
[2020-05-26] MEDS: Dexmedetomidine HCl 400 MCG/100 ML MLS IVC SCH ×2 (01:18→15:32)
[2020-05-26] MEDS: Ipratropium 1 PUFF INHALER IH SCH ×6 (03:22→23:50)
[2020-05-26] MEDS ORDERED: 0.9 % Sodium Chloride 250 ML ONE (04:58)
[2020-05-26 05:16] LABS: Hematocrit 43.1 % (37.5-50.1); Hemoglobin 14.8 g/dL (12.9-16.9); Mean Corpuscular HGB Conc 34.3 g/dL (31.6-35.5); Mean Corpuscular Hemoglobin 32.2 pg (28.0-33.3); Mean Corpuscular Volume 93.7 fL (83.0-100.0); Mean Platelet Volume 11.1 fL (9.4-12.4); Platelet Count 329 K/mcL (140-400); Red Cell Distribution Width 12.5 % (11.5-14.5)
[2020-05-26 05:17] LABS: White Blood Count 18.9 K/mcL (4.3-11.1)
[2020-05-26 05:32] LABS: BUN/Creatinine Ratio 24 (6-26); Blood Urea Nitrogen 14 mg/dL (8-23); Carbon Dioxide 21 mEq/L (23-29); Chloride 101 mEq/L (98-107); Glucose 297 mg/dL (70-105); Magnesium 1.8 mg/dL (1.6-2.6); Osmolality,Calculated 298 (280-300); Potassium 4.3 mEq/L (3.5-5.1); Sodium 138 mEq/L (136-145); eGFR For African Americans > 60 (> 60); eGFR For Non-African Americans > 60 (> 60)
[2020-05-26] MEDS: *HR* Enoxaparin 40 MG/0.4 ML SYRINGE SQ SCH (06:03)
[2020-05-26] MEDS ORDERED: Furosemide 20 MG/2 ML VIAL IVP ONE (08:09)
[2020-05-26] MEDS: Dexamethasone Sodium Phos/PF 10 MG/ML VIAL IVP SCH (08:27)
[2020-05-26] MEDS: cefTRIAXone 1,000 MG in 0.9 % Sodium Chloride Mini Bag 100 ML IVP SCH (08:28)
[2020-05-26] MEDS: Furosemide 20 MG/2 ML VIAL IVP SCH (08:28)
[2020-05-26] MEDS: Insulin LISPRO 300 UNITS/3 ML VIAL SQ SCH ×4 (08:29→20:48)
[2020-05-26] MEDS ORDERED: Furosemide 40 MG/4 ML VIAL IVP ONE (09:57)
[2020-05-26] MEDS ORDERED: *HR* Rocuronium Bromide 50 MG/5 ML VIAL IVP ONE (14:13)
[2020-05-26] MEDS ORDERED: *HR* Propofol 200 MG/20 ML VIAL IVP ONE (14:13)
[2020-05-26] MEDS ORDERED: Furosemide 40 MG/4 ML VIAL IVP STA (18:45)
[2020-05-26] MEDS ORDERED: Dexamethasone Sodium Phos/PF 10 MG/ML VIAL IVP STA (18:46)
[2020-05-26 20:37] LABS: ABG Base Excess 3 mEq/L (-2 to 3); ABG HCO3 27 mEq/L (21-27); ABG Oxygen Saturation 97 % (95-98); ABG PCO2 39 mmHg (35-45); ABG PH 7.46 pH Units (7.32-7.45); ABG PO2 83 mmHg (85-104); ABG TCO2 29 mEq/L (20-26); Blood Gas Modality AVAPS; Blood Gas VT 460 cc
[2020-05-27] MEDS: Dexmedetomidine HCl 400 MCG/100 ML MLS IVC SCH ×4 (02:07→22:02)
[2020-05-27] MEDS: Ipratropium 1 PUFF INHALER IH SCH ×6 (04:08→23:57)
[2020-05-27 04:11] LABS: ABG Base Excess 0 mEq/L (-2 to 3); ABG HCO3 23 mEq/L (21-27); ABG Oxygen Saturation 98 % (95-98); ABG PCO2 33 mmHg (35-45); ABG PH 7.45 pH Units (7.32-7.45); ABG PO2 92 mmHg (85-104); ABG TCO2 24 mEq/L (20-26); Blood Gas Modality avaps; Blood Gas VT 460 cc
[2020-05-27] MEDS: *HR* Enoxaparin 40 MG/0.4 ML SYRINGE SQ SCH (05:56)
[2020-05-27] MEDS: Insulin LISPRO 300 UNITS/3 ML VIAL SQ SCH ×5 (06:02→23:45)
[2020-05-27 07:29] LABS: Basophils % 0.2 %; Hematocrit 46.7 % (37.5-50.1); Hemoglobin 15.7 g/dL (12.9-16.9); Immature Granulocytes % 0.8 % (0-4); Lymphocytes # 1.1 K/mcL (0.6-4.6); Lymphocytes % 5.8 %; Mean Corpuscular HGB Conc 33.6 g/dL (31.6-35.5); Mean Corpuscular Hemoglobin 31.5 pg (28.0-33.3); Mean Corpuscular Volume 93.8 fL (83.0-100.0); Monocytes # 0.6 K/mcL (0.0-1.3); Neutrophils # 17.8 K/mcL (1.6-8.9); Platelet Count 382 K/mcL (140-400); Red Blood Count 4.98 M/mcL (4.19-5.50); Red Cell Distribution Width 12.9 % (11.5-14.5); Segmented Neutrophils % 90.2 %; White Blood Count 19.7 K/mcL (4.3-11.1)
[2020-05-27 07:56] LABS: BUN/Creatinine Ratio 37 (6-26); Blood Urea Nitrogen 33 mg/dL (8-23); Calcium 9.7 mg/dL (8.6-10.3); Carbon Dioxide 21 mEq/L (23-29); Chloride 100 mEq/L (98-107); Glucose 465 mg/dL (70-105); Osmolality,Calculated 322 (280-300); Potassium 3.3 mEq/L (3.5-5.1); Sodium 142 mEq/L (136-145); eGFR For African Americans > 60 (> 60); eGFR For Non-African Americans > 60 (> 60)
[2020-05-27] MEDS ORDERED: Furosemide 80 MG in 0.9 % Sodium Chloride 50 ML IV SCH (09:00)
[2020-05-27] MEDS ORDERED: Insulin Human Regular 10 UNIT in 0.9 % Sodium Chloride 10 ML IV ONE (09:08)
[2020-05-27] MEDS ORDERED: Potassium Chloride 40 MEQ, Lidocaine 1% 2 ML in 0.9 % Sodium Chloride 500 ML IVPB ONE (09:08)
[2020-05-27] MEDS: Dexamethasone Sodium Phos/PF 10 MG/ML VIAL IVP SCH (09:21)
[2020-05-27] MEDS: Insulin DETEMIR 100 UNIT/ML X5UNITS SQ SCH ×2 (09:22→20:35)
[2020-05-27] MEDS: cefTRIAXone 1,000 MG in 0.9 % Sodium Chloride Mini Bag 100 ML IVP SCH (09:23)
[2020-05-27] MEDS ORDERED: Haloperidol Lactate 5 MG/ML VIAL IVP ONE (09:25)
[2020-05-27] MEDS ORDERED: Dexamethasone Sodium Phos/PF 10 MG/ML VIAL IVP SCH (09:30)
[2020-05-27] MEDS ORDERED: Artificial Tears SOLN 15 ML BOTTLE BOTH EYES PRN (09:55)
[2020-05-27] MEDS ORDERED: 0.9 % Sodium Chloride 1,000 ML ONE (09:58)
[2020-05-27] MEDS ORDERED: 0.9 % Sodium Chloride 250 ML ONE (10:00)
[2020-05-27] MEDS ORDERED: Dexamethasone Sodium Phos/PF 10 MG/ML VIAL IVP ONE (10:13)
[2020-05-27] MEDS: Norepinephrine 4 MG/254 ML IV.SOLN IVC SCH (10:30)
[2020-05-27] MEDS: FentaNYL (PF) 1,000 MCG/100 ML IV.SOLN IVC SCH ×3 (10:34→22:01)
[2020-05-27 11:51] LABS: ABG Base Excess -1 mEq/L (-2 to 3); ABG HCO3 25 mEq/L (21-27); ABG Oxygen Saturation 92 % (95-98); ABG PCO2 45 mmHg (35-45); ABG PH 7.35 pH Units (7.32-7.45); ABG PO2 68 mmHg (85-104); ABG TCO2 27 mEq/L (20-26); Blood Gas Modality AF; Blood Gas VT 500 cc
[2020-05-27] MEDS ORDERED: Insulin DETEMIR 100 UNIT/ML X5UNITS SQ SCH (13:46)
[2020-05-27] MEDS: Artificial Tears SOLN 15 ML BOTTLE BOTH EYES SCH ×4 (15:35→23:46)
[2020-05-27] MEDS: Piperacillin/Tazobactam 3.375 GM in 0.9 % Sodium Chloride Mini Bag 100 ML IVPB SCH ×2 (18:31→23:58)
[2020-05-27] MEDS: Chlorhexidine Rinse 15 ML MOUTHWASH MM SCH (19:49)
[2020-05-28] MEDS: Norepinephrine 4 MG/254 ML IV.SOLN IVC SCH ×3 (00:22→18:05)
[2020-05-28] MEDS: Insulin LISPRO 300 UNITS/3 ML VIAL SQ SCH ×6 (00:30→20:21)
[2020-05-28 02:35] LABS: Bilirubin,Urine Small (Negative); Blood,Urine Negative (Negative); Clarity,Urine Clear (Clear); Color,Urine Yellow (Yellow); Glucose,Urine (UA) 50 mg/dL (Normal); Ketones,Urine Trace mg/dL (Negative); Leukocyte Esterase,Urine Negative (Negative); Nitrite,Urine Negative (Negative); PH,Urine 5.5 pH Units (5.0-8.0); Protein,Urine 50 mg/dL (Neg-Trace); RBC,Urine 0-3 per hpf (0-3); Specific Gravity,Urine > 1.030 (1.010-1.025); Squamous Epithelial Cell,Urine Few per hpf (None-Few); Urobilinogen,Urine Normal (Normal)
[2020-05-28] MEDS ORDERED: Insulin LISPRO 300 UNITS/3 ML VIAL SQ ONE (02:40)
[2020-05-28] MEDS: Artificial Tears SOLN 15 ML BOTTLE BOTH EYES SCH ×6 (03:00→23:44)
[2020-05-28] MEDS: Ipratropium 1 PUFF INHALER IH SCH ×6 (03:50→23:29)
[2020-05-28 04:12] LABS: Basophils % 0.2 %; Hematocrit 43.5 % (37.5-50.1); Hemoglobin 14.4 g/dL (12.9-16.9); Immature Granulocytes % 0.8 % (0-4); Lymphocytes # 1.2 K/mcL (0.6-4.6); Lymphocytes % 6.2 %; Mean Corpuscular HGB Conc 33.1 g/dL (31.6-35.5); Mean Corpuscular Hemoglobin 31.9 pg (28.0-33.3); Mean Corpuscular Volume 96.5 fL (83.0-100.0); Mean Platelet Volume 10.9 fL (9.4-12.4); Monocytes # 2.9 K/mcL (0.0-1.3); Monocytes % 15.4 %; Neutrophils # 14.7 K/mcL (1.6-8.9); Platelet Count 280 K/mcL (140-400); Red Blood Count 4.51 M/mcL (4.19-5.50); Red Cell Distribution Width 13.2 % (11.5-14.5); Segmented Neutrophils % 77.4 %
[2020-05-28 04:15] LABS: VBG Ionized Calcium 1.14 mmol/L (1.15-1.35)
[2020-05-28 04:32] LABS: Albumin 3.6 g/dL (3.5-5.7); Albumin/Globulin Ratio 1.1 (1.1-2.2); Bilirubin,Total 0.3 mg/dL (0.3-1.0); Calcium 8.9 mg/dL (8.6-10.3); Globulin 3.3 g/dL (2.4-3.5); Potassium 3.5 mEq/L (3.5-5.1); Total Protein 6.9 g/dL (6.4-8.9)
[2020-05-28] MEDS: FentaNYL (PF) 1,000 MCG/100 ML IV.SOLN IVC SCH ×3 (04:34→19:40)
[2020-05-28 04:58] LABS: ABG Base Excess -2 mEq/L (-2 to 3); ABG HCO3 22 mEq/L (21-27); ABG Oxygen Saturation 93 % (95-98); ABG PCO2 38 mmHg (35-45); ABG PH 7.38 pH Units (7.32-7.45); ABG PO2 68 mmHg (85-104); ABG TCO2 24 mEq/L (20-26); Blood Gas Modality ASSIST CONTROL; Blood Gas VT 400 cc
[2020-05-28] MEDS: *HR* Enoxaparin 40 MG/0.4 ML SYRINGE SQ SCH (05:04)
[2020-05-28] MEDS: Dexmedetomidine HCl 400 MCG/100 ML MLS IVC SCH ×3 (05:21→21:37)
[2020-05-28] MEDS: Piperacillin/Tazobactam 3.375 GM in 0.9 % Sodium Chloride Mini Bag 100 ML IVPB SCH ×3 (08:58→23:43)
[2020-05-28] MEDS: Dexamethasone Sodium Phos/PF 10 MG/ML VIAL IVP SCH (08:58)
[2020-05-28] MEDS: Chlorhexidine Rinse 15 ML MOUTHWASH MM SCH ×2 (08:59→20:19)
[2020-05-28] MEDS ORDERED: Pantoprazole 40 MG VIAL IVP SCH (09:00)
[2020-05-28] MEDS ORDERED: Dexamethasone Sodium Phos/PF 10 MG/ML VIAL IVP SCH (09:00)
[2020-05-28] MEDS ORDERED: Furosemide 40 MG/4 ML VIAL IVP SCH (09:00)
[2020-05-28] MEDS: Insulin DETEMIR 100 UNIT/ML X5UNITS SQ SCH ×2 (09:03→21:25)
[2020-05-28] MEDS ORDERED: Acetaminophen IV 1,000 MG/100 ML INFUS..BTL IVPB ONE (09:38)
[2020-05-28] MEDS ORDERED: *HR* Heparin 5,000 UNIT/ML VIAL IVP PRN (09:48)
[2020-05-28 11:52] LABS: Heparin anti-factor XA UFH 0.29 IU/mL (0.30-0.70); INR 1.1; Prothrombin Time 13.2 Seconds (9.4-12.1)
[2020-05-28] MEDS: Heparin 25,000UNIT/250ML 1/2NS 25,000 UNIT/250 ML IV.SOLN IVC SCH (12:18)
[2020-05-28 12:27] LABS: Hemoglobin 14.5 g/dL (12.9-16.9); Mean Corpuscular HGB Conc 33.7 g/dL (31.6-35.5); Mean Corpuscular Volume 97.7 fL (83.0-100.0); Mean Platelet Volume 11.1 fL (9.4-12.4); Platelet Count 225 K/mcL (140-400); Red Cell Distribution Width 13.4 % (11.5-14.5); White Blood Count 20.3 K/mcL (4.3-11.1)
[2020-05-28] MEDS: Pantoprazole 40 MG in 0.9 % Sodium Chloride Mini Bag 100 ML IVC SCH ×3 (13:34→22:52)
[2020-05-28 21:34] LABS: Hematocrit 43.2 % (37.5-50.1); Hemoglobin 13.9 g/dL (12.9-16.9)
[2020-05-29] MEDS: Insulin LISPRO 300 UNITS/3 ML VIAL SQ SCH ×6 (00:23→20:15)
[2020-05-29] MEDS: Norepinephrine 4 MG/254 ML IV.SOLN IVC SCH ×2 (00:30→10:52)
[2020-05-29] MEDS: FentaNYL (PF) 1,000 MCG/100 ML IV.SOLN IVC SCH ×3 (03:26→18:39)
[2020-05-29] MEDS: Pantoprazole 40 MG in 0.9 % Sodium Chloride Mini Bag 100 ML IVC SCH ×4 (04:08→20:19)
[2020-05-29] MEDS: Artificial Tears SOLN 15 ML BOTTLE BOTH EYES SCH ×5 (04:09→20:15)
[2020-05-29] MEDS: Ipratropium 1 PUFF INHALER IH SCH ×6 (04:17→23:25)
[2020-05-29 04:28] LABS: ABG Base Excess -2 mEq/L (-2 to 3); ABG HCO3 24 mEq/L (21-27); ABG Oxygen Saturation 87 % (95-98); ABG PCO2 43 mmHg (35-45); ABG PH 7.36 pH Units (7.32-7.45); ABG PO2 56 mmHg (85-104); ABG TCO2 25 mEq/L (20-26); Blood Gas Modality ASSIST CONTROL; Blood Gas VT 400 cc
[2020-05-29 04:46] LABS: VBG Ionized Calcium 1.11 mmol/L (1.15-1.35)
[2020-05-29 04:48] LABS: Basophils # 0.1 K/mcL (0.0-0.2); Basophils % 0.3 %; Hematocrit 41.1 % (37.5-50.1); Hemoglobin 13.7 g/dL (12.9-16.9); Immature Granulocytes % 1.1 % (0-4); Lymphocytes # 1.8 K/mcL (0.6-4.6); Mean Corpuscular HGB Conc 33.3 g/dL (31.6-35.5); Mean Corpuscular Hemoglobin 32.2 pg (28.0-33.3); Mean Corpuscular Volume 96.7 fL (83.0-100.0); Mean Platelet Volume 11.8 fL (9.4-12.4); Monocytes # 2.6 K/mcL (0.0-1.3); Monocytes % 14.4 %; Neutrophils # 13.3 K/mcL (1.6-8.9); Nucleated Red Blood Cells 0.4 /100 WBC (0); Platelet Count 172 K/mcL (140-400); Red Blood Count 4.25 M/mcL (4.19-5.50); Red Cell Distribution Width 13.8 % (11.5-14.5); Segmented Neutrophils % 74.2 %; White Blood Count 17.9 K/mcL (4.3-11.1)
[2020-05-29] MEDS: Dexmedetomidine HCl 400 MCG/100 ML MLS IVC SCH ×3 (04:50→21:38)
[2020-05-29 05:07] LABS: Alanine Aminotransferase 20 Units/L (7-52); Albumin 3.1 g/dL (3.5-5.7); Alkaline Phosphatase 67 Units/L (34-104); Aspartate Amino Transferase 39 Units/L (13-39); BUN/Creatinine Ratio 38 (6-26); Bilirubin,Total 0.5 mg/dL (0.3-1.0); Blood Urea Nitrogen 49 mg/dL (8-23); Carbon Dioxide 25 mEq/L (23-29); Chloride 116 mEq/L (98-107); Glucose 328 mg/dL (70-105); Osmolality,Calculated 336 (280-300); Phosphorous 2.3 mg/dL (2.7-4.5); Potassium 3.4 mEq/L (3.5-5.1); Sodium 150 mEq/L (136-145); Total Protein 6.1 g/dL (6.4-8.9); eGFR For African Americans > 60 (> 60); eGFR For Non-African Americans 56 (> 60)
[2020-05-29] MEDS: Chlorhexidine Rinse 15 ML MOUTHWASH MM SCH ×2 (08:06→20:15)
[2020-05-29] MEDS: Dexamethasone Sodium Phos/PF 10 MG/ML VIAL IVP SCH (08:06)
[2020-05-29] MEDS: Piperacillin/Tazobactam 3.375 GM in 0.9 % Sodium Chloride Mini Bag 100 ML IVPB SCH ×3 (08:06→23:04)
[2020-05-29] MEDS: Insulin DETEMIR 100 UNIT/ML X5UNITS SQ SCH ×2 (08:49→20:17)
[2020-05-29] MEDS: Insulin DETEMIR 100 UNIT/ML X5UNITS SQ ONE ×2 (10:08→10:20)
[2020-05-29 11:30] LABS: Hematocrit 38.3 % (37.5-50.1); Hemoglobin 12.5 g/dL (12.9-16.9)
[2020-05-29 20:05] LABS: Hematocrit 35.9 % (37.5-50.1); Hemoglobin 11.8 g/dL (12.9-16.9)
[2020-05-30] MEDS: Insulin LISPRO 300 UNITS/3 ML VIAL SQ SCH ×6 (00:24→20:13)
[2020-05-30] MEDS: Artificial Tears SOLN 15 ML BOTTLE BOTH EYES SCH ×6 (00:25→20:13)
[2020-05-30] MEDS: Pantoprazole 40 MG in 0.9 % Sodium Chloride Mini Bag 100 ML IVC SCH ×6 (00:56→21:14)
[2020-05-30] MEDS: Heparin 25,000UNIT/250ML 1/2NS 25,000 UNIT/250 ML IV.SOLN IVC SCH ×2 (00:57→11:10)
[2020-05-30] MEDS: FentaNYL (PF) 1,000 MCG/100 ML IV.SOLN IVC SCH ×4 (00:58→21:13)
[2020-05-30] MEDS: Norepinephrine 4 MG/254 ML IV.SOLN IVC SCH (00:58)
[2020-05-30] MEDS: Ipratropium 1 PUFF INHALER IH SCH ×6 (03:53→23:01)
[2020-05-30 04:01] LABS: ABG Base Excess 0 mEq/L (-2 to 3); ABG HCO3 26 mEq/L (21-27); ABG Oxygen Saturation 86 % (95-98); ABG PCO2 42 mmHg (35-45); ABG PH 7.39 pH Units (7.32-7.45); ABG PO2 52 mmHg (85-104); ABG TCO2 27 mEq/L (20-26); Blood Gas Modality ASSIST CONTROL; Blood Gas VT 400 cc
[2020-05-30] MEDS: Dexmedetomidine HCl 400 MCG/100 ML MLS IVC SCH ×3 (04:46→18:45)
[2020-05-30 04:54] LABS: Basophils % 0.2 %; Eosinophils # 0.1 K/mcL (0.0-0.6); Eosinophils % 0.3 %; Hematocrit 33.1 % (37.5-50.1); Hemoglobin 10.9 g/dL (12.9-16.9); Immature Granulocytes % 1.3 % (0-4); Lymphocytes # 1.8 K/mcL (0.6-4.6); Lymphocytes % 7.6 %; Mean Corpuscular HGB Conc 32.9 g/dL (31.6-35.5); Mean Corpuscular Hemoglobin 31.9 pg (28.0-33.3); Mean Corpuscular Volume 96.8 fL (83.0-100.0); Mean Platelet Volume 12.2 fL (9.4-12.4); Monocytes # 2.2 K/mcL (0.0-1.3); Monocytes % 9.5 %; Nucleated Red Blood Cells 0.4 /100 WBC (0); Platelet Count 138 K/mcL (140-400); Red Blood Count 3.42 M/mcL (4.19-5.50); Red Cell Distribution Width 14.2 % (11.5-14.5); Segmented Neutrophils % 81.1 %; White Blood Count 23.4 K/mcL (4.3-11.1)
[2020-05-30 05:12] LABS: Alanine Aminotransferase 16 Units/L (7-52); Albumin 2.8 g/dL (3.5-5.7); Albumin/Globulin Ratio 1.1 (1.1-2.2); Alkaline Phosphatase 58 Units/L (34-104); Aspartate Amino Transferase 20 Units/L (13-39); BUN/Creatinine Ratio 40 (6-26); Bilirubin,Total 0.5 mg/dL (0.3-1.0); Blood Urea Nitrogen 42 mg/dL (8-23); Calcium 8.1 mg/dL (8.6-10.3); Carbon Dioxide 25 mEq/L (23-29); Chloride 120 mEq/L (98-107); Globulin 2.5 g/dL (2.4-3.5); Glucose 177 mg/dL (70-105); Osmolality,Calculated 331 (280-300); Potassium 3.4 mEq/L (3.5-5.1); Sodium 153 mEq/L (136-145); Total Protein 5.3 g/dL (6.4-8.9); eGFR For African Americans > 60 (> 60); eGFR For Non-African Americans > 60 (> 60)
[2020-05-30 05:24] LABS: VBG Ionized Calcium 1.19 mmol/L (1.15-1.35)
[2020-05-30] MEDS: Chlorhexidine Rinse 15 ML MOUTHWASH MM SCH ×2 (07:44→21:16)
[2020-05-30] MEDS: Insulin DETEMIR 100 UNIT/ML X5UNITS SQ SCH ×2 (07:45→21:13)
[2020-05-30] MEDS: Dexamethasone Sodium Phos/PF 10 MG/ML VIAL IVP SCH (07:45)
[2020-05-30] MEDS: Piperacillin/Tazobactam 3.375 GM in 0.9 % Sodium Chloride Mini Bag 100 ML IVPB SCH ×3 (07:46→23:30)
[2020-05-30] MEDS ORDERED: D5% in Water 1,000 ML IVC SCH (09:15)
[2020-05-30] MEDS: D5% in Water 500 ML IVC SCH ×2 (09:51→15:41)
[2020-05-30 12:48] LABS: BUN/Creatinine Ratio 39 (6-26); Blood Urea Nitrogen 41 mg/dL (8-23); Calcium 7.8 mg/dL (8.6-10.3); Carbon Dioxide 26 mEq/L (23-29); Chloride 121 mEq/L (98-107); Glucose 191 mg/dL (70-105); Osmolality,Calculated 333 (280-300); Potassium 3.7 mEq/L (3.5-5.1); Sodium 154 mEq/L (136-145); eGFR For African Americans > 60 (> 60); eGFR For Non-African Americans > 60 (> 60)
[2020-05-30 20:18] LABS: BUN/Creatinine Ratio 43 (6-26); Blood Urea Nitrogen 44 mg/dL (8-23); Calcium 7.9 mg/dL (8.6-10.3); Carbon Dioxide 23 mEq/L (23-29); Chloride 117 mEq/L (98-107); Glucose 262 mg/dL (70-105); Osmolality,Calculated 326 (280-300); Potassium 3.8 mEq/L (3.5-5.1); Sodium 148 mEq/L (136-145); eGFR For African Americans > 60 (> 60); eGFR For Non-African Americans > 60 (> 60)
[2020-05-31] MEDS: Artificial Tears SOLN 15 ML BOTTLE BOTH EYES SCH ×7 (00:01→23:29)
[2020-05-31] MEDS: Insulin LISPRO 300 UNITS/3 ML VIAL SQ SCH ×7 (00:01→23:49)
[2020-05-31] MEDS: Pantoprazole 40 MG in 0.9 % Sodium Chloride Mini Bag 100 ML IVC SCH ×2 (03:38→09:38)
[2020-05-31] MEDS: Dexmedetomidine HCl 400 MCG/100 ML MLS IVC SCH ×3 (03:38→20:18)
[2020-05-31] MEDS: Ipratropium 1 PUFF INHALER IH SCH ×5 (04:09→19:34)
[2020-05-31 04:27] LABS: ABG Base Excess -1 mEq/L (-2 to 3); ABG HCO3 23 mEq/L (21-27); ABG Oxygen Saturation 90 % (95-98); ABG PCO2 35 mmHg (35-45); ABG PH 7.43 pH Units (7.32-7.45); ABG PO2 57 mmHg (85-104); ABG TCO2 24 mEq/L (20-26); Blood Gas Modality ASSIST CONTROL; Blood Gas VT 400 cc
[2020-05-31 04:54] LABS: VBG Ionized Calcium 1.09 mmol/L (1.15-1.35)
[2020-05-31 05:29] LABS: Basophils % 0.2 %
[2020-05-31 05:30] LABS: Basophils # 0.1 K/mcL (0.0-0.2); Hematocrit 28.2 % (37.5-50.1); Hemoglobin 9.3 g/dL (12.9-16.9); Immature Granulocytes % 2.3 % (0-4); Lymphocytes # 1.3 K/mcL (0.6-4.6); Lymphocytes % 4.7 %; Mean Corpuscular Hemoglobin 32.2 pg (28.0-33.3); Mean Corpuscular Volume 97.6 fL (83.0-100.0); Mean Platelet Volume 12.8 fL (9.4-12.4); Monocytes # 2.3 K/mcL (0.0-1.3); Monocytes % 8.2 %; Neutrophils # 23.6 K/mcL (1.6-8.9); Nucleated Red Blood Cells 0.1 /100 WBC (0); Platelet Count 137 K/mcL (140-400); Red Blood Count 2.89 M/mcL (4.19-5.50); Red Cell Distribution Width 14.1 % (11.5-14.5); Segmented Neutrophils % 84.6 %; White Blood Count 27.9 K/mcL (4.3-11.1)
[2020-05-31 05:37] LABS: Heparin anti-factor XA UFH 0.07 IU/mL (0.30-0.70)
[2020-05-31 05:47] LABS: Large Platelets Present (Not Present); Platelet Estimate Normal (Normal)
[2020-05-31] MEDS: FentaNYL (PF) 1,000 MCG/100 ML IV.SOLN IVC SCH ×3 (05:48→21:48)
[2020-05-31 06:15] LABS: Alanine Aminotransferase 13 Units/L (7-52); Albumin 2.6 g/dL (3.5-5.7); Albumin/Globulin Ratio 1.1 (1.1-2.2); Alkaline Phosphatase 67 Units/L (34-104); Aspartate Amino Transferase 16 Units/L (13-39); BUN/Creatinine Ratio 43 (6-26); Bilirubin,Total 0.6 mg/dL (0.3-1.0); Blood Urea Nitrogen 43 mg/dL (8-23); Calcium 8.2 mg/dL (8.6-10.3); Carbon Dioxide 24 mEq/L (23-29); Chloride 118 mEq/L (98-107); Globulin 2.3 g/dL (2.4-3.5); Glucose 229 mg/dL (70-105); Magnesium 1.9 mg/dL (1.6-2.6); Osmolality,Calculated 328 (280-300); Potassium 3.2 mEq/L (3.5-5.1); Sodium 150 mEq/L (136-145); Total Protein 4.9 g/dL (6.4-8.9); eGFR For African Americans > 60 (> 60); eGFR For Non-African Americans > 60 (> 60)
[2020-05-31] MEDS: Chlorhexidine Rinse 15 ML MOUTHWASH MM SCH ×2 (07:42→20:15)
[2020-05-31] MEDS: Norepinephrine 4 MG/254 ML IV.SOLN IVC SCH (07:45)
[2020-05-31] MEDS: Insulin DETEMIR 100 UNIT/ML X5UNITS SQ SCH ×2 (07:48→20:15)
[2020-05-31] MEDS: Dexamethasone Sodium Phos/PF 10 MG/ML VIAL IVP SCH (07:49)
[2020-05-31] MEDS: Piperacillin/Tazobactam 3.375 GM in 0.9 % Sodium Chloride Mini Bag 100 ML IVPB SCH ×3 (07:49→23:29)
[2020-05-31] MEDS ORDERED: Potassium Chloride 40 MEQ/200 ML BAG IVPB PRN (15:19)
[2020-05-31] MEDS ORDERED: Potassium Phosphate 44 MEQ in 0.9 % Sodium Chloride 250 ML IVPB PRN (15:19)
[2020-05-31 17:28] LABS: Basophils % 0.2 %; Mean Platelet Volume 13.3 fL (9.4-12.4); Nucleated Red Blood Cells 0.1 /100 WBC (0)
[2020-05-31 17:31] LABS: Basophils # 0.1 K/mcL (0.0-0.2); Hematocrit 27.3 % (37.5-50.1); Hemoglobin 8.9 g/dL (12.9-16.9); Immature Granulocytes % 3.8 % (0-4); Lymphocytes % 3.3 %; Mean Corpuscular HGB Conc 32.6 g/dL (31.6-35.5); Mean Corpuscular Hemoglobin 31.3 pg (28.0-33.3); Mean Corpuscular Volume 96.1 fL (83.0-100.0); Monocytes % 5.7 %; Platelet Count 142 K/mcL (140-400); Red Blood Count 2.84 M/mcL (4.19-5.50); White Blood Count 28.9 K/mcL (4.3-11.1)
[2020-05-31 17:33] LABS: Monocytes # 1.7 K/mcL (0.0-1.3); Neutrophils # 25.1 K/mcL (1.6-8.9)
[2020-05-31 17:37] LABS: BUN/Creatinine Ratio 43 (6-26); Blood Urea Nitrogen 36 mg/dL (8-23); Calcium 8.3 mg/dL (8.6-10.3); Carbon Dioxide 27 mEq/L (23-29); Chloride 119 mEq/L (98-107); Glucose 109 mg/dL (70-105); Osmolality,Calculated 323 (280-300); Potassium 3.3 mEq/L (3.5-5.1); Sodium 152 mEq/L (136-145); eGFR For African Americans > 60 (> 60); eGFR For Non-African Americans > 60 (> 60)
[2020-05-31] MEDS: Calcium Gluconate 1gm/50mL 1 GM/50 ML BAG IVPB PRN (17:43)
[2020-05-31] MEDS: Pantoprazole 40 MG VIAL IVP SCH (17:55)
[2020-05-31 20:03] LABS: Platelet Estimate Normal (Normal); Poikilocytosis 1+ (Not Present)
[2020-05-31] MEDS: Heparin 25,000UNIT/250ML 1/2NS 25,000 UNIT/250 ML IV.SOLN IVC SCH (20:14)
[2020-05-31 22:00] LABS: VBG Ionized Calcium 1.23 mmol/L (1.15-1.35)
[2020-05-31 22:12] LABS: Magnesium 2.3 mg/dL (1.6-2.6); Phosphorous 2.9 mg/dL (2.7-4.5); Potassium 3.5 mEq/L (3.5-5.1)
[2020-05-31] MEDS ORDERED: Potassium Chloride Elixir 20 MEQ/15 ML UDC GTUBE ONE (22:29)
[2020-06-01] MEDS: *HR* Midazolam HCl 2 MG/2 ML VIAL IVP PRN ×3 (02:17→09:22)
[2020-06-01] MEDS: FentaNYL (PF) 1,000 MCG/100 ML IV.SOLN IVC SCH ×2 (03:50→09:07)
[2020-06-01] MEDS: Insulin LISPRO 300 UNITS/3 ML VIAL SQ SCH ×6 (03:51→23:21)
[2020-06-01] MEDS: Artificial Tears SOLN 15 ML BOTTLE BOTH EYES SCH ×6 (03:51→23:21)
[2020-06-01 04:05] LABS: Basophils % 0.2 %; Mean Corpuscular Volume 97.7 fL (83.0-100.0); Nucleated Red Blood Cells 0.1 /100 WBC (0)
[2020-06-01 04:06] LABS: VBG Ionized Calcium 1.23 mmol/L (1.15-1.35)
[2020-06-01 04:06] LABS: Basophils # 0.1 K/mcL (0.0-0.2); Eosinophils % 0.1 %; Hematocrit 25.5 % (37.5-50.1); Hemoglobin 8.2 g/dL (12.9-16.9); Immature Granulocytes % 4.1 % (0-4); Immature Platelets 19.8 % (1.1-6.1); Lymphocytes # 1.1 K/mcL (0.6-4.6); Lymphocytes % 3.4 %; Mean Corpuscular HGB Conc 32.2 g/dL (31.6-35.5); Mean Corpuscular Hemoglobin 31.4 pg (28.0-33.3); Mean Platelet Volume 13.4 fL (9.4-12.4); Monocytes # 2.4 K/mcL (0.0-1.3); Monocytes % 7.4 %; Neutrophils # 27.7 K/mcL (1.6-8.9); Platelet Count 140 K/mcL (140-400); Red Blood Count 2.61 M/mcL (4.19-5.50); Red Cell Distribution Width 14.1 % (11.5-14.5); Segmented Neutrophils % 84.8 %
[2020-06-01] MEDS: Ipratropium 1 PUFF INHALER IH SCH ×7 (04:13→23:41)
[2020-06-01 04:17] LABS: White Blood Count 32.7 K/mcL (4.3-11.1)
[2020-06-01 04:23] LABS: Alanine Aminotransferase 15 Units/L (7-52); Albumin 2.5 g/dL (3.5-5.7); Albumin/Globulin Ratio 1.2 (1.1-2.2); Alkaline Phosphatase 86 Units/L (34-104); Aspartate Amino Transferase 21 Units/L (13-39); BUN/Creatinine Ratio 42 (6-26); Bilirubin,Total 0.6 mg/dL (0.3-1.0); Blood Urea Nitrogen 31 mg/dL (8-23); Carbon Dioxide 26 mEq/L (23-29); Chloride 117 mEq/L (98-107); Globulin 2.1 g/dL (2.4-3.5); Glucose 134 mg/dL (70-105); Magnesium 2.3 mg/dL (1.6-2.6); Osmolality,Calculated 315 (280-300); Phosphorous 3.4 mg/dL (2.7-4.5); Potassium 4.2 mEq/L (3.5-5.1); Sodium 148 mEq/L (136-145); Total Protein 4.6 g/dL (6.4-8.9); eGFR For African Americans > 60 (> 60); eGFR For Non-African Americans > 60 (> 60)
[2020-06-01 04:46] LABS: ABG Base Excess 0 mEq/L (-2 to 3); ABG HCO3 26 mEq/L (21-27); ABG Oxygen Saturation 84 % (95-98); ABG PCO2 43 mmHg (35-45); ABG PH 7.38 pH Units (7.32-7.45); ABG PO2 49 mmHg (85-104); ABG TCO2 27 mEq/L (20-26); Blood Gas Modality ASSIST CONTROL; Blood Gas VT 400 cc
[2020-06-01] MEDS: Heparin 25,000UNIT/250ML 1/2NS 25,000 UNIT/250 ML IV.SOLN IVC SCH (04:55)
[2020-06-01] MEDS: Pantoprazole 40 MG VIAL IVP SCH ×2 (04:55→16:54)
[2020-06-01] MEDS: Dexmedetomidine HCl 400 MCG/100 ML MLS IVC SCH ×3 (04:56→18:59)
[2020-06-01 05:40] LABS: Platelet Estimate Normal (Normal)
[2020-06-01] MEDS: Insulin DETEMIR 100 UNIT/ML X5UNITS SQ SCH ×2 (07:35→21:01)
[2020-06-01] MEDS: Piperacillin/Tazobactam 3.375 GM in 0.9 % Sodium Chloride Mini Bag 100 ML IVPB SCH ×3 (07:36→23:21)
[2020-06-01] MEDS: Dexamethasone Sodium Phos/PF 10 MG/ML VIAL IVP SCH (07:36)
[2020-06-01] MEDS: Chlorhexidine Rinse 15 ML MOUTHWASH MM SCH ×2 (07:37→20:53)
[2020-06-01] MEDS: Midazolam HCl 50 MG/100 ML IV.SOLN IVC SCH ×2 (10:18→18:57)
[2020-06-01] MEDS: FentaNYL (PF) 2,500 MCG/50 ML IV.SOLN IVC SCH (14:30)
[2020-06-01] MEDS: Lactulose Oral Soln 20 GM/30 ML UDC GTUBE SCH (20:53)
[2020-06-01] MEDS: Bisacodyl 10 MG RECTAL SUPPOSITORY RC SCH (20:54)
[2020-06-02] MEDS: FentaNYL (PF) 2,500 MCG/50 ML IV.SOLN IVC SCH ×2 (02:14→16:32)
[2020-06-02] MEDS: Artificial Tears SOLN 15 ML BOTTLE BOTH EYES SCH ×6 (03:18→23:52)
[2020-06-02] MEDS: Insulin LISPRO 300 UNITS/3 ML VIAL SQ SCH ×5 (03:43→21:10)
[2020-06-02] MEDS: Dexmedetomidine HCl 400 MCG/100 ML MLS IVC SCH ×2 (03:43→11:58)
[2020-06-02 03:58] LABS: Basophils # 0.1 K/mcL (0.0-0.2); Basophils % 0.3 %; Eosinophils % 0.1 %; Hematocrit 23.1 % (37.5-50.1); Hemoglobin 7.6 g/dL (12.9-16.9); Immature Granulocytes % 3.5 % (0-4); Lymphocytes # 1.4 K/mcL (0.6-4.6); Lymphocytes % 5.1 %; Mean Corpuscular HGB Conc 32.9 g/dL (31.6-35.5); Mean Corpuscular Hemoglobin 32.3 pg (28.0-33.3); Mean Corpuscular Volume 98.3 fL (83.0-100.0); Mean Platelet Volume 13.4 fL (9.4-12.4); Monocytes # 2.3 K/mcL (0.0-1.3); Monocytes % 8.3 %; Neutrophils # 23.2 K/mcL (1.6-8.9); Nucleated Red Blood Cells 0.1 /100 WBC (0); Platelet Count 144 K/mcL (140-400); Red Blood Count 2.35 M/mcL (4.19-5.50); Red Cell Distribution Width 14.5 % (11.5-14.5); Segmented Neutrophils % 82.7 %
[2020-06-02 03:59] LABS: VBG Ionized Calcium 1.23 mmol/L (1.15-1.35)
[2020-06-02] MEDS: Midazolam HCl 50 MG/100 ML IV.SOLN IVC SCH (04:05)
[2020-06-02] MEDS: Ipratropium 1 PUFF INHALER IH SCH ×6 (04:08→23:34)
[2020-06-02 04:16] LABS: Platelet Estimate Slight Decrease (Normal); Poikilocytosis 1+ (Not Present)
[2020-06-02 04:22] LABS: ABG Base Excess 4 mEq/L (-2 to 3); ABG HCO3 30 mEq/L (21-27); ABG Oxygen Saturation 85 % (95-98); ABG PCO2 58 mmHg (35-45); ABG PH 7.33 pH Units (7.32-7.45); ABG PO2 55 mmHg (85-104); ABG TCO2 32 mEq/L (20-26); Blood Gas Modality ASSIST CONTROL; Blood Gas VT 400 cc
[2020-06-02 05:29] LABS: Alanine Aminotransferase 14 Units/L (7-52); Albumin 2.5 g/dL (3.5-5.7); Albumin/Globulin Ratio 1.3 (1.1-2.2); Alkaline Phosphatase 93 Units/L (34-104); Aspartate Amino Transferase 18 Units/L (13-39); BUN/Creatinine Ratio 39 (6-26); Bilirubin,Total 0.4 mg/dL (0.3-1.0); Blood Urea Nitrogen 27 mg/dL (8-23); Calcium 7.7 mg/dL (8.6-10.3); Carbon Dioxide 29 mEq/L (23-29); Chloride 113 mEq/L (98-107); Glucose 90 mg/dL (70-105); Magnesium 2.3 mg/dL (1.6-2.6); Osmolality,Calculated 307 (280-300); Phosphorous 3.2 mg/dL (2.7-4.5); Potassium 4.1 mEq/L (3.5-5.1); Sodium 146 mEq/L (136-145); Total Protein 4.5 g/dL (6.4-8.9); eGFR For African Americans > 60 (> 60); eGFR For Non-African Americans > 60 (> 60)
[2020-06-02] MEDS: Pantoprazole 40 MG VIAL IVP SCH ×2 (06:20→16:29)
[2020-06-02] MEDS: Piperacillin/Tazobactam 3.375 GM in 0.9 % Sodium Chloride Mini Bag 100 ML IVPB SCH ×3 (08:52→23:52)
[2020-06-02] MEDS: Dexamethasone Sodium Phos/PF 10 MG/ML VIAL IVP SCH (08:52)
[2020-06-02] MEDS: Chlorhexidine Rinse 15 ML MOUTHWASH MM SCH ×2 (08:52→20:30)
[2020-06-02] MEDS: *HR* Dextrose 50 % in Water (Vial) 50 ML VIAL IVP PRN (09:00)
[2020-06-02] MEDS: Insulin DETEMIR 100 UNIT/ML X5UNITS SQ SCH ×2 (09:42→21:10)
[2020-06-02] MEDS: Heparin 25,000UNIT/250ML 1/2NS 25,000 UNIT/250 ML IV.SOLN IVC SCH (09:50)
[2020-06-02] MEDS: *HR* Heparin 5,000 UNIT/ML VIAL IVP PRN ×2 (09:55→17:50)
[2020-06-02] MEDS: Furosemide 40 MG/4 ML VIAL IVP SCH ×2 (12:00→20:31)
[2020-06-02] MEDS: Norepinephrine 4 MG/254 ML IV.SOLN IVC SCH (12:00)
[2020-06-02] MEDS: Lactulose Oral Soln 20 GM/30 ML UDC GTUBE SCH (20:30)
[2020-06-02] MEDS: Bisacodyl 10 MG RECTAL SUPPOSITORY RC SCH (20:31)
[2020-06-03] MEDS: Insulin LISPRO 300 UNITS/3 ML VIAL SQ SCH ×6 (00:42→20:58)
[2020-06-03] MEDS: Dexmedetomidine HCl 400 MCG/100 ML MLS IVC SCH ×2 (02:54→19:28)
[2020-06-03 03:44] LABS: VBG Ionized Calcium 1.14 mmol/L (1.15-1.35)
[2020-06-03 03:54] LABS: Eosinophils % 0.1 %; Red Cell Distribution Width 14.1 % (11.5-14.5)
[2020-06-03 03:55] LABS: Basophils # 0.1 K/mcL (0.0-0.2); Basophils % 0.4 %; Hematocrit 21.7 % (37.5-50.1); Immature Granulocytes % 3.7 % (0-4); Immature Platelets 19.1 % (1.1-6.1); Lymphocytes # 1.4 K/mcL (0.6-4.6); Lymphocytes % 4.6 %; Mean Corpuscular HGB Conc 32.3 g/dL (31.6-35.5); Mean Corpuscular Hemoglobin 31.3 pg (28.0-33.3); Mean Corpuscular Volume 96.9 fL (83.0-100.0); Mean Platelet Volume 13.8 fL (9.4-12.4); Monocytes # 2.4 K/mcL (0.0-1.3); Monocytes % 7.5 %; Neutrophils # 26.3 K/mcL (1.6-8.9); Nucleated Red Blood Cells 0.1 /100 WBC (0); Platelet Count 169 K/mcL (140-400); Red Blood Count 2.24 M/mcL (4.19-5.50); Segmented Neutrophils % 83.7 %
[2020-06-03] MEDS: Artificial Tears SOLN 15 ML BOTTLE BOTH EYES SCH ×6 (04:00→23:39)
[2020-06-03 04:04] LABS: Alanine Aminotransferase 17 Units/L (7-52); Albumin 2.4 g/dL (3.5-5.7); Albumin/Globulin Ratio 1.1 (1.1-2.2); Alkaline Phosphatase 89 Units/L (34-104); Aspartate Amino Transferase 16 Units/L (13-39); BUN/Creatinine Ratio 49 (6-26); Bilirubin,Total 0.4 mg/dL (0.3-1.0); Blood Urea Nitrogen 39 mg/dL (8-23); Calcium 7.8 mg/dL (8.6-10.3); Carbon Dioxide 31 mEq/L (23-29); Chloride 104 mEq/L (98-107); Globulin 2.2 g/dL (2.4-3.5); Glucose 160 mg/dL (70-105); Magnesium 2.2 mg/dL (1.6-2.6); Osmolality,Calculated 309 (280-300); Phosphorous 3.5 mg/dL (2.7-4.5); Sodium 143 mEq/L (136-145); Total Protein 4.6 g/dL (6.4-8.9); eGFR For African Americans > 60 (> 60); eGFR For Non-African Americans > 60 (> 60)
[2020-06-03] MEDS: Ipratropium 1 PUFF INHALER IH SCH ×6 (04:04→23:43)
[2020-06-03 04:13] LABS: ABG Base Excess 5 mEq/L (-2 to 3); ABG HCO3 30 mEq/L (21-27); ABG Oxygen Saturation 94 % (95-98); ABG PCO2 47 mmHg (35-45); ABG PH 7.42 pH Units (7.32-7.45); ABG PO2 72 mmHg (85-104); ABG TCO2 32 mEq/L (20-26); Blood Gas Modality ASSIST CONTROL; Blood Gas VT 400 cc
[2020-06-03 04:28] LABS: White Blood Count 31.4 K/mcL (4.3-11.1)
[2020-06-03] MEDS: Pantoprazole 40 MG VIAL IVP SCH ×3 (05:22→17:30)
[2020-06-03] MEDS: *HR* Heparin 5,000 UNIT/ML VIAL IVP PRN (06:22)
[2020-06-03] MEDS: Piperacillin/Tazobactam 3.375 GM in 0.9 % Sodium Chloride Mini Bag 100 ML IVPB SCH ×2 (07:49→16:55)
[2020-06-03] MEDS: Furosemide 40 MG/4 ML VIAL IVP SCH (07:49)
[2020-06-03] MEDS: Dexamethasone Sodium Phos/PF 10 MG/ML VIAL IVP SCH (07:50)
[2020-06-03] MEDS: Chlorhexidine Rinse 15 ML MOUTHWASH MM SCH ×2 (07:50→20:58)
[2020-06-03] MEDS: Insulin DETEMIR 100 UNIT/ML X5UNITS SQ SCH ×2 (08:50→21:00)
[2020-06-03] MEDS ORDERED: 0.9 % Sodium Chloride 500 ML ONE (09:38)
[2020-06-03] MEDS: Norepinephrine 4 MG/254 ML IV.SOLN IVC SCH (10:51)
[2020-06-03] MEDS: FentaNYL (PF) 2,500 MCG/50 ML IV.SOLN IVC SCH (12:52)
[2020-06-03 18:09] LABS: Hematocrit 28.9 % (37.5-50.1)
[2020-06-03 18:10] LABS: Hemoglobin 9.7 g/dL (12.9-16.9)
[2020-06-03] MEDS: Bisacodyl 10 MG RECTAL SUPPOSITORY RC SCH (20:58)
[2020-06-03] MEDS: Lactulose Oral Soln 20 GM/30 ML UDC GTUBE SCH (20:58)
[2020-06-04] MEDS: Insulin LISPRO 300 UNITS/3 ML VIAL SQ SCH ×7 (01:11→23:59)
[2020-06-04] MEDS: *HR* Heparin 5,000 UNIT/ML VIAL SQ SCH ×2 (01:51→07:59)
[2020-06-04] MEDS: Ipratropium 1 PUFF INHALER IH SCH ×5 (03:19→19:49)
[2020-06-04 03:30] LABS: ABG Base Excess 6 mEq/L (-2 to 3); ABG HCO3 31 mEq/L (21-27); ABG Oxygen Saturation 91 % (95-98); ABG PCO2 44 mmHg (35-45); ABG PH 7.45 pH Units (7.32-7.45); ABG PO2 58 mmHg (85-104); ABG TCO2 32 mEq/L (20-26); Blood Gas Modality ASSIST CONTROL; Blood Gas VT 400 cc
[2020-06-04] MEDS: Artificial Tears SOLN 15 ML BOTTLE BOTH EYES SCH ×6 (04:56→23:31)
[2020-06-04 05:18] LABS: Hematocrit 28.7 % (37.5-50.1); Hemoglobin 9.8 g/dL (12.9-16.9); Mean Corpuscular HGB Conc 34.1 g/dL (31.6-35.5); Nucleated Red Blood Cells 0.1 /100 WBC (0)
[2020-06-04 05:34] LABS: Mean Corpuscular Hemoglobin 32.1 pg (28.0-33.3); Mean Corpuscular Volume 94.1 fL (83.0-100.0); Mean Platelet Volume 12.8 fL (9.4-12.4); Platelet Count 204 K/mcL (140-400); Red Blood Count 3.05 M/mcL (4.19-5.50); Red Cell Distribution Width 14.4 % (11.5-14.5)
[2020-06-04 05:36] LABS: White Blood Count 36.6 K/mcL (4.3-11.1)
[2020-06-04 05:46] LABS: VBG Ionized Calcium 1.14 mmol/L (1.15-1.35)
[2020-06-04 06:28] LABS: Lymphocytes # 4.4 K/mcL (0.6-4.6); Monocytes # 1.5 K/mcL (0.0-1.3); Neutrophils # 30.7 K/mcL (1.6-8.9); Platelet Estimate Normal (Normal); Reactive Lymphocytes Present (Not Present)
[2020-06-04 06:38] LABS: Alanine Aminotransferase 16 Units/L (7-52); Albumin 2.6 g/dL (3.5-5.7); Albumin/Globulin Ratio 1.1 (1.1-2.2); Alkaline Phosphatase 91 Units/L (34-104); Aspartate Amino Transferase 19 Units/L (13-39); BUN/Creatinine Ratio 65 (6-26); Bilirubin,Total 0.4 mg/dL (0.3-1.0); Blood Urea Nitrogen 39 mg/dL (8-23); Calcium 8.3 mg/dL (8.6-10.3); Carbon Dioxide 33 mEq/L (23-29); Chloride 103 mEq/L (98-107); Globulin 2.4 g/dL (2.4-3.5); Glucose 141 mg/dL (70-105); Magnesium 2.1 mg/dL (1.6-2.6); Osmolality,Calculated 306 (280-300); Phosphorous 2.3 mg/dL (2.7-4.5); Potassium 3.1 mEq/L (3.5-5.1); Sodium 142 mEq/L (136-145); eGFR For African Americans > 60 (> 60); eGFR For Non-African Americans > 60 (> 60)
[2020-06-04] MEDS: Chlorhexidine Rinse 15 ML MOUTHWASH MM SCH ×2 (07:58→20:11)
[2020-06-04] MEDS: Dexamethasone Sodium Phos/PF 10 MG/ML VIAL IVP SCH (07:59)
[2020-06-04] MEDS: Insulin DETEMIR 100 UNIT/ML X5UNITS SQ SCH ×2 (08:40→20:11)
[2020-06-04] MEDS ORDERED: *HR* Heparin 5,000 UNIT/ML VIAL IVP PRN (09:17)
[2020-06-04] MEDS: Midazolam HCl 50 MG/100 ML IV.SOLN IVC SCH (10:53)
[2020-06-04 11:16] LABS: Prothrombin Time 11.6 Seconds (9.4-12.1)
[2020-06-04 11:19] LABS: Heparin anti-factor XA UFH 0.04 IU/mL (0.30-0.70)
[2020-06-04] MEDS: Norepinephrine 4 MG/254 ML IV.SOLN IVC SCH (12:08)
[2020-06-04] MEDS: Heparin 25,000UNIT/250ML 1/2NS 25,000 UNIT/250 ML IV.SOLN IVC SCH (13:10)
[2020-06-04] MEDS: Dexmedetomidine HCl 400 MCG/100 ML MLS IVC SCH (13:24)
[2020-06-04] MEDS: FentaNYL (PF) 2,500 MCG/50 ML IV.SOLN IVC SCH (14:27)
[2020-06-04] MEDS: Piperacillin/Tazobactam 3.375 GM in 0.9 % Sodium Chloride Mini Bag 100 ML IVPB SCH ×2 (17:28→23:31)
[2020-06-04] MEDS: Furosemide 40 MG/4 ML VIAL IVP SCH (17:35)
[2020-06-04] MEDS: Pantoprazole 40 MG VIAL IVP SCH (17:36)
[2020-06-04] MEDS: Lactulose Oral Soln 20 GM/30 ML UDC GTUBE SCH (20:11)
[2020-06-04] MEDS: Potassium Chloride Elixir 20 MEQ/15 ML UDC GTUBE SCH (20:12)
[2020-06-04] MEDS: Bisacodyl 10 MG RECTAL SUPPOSITORY RC SCH (20:12)
[2020-06-04 23:21] LABS: VBG Ionized Calcium 1.05 mmol/L (1.15-1.35)
[2020-06-04 23:50] LABS: Alanine Aminotransferase 17 Units/L (7-52); Albumin 2.8 g/dL (3.5-5.7); Albumin/Globulin Ratio 1.1 (1.1-2.2); Alkaline Phosphatase 108 Units/L (34-104); Aspartate Amino Transferase 20 Units/L (13-39); BUN/Creatinine Ratio 59 (6-26); Bilirubin,Total 0.4 mg/dL (0.3-1.0); Blood Urea Nitrogen 39 mg/dL (8-23); Calcium 8.2 mg/dL (8.6-10.3); Carbon Dioxide 30 mEq/L (23-29); Chloride 99 mEq/L (98-107); Globulin 2.6 g/dL (2.4-3.5); Glucose 183 mg/dL (70-105); Magnesium 2.2 mg/dL (1.6-2.6); Osmolality,Calculated 302 (280-300); Phosphorous 2.5 mg/dL (2.7-4.5); Potassium 4.3 mEq/L (3.5-5.1); Sodium 139 mEq/L (136-145); Total Protein 5.4 g/dL (6.4-8.9); eGFR For African Americans > 60 (> 60); eGFR For Non-African Americans > 60 (> 60)
[2020-06-05] MEDS: Calcium Gluconate 1gm/50mL 1 GM/50 ML BAG IVPB PRN
[2020-06-05] MEDS: Ipratropium 1 PUFF INHALER IH SCH ×7 (00:56→23:59)
[2020-06-05] MEDS: Artificial Tears SOLN 15 ML BOTTLE BOTH EYES SCH ×6 (04:13→23:33)
[2020-06-05 04:17] LABS: ABG Base Excess 8 mEq/L (-2 to 3); ABG HCO3 33 mEq/L (21-27); ABG Oxygen Saturation 89 % (95-98); ABG PCO2 48 mmHg (35-45); ABG PH 7.44 pH Units (7.32-7.45); ABG PO2 54 mmHg (85-104); ABG TCO2 34 mEq/L (20-26); Blood Gas Modality ASSIST CONTROL; Blood Gas VT 400 cc
[2020-06-05] MEDS: Dexmedetomidine HCl 400 MCG/100 ML MLS IVC SCH ×2 (04:17→17:16)
[2020-06-05 04:34] LABS: Hematocrit 30.7 % (37.5-50.1); Mean Corpuscular HGB Conc 32.6 g/dL (31.6-35.5); Mean Corpuscular Hemoglobin 30.7 pg (28.0-33.3); Mean Corpuscular Volume 94.2 fL (83.0-100.0); Nucleated Red Blood Cells 0.5 /100 WBC (0); Platelet Count 246 K/mcL (140-400); Red Blood Count 3.26 M/mcL (4.19-5.50)
[2020-06-05 04:38] LABS: INR 1.1; Prothrombin Time 12.5 Seconds (9.4-12.1)
[2020-06-05 04:40] LABS: Activated Partial Thrombo Time 28.3 Seconds (26.0-36.0)
[2020-06-05 04:48] LABS: White Blood Count 31.6 K/mcL (4.3-11.1)
[2020-06-05 04:53] LABS: Alanine Aminotransferase 15 Units/L (7-52); Albumin 2.6 g/dL (3.5-5.7); Albumin/Globulin Ratio 1.1 (1.1-2.2); Alkaline Phosphatase 99 Units/L (34-104); Aspartate Amino Transferase 19 Units/L (13-39); BUN/Creatinine Ratio 57 (6-26); Bilirubin,Total 0.4 mg/dL (0.3-1.0); Blood Urea Nitrogen 38 mg/dL (8-23); Calcium 8.2 mg/dL (8.6-10.3); Carbon Dioxide 33 mEq/L (23-29); Chloride 101 mEq/L (98-107); Globulin 2.4 g/dL (2.4-3.5); Glucose 98 mg/dL (70-105); Magnesium 2.3 mg/dL (1.6-2.6); Osmolality,Calculated 301 (280-300); Phosphorous 3.2 mg/dL (2.7-4.5); Sodium 141 mEq/L (136-145); eGFR For African Americans > 60 (> 60); eGFR For Non-African Americans > 60 (> 60)
[2020-06-05] MEDS: Insulin LISPRO 300 UNITS/3 ML VIAL SQ SCH ×6 (04:54→23:33)
[2020-06-05] MEDS: Pantoprazole 40 MG VIAL IVP SCH ×2 (05:01→17:42)
[2020-06-05 05:29] LABS: Lymphocytes # 5.1 K/mcL (0.6-4.6); Monocytes # 1.3 K/mcL (0.0-1.3)
[2020-06-05 05:30] LABS: Polychromasia 1+ (Not Present)
[2020-06-05 05:31] LABS: Basophilic Stippling 1+ (Not Present); Platelet Estimate Normal (Normal); Reactive Lymphocytes Present (Not Present)
[2020-06-05] MEDS: Potassium Chloride Elixir 20 MEQ/15 ML UDC GTUBE SCH ×2 (08:33→20:22)
[2020-06-05] MEDS: Piperacillin/Tazobactam 3.375 GM in 0.9 % Sodium Chloride Mini Bag 100 ML IVPB SCH (08:35)
[2020-06-05] MEDS: Chlorhexidine Rinse 15 ML MOUTHWASH MM SCH ×2 (08:35→20:22)
[2020-06-05] MEDS: Furosemide 40 MG/4 ML VIAL IVP SCH ×2 (08:35→17:11)
[2020-06-05] MEDS: Heparin 25,000UNIT/250ML 1/2NS 25,000 UNIT/250 ML IV.SOLN IVC SCH ×2 (08:36→11:01)
[2020-06-05] MEDS: Insulin DETEMIR 100 UNIT/ML X5UNITS SQ SCH ×2 (09:09→20:53)
[2020-06-05] MEDS: Midazolam HCl 50 MG/100 ML IV.SOLN IVC SCH ×2 (10:58→12:30)
[2020-06-05] MEDS: Norepinephrine 4 MG/254 ML IV.SOLN IVC SCH (10:58)
[2020-06-05] MEDS: Meropenem 1,000 MG in Water for inj. (sterile) 20 ML IVP SCH ×2 (15:08→23:33)
[2020-06-05] MEDS: FentaNYL (PF) 2,500 MCG/50 ML IV.SOLN IVC SCH (17:18)
[2020-06-05] MEDS: Doxycycline 100 MG in 0.9 % Sodium Chloride Mini Bag 100 ML IVPB SCH (17:42)
[2020-06-05] MEDS ORDERED: Meropenem 1,000 MG in Water for inj. (sterile) 20 ML IVP SCH (18:00)
[2020-06-05] MEDS: Docusate Oral Soln 100 MG/10 ML UDC GTUBE SCH (20:22)
[2020-06-05] MEDS: Bisacodyl 10 MG RECTAL SUPPOSITORY RC SCH (20:22)
[2020-06-05] MEDS: Lactulose Oral Soln 20 GM/30 ML UDC GTUBE SCH (20:22)
[2020-06-06] MEDS: Ipratropium 1 PUFF INHALER IH SCH ×5 (03:31→23:19)
[2020-06-06 04:05] LABS: VBG Ionized Calcium 1.09 mmol/L (1.15-1.35)
[2020-06-06 04:05] LABS: Hematocrit 31.3 % (37.5-50.1); Hemoglobin 10.1 g/dL (12.9-16.9); Mean Corpuscular HGB Conc 32.3 g/dL (31.6-35.5); Mean Corpuscular Hemoglobin 30.7 pg (28.0-33.3); Mean Corpuscular Volume 95.1 fL (83.0-100.0); Mean Platelet Volume 11.8 fL (9.4-12.4); Nucleated Red Blood Cells 1.7 /100 WBC (0); Platelet Count 240 K/mcL (140-400); Red Blood Count 3.29 M/mcL (4.19-5.50); Red Cell Distribution Width 13.9 % (11.5-14.5); White Blood Count 23.5 K/mcL (4.3-11.1)
[2020-06-06 04:13] LABS: INR 1.2; Prothrombin Time 13.3 Seconds (9.4-12.1)
[2020-06-06 04:19] LABS: ABG Base Excess 9 mEq/L (-2 to 3); ABG HCO3 34 mEq/L (21-27); ABG Oxygen Saturation 91 % (95-98); ABG PCO2 51 mmHg (35-45); ABG PH 7.44 pH Units (7.32-7.45); ABG PO2 59 mmHg (85-104); ABG TCO2 36 mEq/L (20-26); Blood Gas VT 400 cc
[2020-06-06 04:19] LABS: Activated Partial Thrombo Time 45.7 Seconds (26.0-36.0)
[2020-06-06 04:22] LABS: Alanine Aminotransferase 21 Units/L (7-52); Albumin 2.7 g/dL (3.5-5.7); Alkaline Phosphatase 96 Units/L (34-104); Aspartate Amino Transferase 21 Units/L (13-39); BUN/Creatinine Ratio 74 (6-26); Bilirubin,Total 0.4 mg/dL (0.3-1.0); Blood Urea Nitrogen 45 mg/dL (8-23); Calcium 8.3 mg/dL (8.6-10.3); Carbon Dioxide 35 mEq/L (23-29); Chloride 100 mEq/L (98-107); Globulin 2.7 g/dL (2.4-3.5); Glucose 97 mg/dL (70-105); Magnesium 2.3 mg/dL (1.6-2.6); Osmolality,Calculated 303 (280-300); Phosphorous 3.6 mg/dL (2.7-4.5); Sodium 141 mEq/L (136-145); Total Protein 5.4 g/dL (6.4-8.9); eGFR For African Americans > 60 (> 60); eGFR For Non-African Americans > 60 (> 60)
[2020-06-06] MEDS: Artificial Tears SOLN 15 ML BOTTLE BOTH EYES SCH ×6 (04:34→23:19)
[2020-06-06] MEDS: Insulin LISPRO 300 UNITS/3 ML VIAL SQ SCH ×5 (04:34→21:34)
[2020-06-06 04:44] LABS: Eosinophils # 0.9 K/mcL (0.0-0.6); Lymphocytes # 2.4 K/mcL (0.6-4.6); Monocytes # 1.9 K/mcL (0.0-1.3); Neutrophils # 17.9 K/mcL (1.6-8.9); Platelet Estimate Normal (Normal); Reactive Lymphocytes Present (Not Present)
[2020-06-06] MEDS: Pantoprazole 40 MG VIAL IVP SCH ×2 (04:50→18:53)
[2020-06-06] MEDS: Doxycycline 100 MG in 0.9 % Sodium Chloride Mini Bag 100 ML IVPB SCH ×2 (05:48→18:59)
[2020-06-06] MEDS: FentaNYL (PF) 2,500 MCG/50 ML IV.SOLN IVC SCH (05:59)
[2020-06-06] MEDS: Midazolam HCl 50 MG/100 ML IV.SOLN IVC SCH (07:45)
[2020-06-06] MEDS: Meropenem 1,000 MG in Water for inj. (sterile) 20 ML IVP SCH ×3 (09:48→23:19)
[2020-06-06] MEDS: Furosemide 40 MG/4 ML VIAL IVP SCH (09:49)
[2020-06-06] MEDS: Chlorhexidine Rinse 15 ML MOUTHWASH MM SCH ×2 (09:49→19:49)
[2020-06-06] MEDS: Docusate Oral Soln 100 MG/10 ML UDC GTUBE SCH ×2 (09:49→19:49)
[2020-06-06] MEDS: Potassium Chloride Elixir 20 MEQ/15 ML UDC GTUBE SCH ×2 (09:49→19:50)
[2020-06-06] MEDS: Insulin DETEMIR 100 UNIT/ML X5UNITS SQ SCH ×2 (09:52→21:35)
[2020-06-06] MEDS: Dexmedetomidine HCl 400 MCG/100 ML MLS IVC SCH ×2 (12:15→22:32)
[2020-06-06] MEDS: Heparin 25,000UNIT/250ML 1/2NS 25,000 UNIT/250 ML IV.SOLN IVC SCH (12:17)
[2020-06-06] MEDS: Norepinephrine 4 MG/254 ML IV.SOLN IVC SCH (12:23)
[2020-06-06] MEDS: Bisacodyl 10 MG RECTAL SUPPOSITORY RC SCH (19:49)
[2020-06-06] MEDS: Lactulose Oral Soln 20 GM/30 ML UDC GTUBE SCH (19:49)
[2020-06-07] MEDS: Insulin LISPRO 300 UNITS/3 ML VIAL SQ SCH ×7 (00:45→23:54)
[2020-06-07] MEDS: FentaNYL (PF) 2,500 MCG/50 ML IV.SOLN IVC SCH ×2 (00:52→17:02)
[2020-06-07] MEDS: Midazolam HCl 50 MG/100 ML IV.SOLN IVC SCH ×2 (02:07→21:16)
[2020-06-07] MEDS: Ipratropium 1 PUFF INHALER IH SCH ×6 (03:36→23:31)
[2020-06-07] MEDS: Artificial Tears SOLN 15 ML BOTTLE BOTH EYES SCH ×6 (03:58→23:53)
[2020-06-07 04:10] LABS: Hematocrit 31.7 % (37.5-50.1); Hemoglobin 10.3 g/dL (12.9-16.9); Mean Corpuscular HGB Conc 32.5 g/dL (31.6-35.5); Mean Corpuscular Hemoglobin 31.3 pg (28.0-33.3); Mean Corpuscular Volume 96.4 fL (83.0-100.0); Mean Platelet Volume 11.7 fL (9.4-12.4); Platelet Count 288 K/mcL (140-400); Red Blood Count 3.29 M/mcL (4.19-5.50); White Blood Count 21.8 K/mcL (4.3-11.1)
[2020-06-07 04:21] LABS: ABG Base Excess 7 mEq/L (-2 to 3); ABG HCO3 32 mEq/L (21-27); ABG Oxygen Saturation 91 % (95-98); ABG PCO2 49 mmHg (35-45); ABG PH 7.43 pH Units (7.32-7.45); ABG PO2 62 mmHg (85-104); ABG TCO2 34 mEq/L (20-26); Blood Gas VT 400 cc
[2020-06-07 04:43] LABS: Alanine Aminotransferase 17 Units/L (7-52); Albumin 2.7 g/dL (3.5-5.7); Albumin/Globulin Ratio 0.9 (1.1-2.2); Alkaline Phosphatase 89 Units/L (34-104); Aspartate Amino Transferase 21 Units/L (13-39); BUN/Creatinine Ratio 56 (6-26); Bilirubin,Total 0.5 mg/dL (0.3-1.0); Blood Urea Nitrogen 40 mg/dL (8-23); Calcium 8.6 mg/dL (8.6-10.3); Carbon Dioxide 32 mEq/L (23-29); Chloride 101 mEq/L (98-107); Globulin 3.1 g/dL (2.4-3.5); Glucose 165 mg/dL (70-105); Magnesium 2.6 mg/dL (1.6-2.6); Osmolality,Calculated 301 (280-300); Phosphorous 3.5 mg/dL (2.7-4.5); Potassium 5.6 mEq/L (3.5-5.1); Sodium 139 mEq/L (136-145); Total Protein 5.8 g/dL (6.4-8.9); eGFR For African Americans > 60 (> 60); eGFR For Non-African Americans > 60 (> 60)
[2020-06-07] MEDS: Pantoprazole 40 MG VIAL IVP SCH ×2 (05:37→17:01)
[2020-06-07] MEDS: Doxycycline 100 MG in 0.9 % Sodium Chloride Mini Bag 100 ML IVPB SCH ×2 (05:37→17:01)
[2020-06-07] MEDS: Docusate Oral Soln 100 MG/10 ML UDC GTUBE SCH ×2 (07:54→19:40)
[2020-06-07] MEDS: Chlorhexidine Rinse 15 ML MOUTHWASH MM SCH ×2 (07:54→19:40)
[2020-06-07] MEDS: Insulin DETEMIR 100 UNIT/ML X5UNITS SQ SCH ×2 (07:56→20:15)
[2020-06-07] MEDS: Meropenem 1,000 MG in Water for inj. (sterile) 20 ML IVP SCH ×3 (07:59→22:35)
[2020-06-07] MEDS: Heparin 25,000UNIT/250ML 1/2NS 25,000 UNIT/250 ML IV.SOLN IVC SCH (08:12)
[2020-06-07] MEDS: Potassium Chloride Elixir 20 MEQ/15 ML UDC GTUBE SCH (08:12)
[2020-06-07] MEDS: Norepinephrine 4 MG/254 ML IV.SOLN IVC SCH ×2 (08:12→18:47)
[2020-06-07] MEDS: Leptospermum Honey Gel 44 ML TUBE TP SCH (11:38)
[2020-06-07] MEDS ORDERED: Furosemide 40 MG/4 ML VIAL IVP ONE (11:41)
[2020-06-07] MEDS: Dexmedetomidine HCl 400 MCG/100 ML MLS IVC SCH ×2 (12:15→22:35)
[2020-06-07] MEDS: Lactulose Oral Soln 20 GM/30 ML UDC GTUBE SCH (19:40)
[2020-06-07] MEDS: Bisacodyl 10 MG RECTAL SUPPOSITORY RC SCH (19:40)
[2020-06-07] MEDS: Acetaminophen 325 MG TABLET PO PRN (23:38)
[2020-06-08] MEDS: Heparin 25,000UNIT/250ML 1/2NS 25,000 UNIT/250 ML IV.SOLN IVC SCH (03:27)
[2020-06-08] MEDS: Ipratropium 1 PUFF INHALER IH SCH ×6 (04:01→23:45)
[2020-06-08] MEDS: Artificial Tears SOLN 15 ML BOTTLE BOTH EYES SCH ×6 (04:12→23:57)
[2020-06-08] MEDS: Insulin LISPRO 300 UNITS/3 ML VIAL SQ SCH ×5 (04:13→21:38)
[2020-06-08 04:25] LABS: ABG Base Excess 7 mEq/L (-2 to 3); ABG HCO3 35 mEq/L (21-27); ABG Oxygen Saturation 87 % (95-98); ABG PCO2 65 mmHg (35-45); ABG PH 7.34 pH Units (7.32-7.45); ABG PO2 58 mmHg (85-104); ABG TCO2 37 mEq/L (20-26); Blood Gas Modality ASSIST CONTROL; Blood Gas VT 400 cc
[2020-06-08 04:33] LABS: VBG Ionized Calcium 1.12 mmol/L (1.15-1.35)
[2020-06-08 04:35] LABS: Basophils # 0.1 K/mcL (0.0-0.2); Basophils % 0.3 %; Eosinophils # 0.2 K/mcL (0.0-0.6); Eosinophils % 0.8 %; Hematocrit 31.3 % (37.5-50.1); Hemoglobin 10.1 g/dL (12.9-16.9); Immature Granulocytes % 3.4 % (0-4); Lymphocytes # 1.5 K/mcL (0.6-4.6); Lymphocytes % 7.8 %; Mean Corpuscular HGB Conc 32.3 g/dL (31.6-35.5); Mean Corpuscular Hemoglobin 32.1 pg (28.0-33.3); Mean Corpuscular Volume 99.4 fL (83.0-100.0); Mean Platelet Volume 11.7 fL (9.4-12.4); Monocytes # 1.4 K/mcL (0.0-1.3); Monocytes % 7.1 %; Neutrophils # 15.5 K/mcL (1.6-8.9); Nucleated Red Blood Cells 0.4 /100 WBC (0); Platelet Count 305 K/mcL (140-400); Red Blood Count 3.15 M/mcL (4.19-5.50); Red Cell Distribution Width 13.9 % (11.5-14.5); Segmented Neutrophils % 80.6 %; White Blood Count 19.3 K/mcL (4.3-11.1)
[2020-06-08 04:54] LABS: Alanine Aminotransferase 39 Units/L (7-52); Albumin 2.8 g/dL (3.5-5.7); Albumin/Globulin Ratio 0.8 (1.1-2.2); Alkaline Phosphatase 84 Units/L (34-104); Aspartate Amino Transferase 45 Units/L (13-39); BUN/Creatinine Ratio 59 (6-26); Bilirubin,Total 0.4 mg/dL (0.3-1.0); Blood Urea Nitrogen 44 mg/dL (8-23); Calcium 8.6 mg/dL (8.6-10.3); Carbon Dioxide 34 mEq/L (23-29); Chloride 100 mEq/L (98-107); Globulin 3.5 g/dL (2.4-3.5); Glucose 234 mg/dL (70-105); Magnesium 2.6 mg/dL (1.6-2.6); Osmolality,Calculated 305 (280-300); Potassium 4.9 mEq/L (3.5-5.1); Sodium 138 mEq/L (136-145); Total Protein 6.3 g/dL (6.4-8.9); eGFR For African Americans > 60 (> 60); eGFR For Non-African Americans > 60 (> 60)
[2020-06-08] MEDS: Doxycycline 100 MG in 0.9 % Sodium Chloride Mini Bag 100 ML IVPB SCH ×2 (05:55→17:09)
[2020-06-08] MEDS: Pantoprazole 40 MG VIAL IVP SCH ×2 (05:57→17:09)
[2020-06-08] MEDS: Norepinephrine 4 MG/254 ML IV.SOLN IVC SCH ×2 (07:52→22:15)
[2020-06-08] MEDS: FentaNYL (PF) 2,500 MCG/50 ML IV.SOLN IVC SCH ×2 (07:53→20:53)
[2020-06-08] MEDS: Docusate Oral Soln 100 MG/10 ML UDC GTUBE SCH ×2 (08:37→20:49)
[2020-06-08] MEDS: Chlorhexidine Rinse 15 ML MOUTHWASH MM SCH ×2 (08:37→20:49)
[2020-06-08] MEDS: Meropenem 1,000 MG in Water for inj. (sterile) 20 ML IVP SCH ×2 (08:42→15:16)
[2020-06-08] MEDS: Acetaminophen 325 MG TABLET PO PRN ×2 (09:30→15:50)
[2020-06-08] MEDS: Insulin DETEMIR 100 UNIT/ML X5UNITS SQ SCH ×2 (11:10→20:53)
[2020-06-08] MEDS: Furosemide 20 MG/2 ML VIAL IVP SCH ×2 (12:32→15:16)
[2020-06-08] MEDS: Midazolam HCl 50 MG/100 ML IV.SOLN IVC SCH (13:00)
[2020-06-08] MEDS: Leptospermum Honey Gel 44 ML TUBE TP SCH (17:43)
[2020-06-08] MEDS: Dexmedetomidine HCl 400 MCG/100 ML MLS IVC SCH (17:57)
[2020-06-08] MEDS: Lactulose Oral Soln 20 GM/30 ML UDC GTUBE SCH (20:50)
[2020-06-08] MEDS: Bisacodyl 10 MG RECTAL SUPPOSITORY RC SCH (20:50)
[2020-06-09] MEDS: Meropenem 1,000 MG in Water for inj. (sterile) 20 ML IVP SCH ×3 (00:02→16:36)
[2020-06-09] MEDS: Insulin LISPRO 300 UNITS/3 ML VIAL SQ SCH ×6 (00:37→21:40)
[2020-06-09] MEDS: Acetaminophen 325 MG TABLET PO PRN ×2 (00:38→12:14)
[2020-06-09] MEDS: *HR* Heparin 5,000 UNIT/ML VIAL IVP PRN ×2 (01:49→19:02)
[2020-06-09] MEDS: Heparin 25,000UNIT/250ML 1/2NS 25,000 UNIT/250 ML IV.SOLN IVC SCH ×2 (02:00→21:43)
[2020-06-09] MEDS: Ipratropium 1 PUFF INHALER IH SCH ×6 (03:19→23:29)
[2020-06-09] MEDS: Artificial Tears SOLN 15 ML BOTTLE BOTH EYES SCH ×5 (04:00→21:40)
[2020-06-09 04:40] LABS: ABG Base Excess 9 mEq/L (-2 to 3); ABG HCO3 38 mEq/L (21-27); ABG Oxygen Saturation 89 % (95-98); ABG PCO2 84 mmHg (35-45); ABG PH 7.27 pH Units (7.32-7.45); ABG PO2 68 mmHg (85-104); ABG TCO2 41 mEq/L (20-26); Blood Gas Modality AF; Blood Gas VT 440 cc
[2020-06-09 05:04] LABS: Basophils # 0.1 K/mcL (0.0-0.2); Basophils % 0.3 %; Eosinophils # 0.1 K/mcL (0.0-0.6); Eosinophils % 0.5 %; Hematocrit 28.9 % (37.5-50.1); Hemoglobin 9.2 g/dL (12.9-16.9); Immature Granulocytes % 1.4 % (0-4); Lymphocytes # 1.6 K/mcL (0.6-4.6); Lymphocytes % 6.8 %; Mean Corpuscular HGB Conc 31.8 g/dL (31.6-35.5); Mean Corpuscular Hemoglobin 31.9 pg (28.0-33.3); Mean Corpuscular Volume 100.3 fL (83.0-100.0); Mean Platelet Volume 11.3 fL (9.4-12.4); Monocytes # 1.5 K/mcL (0.0-1.3); Monocytes % 6.8 %; Neutrophils # 19.2 K/mcL (1.6-8.9); Platelet Count 276 K/mcL (140-400); Red Blood Count 2.88 M/mcL (4.19-5.50); Red Cell Distribution Width 13.6 % (11.5-14.5); Segmented Neutrophils % 84.2 %; White Blood Count 22.8 K/mcL (4.3-11.1)
[2020-06-09 05:11] LABS: VBG Ionized Calcium 1.14 mmol/L (1.15-1.35)
[2020-06-09 05:21] LABS: Alanine Aminotransferase 32 Units/L (7-52); Albumin 2.7 g/dL (3.5-5.7); Albumin/Globulin Ratio 0.8 (1.1-2.2); Alkaline Phosphatase 72 Units/L (34-104); Aspartate Amino Transferase 25 Units/L (13-39); BUN/Creatinine Ratio 80 (6-26); Bilirubin,Total 0.3 mg/dL (0.3-1.0); Blood Urea Nitrogen 52 mg/dL (8-23); Calcium 8.6 mg/dL (8.6-10.3); Carbon Dioxide 37 mEq/L (23-29); Chloride 102 mEq/L (98-107); Globulin 3.4 g/dL (2.4-3.5); Glucose 116 mg/dL (70-105); Magnesium 2.6 mg/dL (1.6-2.6); Osmolality,Calculated 307 (280-300); Phosphorous 3.7 mg/dL (2.7-4.5); Potassium 4.4 mEq/L (3.5-5.1); Sodium 141 mEq/L (136-145); Total Protein 6.1 g/dL (6.4-8.9); eGFR For African Americans > 60 (> 60); eGFR For Non-African Americans > 60 (> 60)
[2020-06-09] MEDS: Doxycycline 100 MG in 0.9 % Sodium Chloride Mini Bag 100 ML IVPB SCH ×2 (06:23→18:06)
[2020-06-09] MEDS: Pantoprazole 40 MG VIAL IVP SCH ×2 (06:23→18:06)
[2020-06-09] MEDS: Docusate Oral Soln 100 MG/10 ML UDC GTUBE SCH ×2 (08:07→21:39)
[2020-06-09] MEDS: Chlorhexidine Rinse 15 ML MOUTHWASH MM SCH ×2 (08:07→21:39)
[2020-06-09] MEDS: FentaNYL (PF) 2,500 MCG/50 ML IV.SOLN IVC SCH (09:07)
[2020-06-09] MEDS: Insulin DETEMIR 100 UNIT/ML X5UNITS SQ SCH ×2 (09:32→21:39)
[2020-06-09] MEDS: Leptospermum Honey Gel 44 ML TUBE TP SCH (09:32)
[2020-06-09] MEDS ORDERED: Furosemide 40 MG/4 ML VIAL IVP ONE (10:46)
[2020-06-09] MEDS: Norepinephrine 4 MG/254 ML IV.SOLN IVC SCH ×2 (11:21→20:12)
[2020-06-09] MEDS: Dexmedetomidine HCl 400 MCG/100 ML MLS IVC SCH (12:25)
[2020-06-09 13:08] LABS: Bilirubin,Urine Negative (Negative); Blood,Urine Negative (Negative); Clarity,Urine Clear (Clear); Color,Urine Colorless (Yellow); Glucose,Urine (UA) Normal (Normal); Ketones,Urine Negative (Negative); Leukocyte Esterase,Urine Negative (Negative); Nitrite,Urine Negative (Negative); Protein,Urine Negative (Neg-Trace); Specific Gravity,Urine 1.011 (1.010-1.025); Urobilinogen,Urine Normal (Normal)
[2020-06-09] MEDS: Lactulose Oral Soln 20 GM/30 ML UDC GTUBE SCH (21:39)
[2020-06-09] MEDS: Bisacodyl 10 MG RECTAL SUPPOSITORY RC SCH (21:40)
[2020-06-10] MEDS: Artificial Tears SOLN 15 ML BOTTLE BOTH EYES SCH ×6 (00:01→20:56)
[2020-06-10] MEDS: Meropenem 1,000 MG in Water for inj. (sterile) 20 ML IVP SCH ×3 (00:02→16:01)
[2020-06-10] MEDS: Insulin LISPRO 300 UNITS/3 ML VIAL SQ SCH ×6 (01:03→20:56)
[2020-06-10] MEDS: FentaNYL (PF) 2,500 MCG/50 ML IV.SOLN IVC SCH ×2 (01:05→10:05)
[2020-06-10] MEDS: Acetaminophen 325 MG TABLET PO PRN (01:09)
[2020-06-10] MEDS: *HR* Heparin 5,000 UNIT/ML VIAL IVP PRN (02:30)
[2020-06-10] MEDS: Ipratropium 1 PUFF INHALER IH SCH ×6 (03:44→23:44)
[2020-06-10 04:39] LABS: ABG Base Excess 10 mEq/L (-2 to 3); ABG HCO3 37 mEq/L (21-27); ABG Oxygen Saturation 92 % (95-98); ABG PCO2 62 mmHg (35-45); ABG PH 7.38 pH Units (7.32-7.45); ABG PO2 69 mmHg (85-104); ABG TCO2 39 mEq/L (20-26); Blood Gas Modality ASSIST CONTROL; Blood Gas VT 440 cc
[2020-06-10 05:04] LABS: VBG Ionized Calcium 1.13 mmol/L (1.15-1.35)
[2020-06-10 05:11] LABS: Basophils # 0.1 K/mcL (0.0-0.2); Basophils % 0.4 %; Eosinophils # 0.2 K/mcL (0.0-0.6); Eosinophils % 1.1 %; Hematocrit 27.8 % (37.5-50.1); Hemoglobin 8.6 g/dL (12.9-16.9); Immature Granulocytes % 0.9 % (0-4); Lymphocytes # 2.4 K/mcL (0.6-4.6); Lymphocytes % 11.7 %; Mean Corpuscular HGB Conc 30.9 g/dL (31.6-35.5); Mean Corpuscular Hemoglobin 30.6 pg (28.0-33.3); Mean Corpuscular Volume 98.9 fL (83.0-100.0); Mean Platelet Volume 11.7 fL (9.4-12.4); Monocytes # 1.3 K/mcL (0.0-1.3); Monocytes % 6.6 %; Neutrophils # 16.1 K/mcL (1.6-8.9); Nucleated Red Blood Cells 0.1 /100 WBC (0); Platelet Count 273 K/mcL (140-400); Red Blood Count 2.81 M/mcL (4.19-5.50); Red Cell Distribution Width 13.5 % (11.5-14.5); Segmented Neutrophils % 79.3 %; White Blood Count 20.3 K/mcL (4.3-11.1)
[2020-06-10 05:17] LABS: Alanine Aminotransferase 28 Units/L (7-52); Albumin 2.6 g/dL (3.5-5.7); Albumin/Globulin Ratio 0.8 (1.1-2.2); Alkaline Phosphatase 63 Units/L (34-104); Aspartate Amino Transferase 31 Units/L (13-39); BUN/Creatinine Ratio 94 (6-26); Bilirubin,Total 0.3 mg/dL (0.3-1.0); Blood Urea Nitrogen 44 mg/dL (8-23); Calcium 8.2 mg/dL (8.6-10.3); Carbon Dioxide 34 mEq/L (23-29); Chloride 103 mEq/L (98-107); Globulin 3.4 g/dL (2.4-3.5); Glucose 136 mg/dL (70-105); Magnesium 2.5 mg/dL (1.6-2.6); Osmolality,Calculated 309 (280-300); Phosphorous 1.9 mg/dL (2.7-4.5); Potassium 3.6 mEq/L (3.5-5.1); Sodium 143 mEq/L (136-145); eGFR For African Americans > 60 (> 60); eGFR For Non-African Americans > 60 (> 60)
[2020-06-10] MEDS: Doxycycline 100 MG in 0.9 % Sodium Chloride Mini Bag 100 ML IVPB SCH (06:37)
[2020-06-10] MEDS: Pantoprazole 40 MG VIAL IVP SCH ×2 (06:37→18:54)
[2020-06-10] MEDS: Dexmedetomidine HCl 400 MCG/100 ML MLS IVC SCH ×2 (07:00→15:51)
[2020-06-10] MEDS: Norepinephrine 4 MG/254 ML IV.SOLN IVC SCH ×2 (08:30→20:57)
[2020-06-10] MEDS: Chlorhexidine Rinse 15 ML MOUTHWASH MM SCH ×2 (09:23→21:54)
[2020-06-10] MEDS: Docusate Oral Soln 100 MG/10 ML UDC GTUBE SCH ×2 (09:25→21:53)
[2020-06-10] MEDS: *HR* Dextrose 50 % in Water (Vial) 50 ML VIAL IVP PRN (09:55)
[2020-06-10] MEDS: Insulin DETEMIR 100 UNIT/ML X5UNITS SQ SCH ×2 (10:17→20:56)
[2020-06-10] MEDS: Leptospermum Honey Gel 44 ML TUBE TP SCH (10:27)
[2020-06-10] MEDS: Heparin 25,000UNIT/250ML 1/2NS 25,000 UNIT/250 ML IV.SOLN IVC SCH (11:30)
[2020-06-10] MEDS ORDERED: Furosemide 20 MG/2 ML VIAL IVP ONE (13:38)
[2020-06-10 20:51] LABS: Phosphorous 2.9 mg/dL (2.7-4.5); Potassium 4.5 mEq/L (3.5-5.1)
[2020-06-10] MEDS: Lactulose Oral Soln 20 GM/30 ML UDC GTUBE SCH (21:53)
[2020-06-10] MEDS: Bisacodyl 10 MG RECTAL SUPPOSITORY RC SCH (21:54)
[2020-06-11] MEDS: Meropenem 1,000 MG in Water for inj. (sterile) 20 ML IVP SCH ×2 (00:06→08:41)
[2020-06-11] MEDS: Artificial Tears SOLN 15 ML BOTTLE BOTH EYES SCH ×4 (00:06→12:05)
[2020-06-11] MEDS: Insulin LISPRO 300 UNITS/3 ML VIAL SQ SCH ×4 (00:06→12:16)
[2020-06-11] MEDS: FentaNYL (PF) 2,500 MCG/50 ML IV.SOLN IVC SCH ×2 (01:10→13:01)
[2020-06-11] MEDS: *HR* Midazolam HCl 2 MG/2 ML VIAL IVP PRN ×4 (01:18→08:48)
[2020-06-11] MEDS: Dexmedetomidine HCl 400 MCG/100 ML MLS IVC SCH ×2 (03:14→09:29)
[2020-06-11] MEDS: Heparin 25,000UNIT/250ML 1/2NS 25,000 UNIT/250 ML IV.SOLN IVC SCH (03:16)
[2020-06-11] MEDS: Ipratropium 1 PUFF INHALER IH SCH ×3 (03:24→11:43)
[2020-06-11 04:06] LABS: VBG Ionized Calcium 1.06 mmol/L (1.15-1.35)
[2020-06-11 04:07] LABS: Basophils # 0.1 K/mcL (0.0-0.2); Basophils % 0.2 %; Eosinophils # 0.3 K/mcL (0.0-0.6); Eosinophils % 1.2 %; Hematocrit 26.6 % (37.5-50.1); Hemoglobin 8.4 g/dL (12.9-16.9); Immature Granulocytes % 1.2 % (0-4); Lymphocytes # 1.5 K/mcL (0.6-4.6); Lymphocytes % 6.1 %; Mean Corpuscular HGB Conc 31.6 g/dL (31.6-35.5); Mean Corpuscular Hemoglobin 30.8 pg (28.0-33.3); Mean Corpuscular Volume 97.4 fL (83.0-100.0); Mean Platelet Volume 11.6 fL (9.4-12.4); Monocytes # 1.1 K/mcL (0.0-1.3); Monocytes % 4.6 %; Neutrophils # 20.9 K/mcL (1.6-8.9); Platelet Count 260 K/mcL (140-400); Red Blood Count 2.73 M/mcL (4.19-5.50); Red Cell Distribution Width 13.7 % (11.5-14.5); Segmented Neutrophils % 86.7 %; White Blood Count 24.2 K/mcL (4.3-11.1)
[2020-06-11 04:20] LABS: ABG Base Excess 8 mEq/L (-2 to 3); ABG HCO3 34 mEq/L (21-27); ABG Oxygen Saturation 82 % (95-98); ABG PCO2 53 mmHg (35-45); ABG PH 7.41 pH Units (7.32-7.45); ABG PO2 47 mmHg (85-104); ABG TCO2 36 mEq/L (20-26); Blood Gas Modality AF; Blood Gas VT 440 cc
[2020-06-11 04:25] LABS: Alanine Aminotransferase 21 Units/L (7-52); Albumin 2.5 g/dL (3.5-5.7); Albumin/Globulin Ratio 0.7 (1.1-2.2); Alkaline Phosphatase 66 Units/L (34-104); Aspartate Amino Transferase 29 Units/L (13-39); BUN/Creatinine Ratio 85 (6-26); Bilirubin,Total 0.3 mg/dL (0.3-1.0); Blood Urea Nitrogen 34 mg/dL (8-23); Calcium 8.2 mg/dL (8.6-10.3); Carbon Dioxide 33 mEq/L (23-29); Chloride 104 mEq/L (98-107); Globulin 3.5 g/dL (2.4-3.5); Glucose 92 mg/dL (70-105); Magnesium 2.3 mg/dL (1.6-2.6); Osmolality,Calculated 299 (280-300); Phosphorous 2.7 mg/dL (2.7-4.5); Potassium 4.4 mEq/L (3.5-5.1); Sodium 141 mEq/L (136-145); eGFR For African Americans > 60 (> 60); eGFR For Non-African Americans > 60 (> 60)
[2020-06-11] MEDS: Calcium Gluconate 1gm/50mL 1 GM/50 ML BAG IVPB PRN (04:46)
[2020-06-11] MEDS: Pantoprazole 40 MG VIAL IVP SCH (04:46)
[2020-06-11] MEDS ORDERED: *HR* Etomidate 20 MG/10 ML AMPUL IVP ONE (05:24)
[2020-06-11] MEDS: *HR* Heparin 5,000 UNIT/ML VIAL IVP PRN (06:04)
[2020-06-11] MEDS ORDERED: Cisatracurium 200 MG in 0.9 % Sodium Chloride 180 ML IVC SCH (07:45)
[2020-06-11] MEDS: Chlorhexidine Rinse 15 ML MOUTHWASH MM SCH (08:41)
[2020-06-11] MEDS: Docusate Oral Soln 100 MG/10 ML UDC GTUBE SCH (08:41)
[2020-06-11] MEDS ORDERED: Furosemide 40 MG/4 ML VIAL IVP SCH (09:00)
[2020-06-11] MEDS: Leptospermum Honey Gel 44 ML TUBE TP SCH (09:25)
[2020-06-11] MEDS: Insulin DETEMIR 100 UNIT/ML X5UNITS SQ SCH (09:25)
[2020-06-11] MEDS ORDERED: *HR* LORazepam 2 MG/ML VIAL IVP PRN (14:21)
[2020-06-11] MEDS ORDERED: Glycopyrrolate 0.2 MG/ML VIAL IVP ONE (14:34)
[2020-06-11] MEDS ORDERED: Scopolamine Patch 1.5 MG PATCH.TD72 TD SCH (14:45)
[2020-06-11 15:36] VITALS: BP 104/57
[2020-06-11] MEDS ORDERED: *HR* Heparin 5,000 UNIT/ML VIAL SQ SCH (18:00)
== END 2020-06-11 18:45 | disposition expired | DRG 870 ==
LOC: 2NENU → OBSVTOIN 15:19 → SUATTDRO 15:19
PROVIDERS: ADMIT Internal Medicine; ATTEND Internal Medicine